=== PATIENT | male | born 1965 | race Caucasian/White ===

== ENCOUNTER 2020-03-04 06:56 | Outpatient (REF) | payer BC, SELFPAY ==
[2020-03-04 08:59] LABS: Alanine Aminotransferase 66 U/L (0-40); Albumin Level 4.5 g/dL (3.5-5.0); Alkaline Phosphatase 47 U/L (39-117); Aspartate Amino Transferase 55 U/L (5-37); Bilirubin Direct 0.2 mg/dL (0.0-0.5); Bilirubin Total 0.6 mg/dL (0.0-1.0); Cholesterol 169 mg/dL; HDL Cholesterol 46 mg/dL; LDL Cholesterol Calculated 94 mg/dl; Total Protein 6.9 g/dL (6.5-8.0); Triglycerides 147 mg/dL
[2020-03-04 09:37] LABS: Reflex LDLD? No
== END 2020-03-04 06:57 | disposition home or self-care (01) ==
LOC: HO.LAB 06:56
PROVIDERS: Visit Provider Internal Medicine
DX: E78.00 Pure hypercholesterolemia, unspecified (principal)
CPT/HCPCS: 36415; 80061; 80076

== ENCOUNTER 2020-07-04 15:56 | Outpatient (REF) | payer BC, SELFPAY ==
--- NOTE | 2020-07-04 | PFT_ITS ---
INDICATION: Shortness of breath. SPIROMETRY: The FEV1 to FVC of 82% with an FEV1 of 3.86 L, which is 97% predicted and an FVC of 4.68 L, which is 91% predicted. No significant response to bronchodilators noted. Normal small airways. Maximum voluntary ventilation 90% predicted. LUNG VOLUMES: Total lung capacity 92% predicted with an expiratory reserve volume of 34% predicted likely from elevated BMI. DIFFUSION CAPACITY: 90% predicted. COMPARISONS: None. INTERPRETATION: No obstructive nor restrictive ventilatory defects identified. No significant response to bronchodilators noted. Again, normal lung volumes except for decrease in the ERV due to an elevated BMI. Diffusion capacity is within normal limits. If asthma is in the differential, methacholine challenge may be helpful in assessing for hyper-reactive airways. Clinical correlation warranted. MD ZULY Camejo/KRIS / [phone]
== END 2020-07-04 15:57 | disposition home or self-care (01) ==
LOC: HO.RESP 15:56
PROVIDERS: PCP Internal Medicine; Visit Provider Internal Medicine
DX: J45.990 Exercise induced bronchospasm (principal)
CPT/HCPCS: 94060; 94727; 94729

== ENCOUNTER 2020-09-02 10:22 | Outpatient (REF) | payer BC, SELFPAY ==
[2020-09-02 10:25] LABS: MANUAL DIFF FLAG NO
[2020-09-02 10:45] LABS: Basophils Absolute Auto 0.1 X10*3/uL (0.0-0.2); Basophils Percent Auto 0.6 % (0-2); Eosinophils Absolute Auto 0.3 X10*3/uL (0.0-0.4); Eosinophils Percent Auto 3.6 % (0-4); Hematocrit 46.7 % (42-52); Hemoglobin 15.8 g/dl (14.0-18.0); Imm Gran Abs Auto 0.05 X10*3/uL (0.00-0.03); Imm Gran Pct Auto 0.6 % (0.0-0.4); Lymphocytes Absolute Auto 3.5 X10*3/uL (1.2-4.9); Lymphocytes Percent Auto 40.1 % (20-40); Mean Corpuscular HGB Conc 33.8 g/dl (31.0-36.0); Mean Corpuscular Hemoglobin 30.9 pg (27.0-33.0); Mean Corpuscular Volume 91.2 fL (80-98); Mean Platelet Volume 10.4 fL (9.4-12.4); Monocytes Absolute Auto 0.8 X10*3/uL (0.1-1.2); Monocytes Percent Auto 9.8 % (2-11); Neutrophils Absolute Auto 3.9 X10*3/uL (2.0-8.3); Neutrophils Percent Auto 45.3 % (45-73); Platelet Count 235 X10*3/uL (160-400); Red Blood Count 5.12 X10*6/uL (4.60-5.80); Red Cell Distribution Width 12.4 % (11.0-16.0); White Blood Count 8.6 X10*3/uL (4.8-10.8)
[2020-09-02 11:11] LABS: Glucose Urine UA NEG (NEG); Leukocyte Esterase Urine NEG (NEG); Nitrite Urine NEG (NEG); Specific Gravity - Urine 1.025 (1.005-1.025); Urine Blood 2+ (NEG); Urine Ketones NEG (NEG); Urine Protein NEG (NEG-TRACE)
[2020-09-02 11:13] LABS: Appearance Urine CLEAR; Color Urine YELLOW
[2020-09-02 11:28] LABS: Alanine Aminotransferase 25 U/L (0-40); Albumin Level 4.3 g/dL (3.5-5.0); Alkaline Phosphatase 36 U/L (39-117); Anion Gap 14 (12-20); Aspartate Amino Transferase 25 U/L (5-37); Bilirubin Total 0.6 mg/dL (0.0-1.0); Blood Urea Nitrogen 16 mg/dL (9-16); Calcium 9.7 mg/dL (8.4-10.2); Carbon Dioxide 25 mmol/L (22-29); Chloride 106 mmol/L (96-108); Cholesterol 150 mg/dL; Estimated Glomerular Filt Rate > 60; Glucose Fasting 90 mg/dL (60-99); HDL Cholesterol 48 mg/dL; LDL Cholesterol Calculated 81 mg/dl; Potassium 4.6 mmol/L (3.3-5.1); Sodium 140 mmol/L (135-145); Total Protein 6.8 g/dL (6.5-8.0); Triglycerides 106 mg/dL
[2020-09-02 11:30] LABS: PSA,Total (Free>4and<10) 0.76 ng/mL (0.00-4.00); Reflex LDLD? No
[2020-09-02 11:44] LABS: WBC Urine 0 /HPF (0-4)
== END 2020-09-02 10:23 | disposition home or self-care (01) ==
LOC: HO.LNP 10:22
PROVIDERS: Visit Provider Internal Medicine
DX: Z00.00 Encounter for general adult medical examination without abnormal findings (principal); Z12.5 Encounter for screening for malignant neoplasm of prostate; R79.89 Other specified abnormal findings of blood chemistry; R09.89 Other specified symptoms and signs involving the circulatory and respiratory systems; E78.00 Pure hypercholesterolemia, unspecified
CPT/HCPCS: 80053; 80061; 81001; 81003; 84153; 85025

== ENCOUNTER 2021-03-19 10:26 | Outpatient (REF) | payer BC, SELFPAY ==
[2021-03-19 11:35] LABS: Alanine Aminotransferase 29 U/L (0-40); Albumin Level 4.3 g/dL (3.5-5.0); Alkaline Phosphatase 41 U/L (39-117); Aspartate Amino Transferase 24 U/L (5-37); Bilirubin Direct 0.2 mg/dL (0.0-0.5); Bilirubin Total 0.5 mg/dL (0.0-1.0); Cholesterol 164 mg/dL; HDL Cholesterol 41 mg/dL; LDL Cholesterol Calculated 96 mg/dl; Total Protein 7.1 g/dL (6.5-8.0); Triglycerides 138 mg/dL
[2021-03-19 11:57] LABS: Reflex LDLD? No
== END 2021-03-19 10:27 | disposition home or self-care (01) ==
LOC: HO.LNP 10:26
PROVIDERS: Visit Provider Internal Medicine
DX: E78.00 Pure hypercholesterolemia, unspecified (principal)
CPT/HCPCS: 80061; 80076

== ENCOUNTER → 2021-05-21 12:48 | Outpatient (BNVA) | payer BC, SELFPAY | PROVIDERS: PCP Internal Medicine; Visit Provider Orthopaedic Surgery | DX: M76.62 Achilles tendinitis, left leg (principal) | CPT/HCPCS: 99202 ==

== ENCOUNTER → 2021-07-02 15:20 | Outpatient (BNVA) | payer BC, SELFPAY | PROVIDERS: PCP Internal Medicine; Visit Provider Orthopaedic Surgery | DX: M76.62 Achilles tendinitis, left leg (principal) ==

== ENCOUNTER 2021-09-17 10:56 | Outpatient (REF) | payer BC, SELFPAY ==
[2021-09-17 10:59] LABS: MANUAL DIFF FLAG NO
[2021-09-17 11:12] LABS: Appearance Urine CLEAR; Color Urine STRAW; Glucose Urine UA NEG (NEG); Leukocyte Esterase Urine NEG (NEG); Nitrite Urine NEG (NEG); Specific Gravity - Urine <= 1.005 (1.005-1.025); Urine Blood 2+ (NEG); Urine Ketones NEG (NEG); Urine Protein NEG (NEG-TRACE)
[2021-09-17 11:15] LABS: Basophils Absolute Auto 0.1 X10*3/uL (0.0-0.2); Basophils Percent Auto 0.7 % (0-2); Eosinophils Absolute Auto 0.1 X10*3/uL (0.0-0.4); Eosinophils Percent Auto 1.2 % (0-4); Hematocrit 47.9 % (42.0-52.0); Hemoglobin 16.4 g/dl (14.0-18.0); Imm Gran Abs Auto 0.02 X10*3/uL (0.00-0.03); Imm Gran Pct Auto 0.2 % (0.0-0.4); Lymphocytes Absolute Auto 2.3 X10*3/uL (1.2-4.9); Lymphocytes Percent Auto 26.8 % (20-40); Mean Corpuscular HGB Conc 34.2 g/dl (31.0-36.0); Mean Corpuscular Hemoglobin 31.4 pg (27.0-33.0); Mean Corpuscular Volume 91.8 fL (80.0-98.0); Mean Platelet Volume 10.1 fL (9.4-12.4); Monocytes Absolute Auto 0.9 X10*3/uL (0.1-1.2); Monocytes Percent Auto 9.9 % (2-11); Neutrophils Absolute Auto 5.3 x10*3/uL (2.0-8.3); Neutrophils Percent Auto 61.2 % (45-73); Platelet Count 293 X10*3/uL (160-400); Red Blood Count 5.22 X10*6/uL (4.60-5.80); White Blood Count 8.7 X10*3/uL (4.8-10.8)
[2021-09-17 11:32] LABS: Squamous Epithelial Cell Urine TRACE /LPF; WBC Urine 0 /HPF (0-4)
[2021-09-17 11:53] LABS: Alanine Aminotransferase 32 U/L (0-40); Albumin Level 4.6 g/dL (3.5-5.0); Alkaline Phosphatase 43 U/L (39-117); Anion Gap 12 (12-20); Aspartate Amino Transferase 30 U/L (5-37); Bilirubin Total 0.7 mg/dL (0.0-1.0); Blood Urea Nitrogen 15 mg/dL (9-16); Calcium 9.3 mg/dL (8.4-10.2); Carbon Dioxide 24 mmol/L (22-29); Chloride 104 mmol/L (96-108); Cholesterol 166 mg/dL; Estimated Glomerular Filt Rate > 60; Glucose Fasting 98 mg/dL (60-99); HDL Cholesterol 47 mg/dL; LDL Cholesterol Calculated 97 mg/dl; Potassium 4.3 mmol/L (3.3-5.1); Sodium 136 mmol/L (135-145); Total Protein 7.1 g/dL (6.5-8.0); Triglycerides 113 mg/dL
== END 2021-09-17 10:57 | disposition home or self-care (01) ==
LOC: HO.LNP 10:56
PROVIDERS: Visit Provider Internal Medicine
DX: Z00.00 Encounter for general adult medical examination without abnormal findings (principal); E78.00 Pure hypercholesterolemia, unspecified
CPT/HCPCS: 80053; 80061; 81001; 85025

== ENCOUNTER 2021-09-22 15:37 | Outpatient (REF) | payer BC, SELFPAY ==
[2021-09-22 16:39] LABS: PSA,Total (Free>4and<10) 0.58 ng/mL (0.00-4.00)
== END 2021-09-22 15:38 | disposition home or self-care (01) ==
LOC: HO.LNP 15:37
PROVIDERS: Visit Provider Internal Medicine
DX: Z12.5 Encounter for screening for malignant neoplasm of prostate (principal); E78.00 Pure hypercholesterolemia, unspecified
CPT/HCPCS: 84153

== ENCOUNTER 2021-12-03 13:58 | Outpatient (REF) | payer BC, SELFPAY ==
--- NOTE | ~2021-12-03 | US_ITS ---
EXAMINATION: US SOFT TISSUE HEAD/NECK CLINICAL INFORMATION: Pilar cyst of scalp. Palpable lump slightly left of midline. COMPARISON: Ultrasound soft tissue head/neck 10/18/2019. TECHNIQUE: Linear transducer grayscale and color Doppler examination of the lump is slightly left of midline. FINDINGS: Limited imaging through the palpable lump left of midline is in a complex echogenic area measuring 4.6 x 3.4 x 1.9 cm. This may represent a sebaceous cyst. US/US soft tiss head and/or neck IMPRESSION: Soft nonvascular mass left the scalp of midline with multiple echogenic areas within most suggestive of a sebaceous cysts. It is well delineated and has circumferential wall. If clinically deemed necessary, a surgical enucleation can be performed. Correlation with noncontrast CT brain prior to removal can be performed.
== END 2021-12-03 13:59 | disposition home or self-care (01) ==
LOC: HO.US 13:58
PROVIDERS: Visit Provider Internal Medicine
DX: L72.11 Pilar cyst (principal)
CPT/HCPCS: 76536

== ENCOUNTER 2022-02-02 14:53 | Outpatient (REF) | payer BC, SELFPAY ==
[2022-02-02 13:52] VITALS: BMI 32.8
[2022-02-02 13:54] VITALS: BP 163/85; PULSE 58; RESP 16; TEMP 36.7; O2SAT 98
[2022-02-02 14:45] VITALS: BP 146/80; PULSE 63; RESP 16; O2SAT 98
--- NOTE | 2022-02-02 14:45 | W.PM.OPN ---
Operative Note Operative Note Date of Service: 02/02/22 Narrative: Preoperative diagnosis: Pilar cyst posterior scalp Postoperative diagnosis: same Procedure: excision of Pilar cyst posterior scalp Surgeon: Erik Duncan MD Steward/Stewardess Chief Cargo Vessel: none Anesthesia: Sensorcaine 0.5% with epinephrine Indications for procedure: 56-year-old male patient presenting with enlarging Pilar cyst of the posterior scalp measuring approximately 3 cm in diameter Operative findings: Pilar cyst posterior scalp 3 cm Specimen: Pilar cyst posterior scalp Estimated blood loss: 2 mL Complications: none Procedure details: patient was brought to the minor surgery suite placed in a prone position. The site of surgery was confirmed by the patient in the posterior midline scalp. After assuring informed consent the skin was prepped with Betadine and draped in a sterile fashion. Local anesthesia was then infiltrated circumferentially around the cyst. Elliptical incision was then created oriented longitudinally. This was carried out through subcutaneous tissue up to the cyst wall. Sharp dissection was then used using the Metzenbaum scissors to excise around the cyst wall. The lesion was excised and sent to pathology for further examination. Hemostasis was assured using light pressure. Dermis was then reapproximated using interrupted 3-0 Polysorb sutures. Skin was closed using interrupted 3-0 Prolene sutures. Bacitracin was then applied. The patient tolerated the procedure well. He was discharged to home in stable condition.
== END 2022-02-02 14:54 | disposition home or self-care (01) ==
LOC: HO.MS 14:53
PROVIDERS: PCP Internal Medicine; Visit Provider Surgery
PROC: (CPT 11423; principal; 2022-02-02 14:00)
DX: L72.11 Pilar cyst (principal); Z79.899 Other long term (current) drug therapy; Z88.8 Allergy status to other drugs, medicaments and biological substances
CPT/HCPCS: 11423; 88304

== ENCOUNTER 2022-03-25 11:20 | Outpatient (REF) | payer BC, SELFPAY ==
[2022-03-25 12:01] LABS: Alanine Aminotransferase 30 U/L (0-40); Albumin Level 4.4 g/dL (3.5-5.0); Alkaline Phosphatase 43 U/L (39-117); Aspartate Amino Transferase 28 U/L (5-37); Bilirubin Direct 0.2 mg/dL (0.0-0.5); Bilirubin Total 0.7 mg/dL (0.0-1.0); Cholesterol 172 mg/dL; HDL Cholesterol 44 mg/dL; LDL Cholesterol Calculated 100 mg/dl; Total Protein 6.9 g/dL (6.5-8.0); Triglycerides 141 mg/dL
[2022-03-25 14:07] LABS: Reflex LDLD? No
== END 2022-03-25 11:21 | disposition home or self-care (01) ==
LOC: HO.LNP 11:20
PROVIDERS: Visit Provider Internal Medicine
DX: E78.00 Pure hypercholesterolemia, unspecified (principal)
CPT/HCPCS: 80061; 80076

== ENCOUNTER 2022-10-12 11:10 | Outpatient (REF) | payer BC, SELFPAY ==
[2022-10-12 11:15] LABS: MANUAL DIFF FLAG NO
[2022-10-12 12:20] LABS: Basophils Absolute Auto 0.1 X10*3/uL (0.0-0.2); Basophils Percent Auto 0.7 % (0-2); Eosinophils Absolute Auto 0.2 X10*3/uL (0.0-0.4); Hematocrit 48.5 % (42.0-52.0); Hemoglobin 16.5 g/dl (14.0-18.0); Imm Gran Abs Auto 0.03 X10*3/uL (0.00-0.03); Imm Gran Pct Auto 0.4 % (0.0-0.4); Lymphocytes Absolute Auto 2.6 X10*3/uL (1.2-4.9); Mean Corpuscular Hemoglobin 31.3 pg (27.0-33.0); Mean Platelet Volume 10.7 fL (9.4-12.4); Monocytes Absolute Auto 0.8 X10*3/uL (0.1-1.2); Monocytes Percent Auto 10.5 % (2-11); Neutrophils Absolute Auto 3.9 x10*3/uL (2.0-8.3); Neutrophils Percent Auto 52.4 % (45-73); Platelet Count 277 X10*3/uL (160-400); Red Blood Count 5.27 X10*6/uL (4.60-5.80); Red Cell Distribution Width 12.1 % (11.0-16.0); White Blood Count 7.5 X10*3/uL (4.8-10.8)
[2022-10-12 12:22] LABS: Appearance Urine Clear; Color Urine Yellow; Glucose Urine UA Negative (Negative); Leukocyte Esterase Urine Negative (Negative); Nitrite Urine Negative (Negative); Specific Gravity - Urine 1.025 (1.005-1.025); UMIC TRIGGER UACC YES; Urine Blood Moderate (2+) (Negative); Urine Ketones Negative (Negative); Urine Protein Trace mg/dL (Neg-Trace)
[2022-10-12 12:25] LABS: Bacteria Urine None Seen (None Seen); RBC Urine >20 /HPF (0-2); Squamous Epithelial Cell Urine 0-2 /HPF (0-2); WBC Urine 0-5 /HPF (0-5)
[2022-10-12 12:29] LABS: Alanine Aminotransferase 41 U/L (0-40); Albumin Level 4.4 g/dL (3.5-5.0); Alkaline Phosphatase 46 U/L (39-117); Anion Gap 11 (12-20); Aspartate Amino Transferase 48 U/L (5-37); Bilirubin Total 0.4 mg/dL (0.0-1.0); Blood Urea Nitrogen 21 mg/dL (9-16); Calcium 9.7 mg/dL (8.4-10.2); Carbon Dioxide 28 mmol/L (22-29); Chloride 107 mmol/L (96-108); Cholesterol 151 mg/dL; Estimated Glomerular Filt Rate > 60; Glucose Fasting 95 mg/dL (60-99); HDL Cholesterol 44 mg/dL; LDL Cholesterol Calculated 93 mg/dl; Potassium 4.9 mmol/L (3.3-5.1); Sodium 141 mmol/L (135-145); Total Protein 7.3 g/dL (6.5-8.0); Triglycerides 73 mg/dL
[2022-10-12 12:46] LABS: PSA,Total (Free>4and<10) 0.58 ng/mL (0.00-4.00)
== END 2022-10-12 11:11 | disposition home or self-care (01) ==
LOC: HO.LNP 11:10
PROVIDERS: Visit Provider Internal Medicine
DX: Z00.00 Encounter for general adult medical examination without abnormal findings (principal); Z12.5 Encounter for screening for malignant neoplasm of prostate; E78.00 Pure hypercholesterolemia, unspecified
CPT/HCPCS: 80053; 80061; 81001; 84153; 85025

== ENCOUNTER 2023-02-25 08:54 | Outpatient (AMB) | payer BC, SELFPAY ==
--- NOTE | 2023-02-25 09:03 | A.OFFVIS_ITS ---
Intake Intake Visit Reasons: Newp- Strain of left foot Intake Note: Shar a 57 year old male presents today for an evaluation of left foot, DOI 12/12/22. Patient reports injuring his foot in dance class when he hand to put all his weight on the ball of his foot. He states that he didn't feel pain instantly but a couple days after he started to feel pain and soreness. Patient saw a weight shifter and got an MRI which showed he has a deep muscle strain. The basket weaved his foot for a week and a half which didn't give him relief. Also, he was prescribed 6 day prednisone to help with the pain, however it didn't help. Allergies Hayfebrol Allergy (Unknown, Uncoded 02/25/23 09:05) Unknown HPI Newp- Strain of left foot HPI Details 57-year-old male who presents to the off ice today for evaluation of left foot injury s/p dancing during a dance class when he put all his weight on the ball of his foot, 12/12/22. He reports he experienced pain and soreness after 2 days and was seen by a weight shifter where an MRI was ordered and was prescribed 6 days prednisone which did not help. He states he has pain in his foot with getting out of his car after prolonged sitting. He also c/o occasional sharp pain in his foot at night. He is currently able to ambulate without pain. He states his foot was basket weaved by his [employer] Tender for about 10 days ago which did not provide him any relief. [facility] Surgical History History of removal of cyst (02/02/22) S/P right knee arthroscopy Family History Father Liver cancer Social History Current occupational status: employed Current occupation: [employer] Review of Systems Const All systems reviewed & are unremarkable except as noted in HPI and below Physical Exam Extrem Other: Left foot: Normal to inspection. No specific tenderness to palpation on exam. He does have tenderness along the plantar fascia. No bony abnormality no tenderness or defect along the Achilles tendon or the body of the calf. NVI. Results Reviewed Results Reviewed: Xrays were obtained in the office today and personally reviewed by me of the left foot show old avulsion fragment along the lateral edge of the foot Assessment & Plan Assessment & Plan (1) Plantar fasciitis of left foot: Code(s): M72.2 - Plantar fascial fibromatosis (2) Strain of soleus muscle: Code(s): S86.119A - Strain of other muscle(s) and tendon(s) of posterior muscle group at lower leg level, unspecified leg, initial encounter Qualifiers: Encounter type: initial encounter Laterality: left Qualified Code(s): S86.112A - Strain of other muscle(s) and tendon(s) of posterior muscle group at lower leg level, left leg, initial encounter (3) Ankle sprain: Code(s): S93.409A - Sprain of unspecified ligament of unspecified ankle, initial encounter Qualifiers: Encounter type: initial encounter Involved ligament of ankle: anterior talofibular ligament Laterality: left Qualified Code(s): S93.492A - Sprain of other ligament of left ankle, initial encounter Plan We discussed options which include night splinting for what appears to be plantar fasciitis along with physical therapy. He had an MRI at [facility] in December which show a psoas muscle sprain along with ATFL sprain. He will begin a course of physical therapy to work on gentle ROM, strengthening and proprioceptive training. If symptoms persist or worsens over the next 6-8 weeks, patient will contact the office, otherwise follow-up as needed. Orders: Orders XR foot LT min 3V Today M79.672 - Pain in left foot PT Evaluation and Treatment Today M72.2 - Plantar fascial fibromatosis, S86.119A - Strain of other muscle(s) and tendon(s) of posterior muscle group at lower leg level, unspecified leg, initial encounter, S93.409A - Sprain of unspecified ligament of unspecified ankle, initial encounter Patient Instructions: Scribed for Demetris Cooper PA-C, by Bishnu Cummings medical certification specialist, on 02/25/2023 at 9:00 AM MARKOS. Demetris Santana PA-C, have personally reviewed and agree with the information entered by the scribe. Coding Level of Care Code Est Pt Level 3 (51649) Diagnoses Plantar fasciitis of left foot M72.2 Strain of left soleus muscle, initial encounter S86.112A Encounter type: initial encounter Laterality: left Sprain of anterior talofibular ligament of left ankle, initial encounter S93.492A Encounter type: initial encounter Involved ligament of ankle: anterior talofibular ligament Laterality: left
== END 2023-02-25 09:37 | disposition home or self-care (01) ==
PROVIDERS: PCP Internal Medicine; Visit Provider Physician Assistant
DX: M72.2 Plantar fascial fibromatosis (principal); S93.492A Sprain of other ligament of left ankle, initial encounter; S86.112A Strain of other muscle(s) and tendon(s) of posterior muscle group at lower leg level, left leg, initial encounter
CPT/HCPCS: 99213

== ENCOUNTER 2023-02-25 10:17 | Outpatient (REF) | payer BC, SELFPAY | END 2023-02-25 10:18 | disposition home or self-care (01) | LOC: HO.HOSX 10:17 | PROVIDERS: Visit Provider Physician Assistant | DX: M79.672 Pain in left foot (principal); S86.112A Strain of other muscle(s) and tendon(s) of posterior muscle group at lower leg level, left leg, initial encounter | CPT/HCPCS: 73630 ==

== ENCOUNTER 2023-04-15 07:44 | Outpatient (REF) | payer BC, SELFPAY ==
[2023-04-15 08:22] LABS: Alanine Aminotransferase 60 U/L (0-40); Albumin Level 4.4 g/dL (3.5-5.0); Alkaline Phosphatase 45 U/L (39-117); Aspartate Amino Transferase 39 U/L (5-37); Bilirubin Direct 0.2 mg/dL (0.0-0.5); Bilirubin Total 0.4 mg/dL (0.0-1.0); Cholesterol 172 mg/dL (<200); HDL Cholesterol 49 mg/dL (>40); LDL Cholesterol Calculated 99 mg/dL (<100); Total Protein 7.1 g/dL (6.5-8.0); Triglycerides 123 mg/dL (<150)
[2023-04-15 08:35] LABS: Reflex LDLD? No
== END 2023-04-15 07:45 | disposition home or self-care (01) ==
LOC: HO.LAB 07:44
PROVIDERS: PCP Internal Medicine; Visit Provider Internal Medicine
DX: E78.00 Pure hypercholesterolemia, unspecified (principal)
CPT/HCPCS: 36415; 80061; 80076

== ENCOUNTER 2023-05-06 10:04 | Outpatient (AMB) | payer BC, SELFPAY ==
--- NOTE | 2023-05-06 10:26 | MHC.OFFVIS ---
Intake Intake Visit Reasons: ov- left ankle/foot, DOI 12/12/22 Intake Note: Shar 57 yr old male presents today for his follow up visit for his left ankle/foot injury from 12/12/22. States his pain is worse than before and therapy is not helping. States his therapist suggested a stress ultrasound or a CT scan for further evaluation. Allergies Hayfebrol Allergy (Unknown, Uncoded 05/06/23 10:30) Unknown HPI ov- left ankle/foot, DOI 12/12/22 HPI Details 57-year-old male who returns to the office today for a follow-up of left ankle injury, 12/12/22. He states he has pain which has been worsened since surgery and gets occasionally aggravated at night. He denies any pain with ambulation or going upstairs however he does have a sharp shooting pain with prolonged standing and achiness with sitting. He had attended physical therapy which did not provide him any relief. [facility] Surgical History History of removal of cyst (02/02/22) S/P right knee arthroscopy Family History Father Liver cancer Social History Current occupational status: employed Current occupation: [employer] Review of Systems Const All systems reviewed & are unremarkable except as noted in HPI and below Physical Exam Extrem Other: Left foot: Normal to inspection. No specific tenderness to palpation on exam. No bony abnormality no tenderness or defect along the Achilles tendon or the body of the calf. NVI. Assessment & Plan Assessment & Plan (1) Strain of left foot: Code(s): S96.912A - Strain of unspecified muscle and tendon at ankle and foot level, left foot, initial encounter Qualifiers: Encounter type: initial encounter Qualified Code(s): S96.912A - Strain of unspecified muscle and tendon at ankle and foot level, left foot, initial encounter Plan We discussed options which include using the boot to help get the pressure off of his foot while ambulating to see if the boot keeps the foot at rest. In the meantime, we will order a CT scan to further evaluate the source of his pain. He will follow-up once the scan is complete. Orders: Orders CT foot LT wo IV con Today S96.912A - Strain of unspecified muscle and tendon at ankle and foot level, left foot, initial encounter Patient Instructions: Scribed for Demetris Cooper PA-C, by Bishnu Cummings medical billing and coding specialist, on 05/06/2023 at 10:15 AM EST. Demetris Santana PA-C, have personally reviewed and agree with the information entered by the scribe. Coding Level of Care Code Est Pt Level 3 (43179) Diagnoses Strain of left foot, initial encounter S96.912A Encounter type: initial encounter
== END 2023-05-06 12:01 | disposition home or self-care (01) ==
PROVIDERS: PCP Internal Medicine; Referring Provider Internal Medicine; Visit Provider Physician Assistant
DX: S96.912A Strain of unspecified muscle and tendon at ankle and foot level, left foot, initial encounter (principal)
CPT/HCPCS: 99213

== ENCOUNTER → 2023-05-06 10:04 | Outpatient (BNVA) | payer BC, SELFPAY | PROVIDERS: PCP Internal Medicine; Visit Provider Physician Assistant ==

== ENCOUNTER 2023-06-01 07:41 | Outpatient (REF) | payer BC, SELFPAY ==
--- NOTE | ~2023-06-01 | CT_ITS ---
EXAMINATION: CT FOOT WITHOUT CONTRAST, LEFT CLINICAL INFORMATION: Left foot strain. Pain. COMPARISON: Most recent left foot radiographs dated 02/25/2023. Left foot MRI dated 01/19/2017. TECHNIQUE: Contiguous axial CT images of the left foot were obtained without contrast. Multiplanar reformats were provided and reviewed. This CT examination was performed using dose optimization techniques as appropriate, variously including the following: *Automated exposure control *Adjustment of mA and/or kV according to patient size (this includes techniques or standardized protocols for targeted exams where dose is matched to indication/reason for exam; i.e. extremities or head) *Use of iterative reconstruction technique. DOSE: 118 mGy-cm. FINDINGS: No acute fracture or dislocation. Chronic-appearing fracture of the tibial hallux sesamoid, unchanged when compared to the prior MRI. The ankle mortise is maintained. Moderate joint space narrowing with subchondral cystic change and marginal osteophytes at the 1st metatarsophalangeal joint. No concerning lytic or blastic osseous lesion. No talar osteochondral lesion. No abnormal soft tissue mass or fluid collection. No significant joint effusion. The visualized muscles and tendons are grossly intact. Evaluation is somewhat limited on CT examination. CT/CT foot LT wo IV con IMPRESSION: 1. No acute fracture or dislocation. 2. Chronic fracture of the tibial hallux sesamoid, unchanged when compared to the prior MRI. 3. 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
== END 2023-06-01 07:42 | disposition home or self-care (01) ==
LOC: HO.CT 07:41
PROVIDERS: PCP Internal Medicine; Visit Provider Physician Assistant
DX: M84.475A Pathological fracture, left foot, initial encounter for fracture (principal); M19.09 Primary osteoarthritis, other specified site; M79.672 Pain in left foot
CPT/HCPCS: 73700

== ENCOUNTER 2023-06-20 11:14 | Outpatient (REF) | payer BC, SELFPAY ==
[2023-06-20 11:41] LABS: Alanine Aminotransferase 35 U/L (0-40); Albumin Level 4.4 g/dL (3.5-5.0); Alkaline Phosphatase 45 U/L (39-117); Aspartate Amino Transferase 26 U/L (5-37); Bilirubin Direct 0.1 mg/dL (0.0-0.5); Bilirubin Total 0.3 mg/dL (0.0-1.0); Cholesterol 222 mg/dL (<200); HDL Cholesterol 41 mg/dL (>40); LDL Cholesterol Calculated 137 mg/dL (<100); Total Protein 7.3 g/dL (6.5-8.0); Triglycerides 224 mg/dL (<150)
[2023-06-20 11:50] LABS: Reflex LDLD? No
== END 2023-06-20 11:15 | disposition home or self-care (01) ==
LOC: HO.LNP 11:14
PROVIDERS: Visit Provider Internal Medicine
DX: E78.00 Pure hypercholesterolemia, unspecified (principal)
CPT/HCPCS: 80061; 80076

== ENCOUNTER 2023-06-22 15:14 | Outpatient (AMB) | payer BC, SELFPAY ==
[2023-06-22 15:14] VITALS: BMI 32.1
--- NOTE | 2023-06-22 15:14 | MHC.OFFVIS ---
Vital Signs 06/22/23 15:14 Height 5 ft 11 in Weight 230 lb BMI 32.1 Intake Visit Reasons: Tel-CT Foot LT-review Intake Note: Shar a 57 year old male who is scheduled for a telephone visit to review CT of left foot. Patient reports improvement in his pain since his last visit, stating he is about 90% better. Allergies Hayfebrol Allergy (Unknown, Uncoded 05/06/23 10:30) Unknown HPI HPI Tel-CT Foot LT-review: Details: Shar a 57 year old male who is scheduled for a telephone visit to review CT of left foot. Patient reports improvement in his pain since his last visit, stating he is about 90% better. PFSH Surgical History History of removal of cyst (02/02/22) S/P right knee arthroscopy Family History Father Liver cancer Social History Current occupational status: employed Current occupation: [employer] Review of Systems Const All systems reviewed & are unremarkable except as noted in HPI and below Physical Exam Vital Signs: BMI result Body Mass Index 32.1 Resp Effort & Inspection: normal respiratory effort and able to speak in complete sentences Telehealth Telehealth Telehealth Platform: Telephone Location of provider rendering services: practice address Location of patient: other (car) Patient Identification confirmed using: Name, : Yes Patient verbally consented to treatment: Yes Patient verbally consented to billing insurance company: Yes Patient informed of any privacy concerns related to visit: Yes Minutes spent on Phone/Video with Pt.: 12 Results Reviewed Results Reviewed: CT foot LT wo IV con 06/01/23 IMPRESSION: 1. No acute fracture or dislocation. 2. Chronic fracture of the tibial hallux sesamoid, unchanged when compared to the prior MRI. 3. 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 Assessment & Plan Assessment & Plan (1) Strain of left foot: Code(s): S96.912A - Strain of unspecified muscle and tendon at ankle and foot level, left foot, initial encounter Category: Medical Qualifiers: Encounter type: initial encounter Qualified Code(s): S96.912A - Strain of unspecified muscle and tendon at ankle and foot level, left foot, initial encounter Plan: He will continue with activity as tolerated since his pain is improving on its own. If he has any concerns he will contact our office , otherwise, prn. Coding Level of Care Code Tele Est Pt Level 3 (89211) Diagnoses Strain of left foot, initial encounter S96.912A Encounter type: initial encounter
== END 2023-06-22 15:45 | disposition home or self-care (01) ==
LOC: HO.HOS 15:14
PROVIDERS: PCP Internal Medicine; Referring Provider Internal Medicine; Visit Provider Physician Assistant
DX: S96.912A Strain of unspecified muscle and tendon at ankle and foot level, left foot, initial encounter (principal)
CPT/HCPCS: 99442

== ENCOUNTER → 2023-06-22 15:14 | Outpatient (BNVA) | payer BC, SELFPAY | PROVIDERS: PCP Internal Medicine; Visit Provider Physician Assistant ==

== ENCOUNTER 2023-09-13 16:31 | Outpatient (REF) | payer BC, SELFPAY ==
[2023-09-20 00:43] LABS: FIB-ALT 22 U/L (9-46); FIB-Alpha-2-Macroglobulin 280 mg/dL (106-279); FIB-Apolipoprotein A1 150 mg/dL (94-176); FIB-GGT 20 U/L (3-85); FIB-Haptoglobin 99 mg/dL (43-212); FIB-Total Bilirubin 0.3 mg/dL (0.2-1.2); Liver Fibrosis Stage F1; Nec Inflam Act Grade A0; Nec Inflam Act Score 0.09
== END 2023-09-13 16:32 | disposition home or self-care (01) ==
LOC: HO.LAB 16:31
PROVIDERS: PCP Internal Medicine; Visit Provider Internal Medicine Gastroenterology
DX: K75.81 Nonalcoholic steatohepatitis (NASH) (principal)
CPT/HCPCS: 36415; 81596

== ENCOUNTER 2023-10-06 11:00 | Outpatient (REF) | payer BC, SELFPAY ==
[2023-10-06 11:03] LABS: MANUAL DIFF FLAG NO
[2023-10-06 11:17] LABS: Appearance Urine Clear; Color Urine Yellow; Glucose Urine UA Negative (Negative); Leukocyte Esterase Urine Negative (Negative); Nitrite Urine Negative (Negative); PH 6.5 (5.0-9.0); UMIC TRIGGER UACC YES; Urine Blood Moderate (2+) (Negative); Urine Ketones Negative (Negative); Urine Protein Negative (Neg-Trace)
[2023-10-06 11:20] LABS: Basophils Absolute Auto 0.1 X10*3/uL (0.0-0.2); Basophils Percent Auto 0.9 % (0-2); Eosinophils Absolute Auto 0.3 X10*3/uL (0.0-0.4); Eosinophils Percent Auto 3.2 % (0-4); Hematocrit 46.8 % (42.0-52.0); Hemoglobin 16.1 g/dl (14.0-18.0); Imm Gran Abs Auto 0.03 X10*3/uL (0.00-0.03); Imm Gran Pct Auto 0.3 % (0.0-0.4); Lymphocytes Absolute Auto 3.4 X10*3/uL (1.2-4.9); Lymphocytes Percent Auto 36.1 % (20-40); Mean Corpuscular HGB Conc 34.4 g/dl (31.0-36.0); Mean Corpuscular Hemoglobin 32.4 pg (27.0-33.0); Mean Corpuscular Volume 94.2 fL (80.0-98.0); Mean Platelet Volume 10.4 fL (9.4-12.4); Monocytes Percent Auto 10.9 % (2-11); Neutrophils Absolute Auto 4.6 x10*3/uL (2.0-8.3); Neutrophils Percent Auto 48.6 % (45-73); Platelet Count 289 X10*3/uL (160-400); Red Blood Count 4.97 X10*6/uL (4.60-5.80); Red Cell Distribution Width 12.2 % (11.0-16.0); White Blood Count 9.4 X10*3/uL (4.8-10.8)
[2023-10-06 11:21] LABS: Bacteria Urine None Seen (None Seen); Hyaline Casts Urine 0-2 /LPF (0-2); Squamous Epithelial Cell Urine 0-2 /HPF (0-2); WBC Urine 0-5 /HPF (0-5)
[2023-10-06 11:34] LABS: Alanine Aminotransferase 27 U/L (0-40); Albumin Level 4.5 g/dL (3.5-5.0); Alkaline Phosphatase 43 U/L (39-117); Anion Gap 12 (12-20); Aspartate Amino Transferase 27 U/L (5-37); Bilirubin Direct 0.1 mg/dL (0.0-0.5); Bilirubin Total 0.5 mg/dL (0.0-1.0); Blood Urea Nitrogen 20 mg/dL (9-16); Calcium 9.9 mg/dL (8.4-10.2); Carbon Dioxide 28 mmol/L (22-29); Chloride 103 mmol/L (96-108); Cholesterol 228 mg/dL (<200); Estimated Glomerular Filt Rate > 60; Glucose Fasting 94 mg/dL (60-99); HDL Cholesterol 49 mg/dL (>40); LDL Cholesterol Calculated 145 mg/dL (<100); Potassium 4.8 mmol/L (3.3-5.1); Sodium 138 mmol/L (135-145); Total Protein 7.3 g/dL (6.5-8.0); Triglycerides 171 mg/dL (<150)
[2023-10-06 11:55] LABS: PSA,Total (Free>4and<10) 0.65 ng/mL (0.00-4.00)
== END 2023-10-06 11:01 | disposition home or self-care (01) ==
LOC: HO.LNP 11:00
PROVIDERS: Visit Provider Internal Medicine
DX: Z00.00 Encounter for general adult medical examination without abnormal findings (principal); Z87.448 Personal history of other diseases of urinary system; E78.00 Pure hypercholesterolemia, unspecified; K75.81 Nonalcoholic steatohepatitis (NASH); I10 Essential (primary) hypertension; Z12.5 Encounter for screening for malignant neoplasm of prostate
CPT/HCPCS: 80053; 80061; 80076; 81001; 82248; 84153; 85025

== ENCOUNTER 2023-12-27 08:59 | Day surgery (SDC) | payer BC, SELFPAY ==
[2023-11-25 16:02] VITALS: BMI 30.8
[2023-12-23 14:37] VITALS: BMI 30.8
--- NOTE | 2023-12-26 10:25 | HO.ANESPROP2 ---
Documented by User: Jessie Louis NP 12/26/23 10:26 HPI - Anesthesia Eval Consult details Narrative: 58yo M for Colonoscopy PMFSH Active Problems Active Problems: All Active Problems Strain of left foot (Acute) Ankle sprain (Acute) Strain of soleus muscle (Acute) Plantar fasciitis of left foot (Acute) Pilar cyst (Acute) Left Achilles tendinitis (Acute) Past Medical History Medical History Microscopic hematuria Gout Nonalcoholic steatohepatitis Family History Family History Father Liver cancer Surgical History Surgical History H/O colonoscopy History of removal of cyst (02/02/22) S/P right knee arthroscopy Social History Social History Patient Tobacco Use Status: Never used Tobacco Use of substances other than those prescribed or required for medical reasons: No Have you been hit, kicked, punched, or otherwise hurt by someone within the past year? If so, by whom?: No Are you DNR?: No Advance Directives: No Advance Directives Information Provided: Yes Recently lost weight without trying: No Nutrition Risks: No Nutritional Risk Current occupational status: employed Current occupation: [employer] Allergies Allergy/AdvReac Type Severity Reaction Status Date / Time mite-Dermatophagoides Allergy Unknown Verified 12/27/23 09:35 farinae, jason [dust mite - [place]] mold Allergy Unknown Verified 12/27/23 09:35 pollen extracts Allergy Unknown Verified 12/27/23 09:35 Hayfebrol Allergy Unknown Unknown Uncoded 12/27/23 09:35 Home Medications ?Medication ?Instructions ?Recorded ?Confirmed ?Last Taken ?Type indomethacin 50 mg capsule 50 mg PO TID PRN Outbreak 11/25/23 11/25/23 12/06/23 History valsartan 160 1 tab PO DAILY 11/25/23 11/25/23 12/25/23 History mg-hydrochlorothiazide 12.5 mg tablet Zyrtec 1 tab PO DAILY 12/27/23 12/27/23 12/25/23 History rosuvastatin 5 mg tablet 5 mg PO DAILY 12/27/23 12/27/23 12/25/23 History Exam Height,Weight and Vital Signs: Height 5 ft 11 in Weight 100.244 kg Assessment and Plan Assessment Anesthesia Assessment: Chart Reviewed Documented by User: Alicia Blum MD 12/27/23 09:48 PMFSH Past Medical History Medical History Microscopic hematuria Gout Nonalcoholic steatohepatitis Family History Family History Father Liver cancer Family history of problems with anesthesia: No Surgical History Surgical History H/O colonoscopy History of removal of cyst (02/02/22) S/P right knee arthroscopy History of Problems with Anesthesia: No Social History Social History Patient Tobacco Use Status: Never used Tobacco Use of substances other than those prescribed or required for medical reasons: No Have you been hit, kicked, punched, or otherwise hurt by someone within the past year? If so, by whom?: No Are you DNR?: No Advance Directives: No Advance Directives Information Provided: Yes Recently lost weight without trying: No Nutrition Risks: No Nutritional Risk Current occupational status: employed Current occupation: [employer] Allergies Allergy/AdvReac Type Severity Reaction Status Date / Time mite-Dermatophagoides Allergy Unknown Verified 12/27/23 09:35 farnila jason [dust mite - [place]] mold Allergy Unknown Verified 12/27/23 09:35 pollen extracts Allergy Unknown Verified 12/27/23 09:35 Hayfebrol Allergy Unknown Unknown Uncoded 12/27/23 09:35 Home Medications ?Medication ?Instructions ?Recorded ?Confirmed ?Last Taken ?Type indomethacin 50 mg capsule 50 mg PO TID PRN Outbreak 11/25/23 11/25/23 12/06/23 History valsartan 160 1 tab PO DAILY 11/25/23 11/25/23 12/25/23 History mg-hydrochlorothiazide 12.5 mg tablet Zyrtec 1 tab PO DAILY 12/27/23 12/27/23 12/25/23 History rosuvastatin 5 mg tablet 5 mg PO DAILY 12/27/23 12/27/23 12/25/23 History Exam Airway Mallampati Class: II TM Dist: >3cm Neck ROM: Full Heart: rrr Lungs: cta Assessment and Plan Assessment Anesthesia Assessment: Anesthesia Plan Discussed Final Anesthetic Review Family History of Problems with Anesthesia: No History of Problems with Anesthesia: No NPO: Yes ASA Class: II Final Preanesthetic Review: No Changes in Pt Med Stat, Meds/Allgs Chart Reviewed, Consent Obtained/Reviewed and Anes Risks/Benef Reviewed Patient Risk: Low Procedure Risk: Low Anesthetic Plan Anesthetic Plan: MAC: Disposition: Standard PACU
[2023-12-27 09:10] VITALS: BMI 30.7
[2023-12-27 09:34] VITALS: BP 131/66; PULSE 67; RESP 16; TEMP 36.5; O2SAT 98
[2023-12-27] MEDS: Lactated Ringers 1,000 ML 100 ML IVCONT (09:35)
--- NOTE | 2023-12-27 09:46 | P.HPSUR_ITS ---
Pre-Procedural Eval Section A - 24 Hr Update-Section A only Date of Service: 12/27/23 Section B - Complete if H&P > 30 days Chief Complaint: Other specified symptoms and signs involving Details of Present Illness: see H&P no changes Relevant Family History (Specify if Yes): No Relevant Social History: None Present Medications: see Short Stay Collaborative assessment Medical History: No relevant PMH History of Previous Operations: No relevant previous surgery Allergies: Allergies Allergy/AdvReac Type Severity Reaction Status Date / Time mite-Dermatophagoides Allergy Unknown Verified 12/27/23 09:35 farinae, jason [dust mite - [place]] mold Allergy Unknown Verified 12/27/23 09:35 pollen extracts Allergy Unknown Verified 12/27/23 09:35 Hayfebrol Allergy Unknown Unknown Uncoded 12/27/23 09:35 Review of Systems Sugical H&P ROS: Negative: Constitution, Cardiovascular, Respiratory, Neurological, Psychiatric, Hem-Onc, Allergic/Immunologic, Gastrointestinal, Genitourinary, Musculoskeletal, Integumentary, Endocrine and Eyes/Ears/Nose/Throat Exam Surgical H&P Exam: Normal: HEENT, Normal: Heart, Normal: Lungs, Normal: Extremities, Normal: Abdomen, Normal: Skin and Normal: Neurological Plan I have reviewed the history and physical and performed a pertinent physical examination on my patient. No changes have occurred unless specified. Time Spent With Patient Time: Total time managing care of this patient today ____ minutes.
[2023-12-27 10:20] VITALS: BP 117/73; PULSE 53; RESP 18; TEMP 36.4; O2SAT 97
--- NOTE | 2023-12-27 10:29 | OP_ITS ---
DATE OF SERVICE: 12/27/2023 SURGEON: Cleve Rincon MD INDICATIONS: Colon cancer screening. PREOPERATIVE DIAGNOSIS: POSTOPERATIVE DIAGNOSIS: PROCEDURE PERFORMED: Colonoscopy to the terminal ileum with biopsy. ESTIMATED BLOOD LOSS: COMPLICATIONS: ANESTHESIA: Monitored anesthesia care. ASSISTANTS: SPECIMENS: DESCRIPTION OF PROCEDURE: A history and physical were performed. The risks and benefits of the procedure were explained to the patient, and informed consent was obtained. The patient was placed in the left lateral decubitus position. A digital rectal exam was performed and was found to be normal. The Olympus pediatric video colonoscope was introduced into the rectum and advanced to the cecum. The cecum was identified by transillumination, palpation, and identification of ileocecal valve. Examination was performed and the scope was removed. He tolerated the procedure well and was taken to recovery area in stable condition. FINDINGS: The terminal ileum was examined and appeared normal. The visualized colonic mucosa was normal. The quality of prep was good. In the right colon was a less than 5 mm sessile polyp, which was removed with biopsy forceps. No other polyps were identified. Retroflexed examination showed small internal hemorrhoids. IMPRESSION: Colon polyp. RECOMMENDATION: Follow up the biopsy results. MD LYNNETTE Dickinson/KRIS / [id number]
[2023-12-27 10:35] VITALS: BP 131/83; PULSE 58; RESP 16; TEMP 36.4; O2SAT 98
== END 2023-12-27 12:24 | disposition home or self-care (01) ==
PROVIDERS: PCP Internal Medicine; Visit Provider Internal Medicine Gastroenterology
PROC: 0DJD8ZZ Inspection of Lower Intestinal Tract, Via Natural or Artificial Opening Endoscopic (ICD-10-PCS; CPT 45378; principal; 2023-12-27 10:40)
DX: Z12.11 Encounter for screening for malignant neoplasm of colon (principal); Z83.719 Family history of colon polyps, unspecified; D12.2 Benign neoplasm of ascending colon; K64.8 Other hemorrhoids; R19.8 Other specified symptoms and signs involving the digestive system and abdomen; K75.81 Nonalcoholic steatohepatitis (NASH); E78.5 Hyperlipidemia, unspecified; R31.29 Other microscopic hematuria; Z79.899 Other long term (current) drug therapy; M10.9 Gout, unspecified
CPT/HCPCS: 45380; 88305; J2704

== ENCOUNTER 2024-01-23 07:11 | Outpatient (REF) | payer BC, SELFPAY ==
[2024-01-23 07:46] LABS: Alanine Aminotransferase 34 U/L (0-40); Albumin Level 4.2 g/dL (3.5-5.0); Alkaline Phosphatase 41 U/L (39-117); Aspartate Amino Transferase 36 U/L (5-37); Bilirubin Direct 0.1 mg/dL (0.0-0.5); Bilirubin Total 0.3 mg/dL (0.0-1.0); Cholesterol 136 mg/dL (<200); HDL Cholesterol 38 mg/dL (>40); LDL Cholesterol Calculated 71 mg/dL (<100); Total Protein 6.6 g/dL (6.5-8.0); Triglycerides 138 mg/dL (<150)
[2024-01-23 08:43] LABS: Reflex LDLD? No
== END 2024-01-23 07:12 | disposition home or self-care (01) ==
LOC: HO.LAB 07:11
PROVIDERS: PCP Internal Medicine; Visit Provider Internal Medicine
DX: E78.00 Pure hypercholesterolemia, unspecified (principal)
CPT/HCPCS: 36415; 80061; 80076

== ENCOUNTER 2024-02-07 14:27 | Outpatient (REF) | payer BC, SELFPAY ==
[2024-02-07 14:59] LABS: Uric Acid 9.2 mg/dL (3.4-7.0)
--- OUTSIDE RECORDS SUMMARY | 2024-02-08 22:05 | XMS_ITS ---
Author Organization Willie Palomino MD Address [address] [place] [phone] Care Team Providers Care Medical Assistant Internal Medicine Name Role Phone Willie Palomino Primary Care Provider ALLERGIES No Known Allergies RESULTS Component Value Reference Range Notes Uric Acid Reviewed date:02/07/2024 03:16:03 PM Interpretation: Performing Lab:[facility], [address] [place] [phone] Notes/Report: Uric Acid 9.2 3.4-7.0 mg/dL REASON FOR VISIT DISCOLORATION OF TOE left great toe x 2 weeks with gout MEDICATIONS Medication SIG (Take, Route, Frequency, Duration) Notes Start Date End Date Status Colchicine 0.6 MG 1 tablet Orally twic e a day for 10 days 01/24/2017 Not-Taking ZyrTEC Allergy 10 MG 1 tablet Orally Onc e a day for 30 day(s) Not-Taking Rosuvastatin Calcium 5 MG take one table t by mouth every evening Orally Once a day for 90 days Active Valsartan-hydroCHLOROthiazi de 160-12.5 MG TAKE ONE TABLET BY MOUTH EVERY DAY Active Albuterol Sulfate HFA 108 (90 Base) MCG/ACT 1 puff as needed Inhalation every 4 hrs 02/08/2023 Active predniSONE 20 MG 2 tablets Orally Onc e a day for 7 days 02/07/2024 Active Indomethacin 50 MG take one capsule(s) three times a day with food Orally Three times a day for 10 days Active Ibuprofen 200 MG 1 tablet with food o r milk as needed Orally Three times a day Not-Taking Cyclobenzaprine HCl 5 MG 1 or 2tablet at bedtime as needed Orally twice a day for 10 days 08/04/2021 Not-Taking Albuterol Sulfate HFA 108 (90 Base) MCG/ACT 1 puff as needed Inhalation every 4 hrs Not-Taking VITAL SIGNS BMI 31.82 kg/m2 02/07/2024 Blood pressure systolic 138 mm Hg 02/07/20 Blood pressure diastolic 72 mm Hg 024 Height 70.5 in 02/07/2024 Weight 225 lbs 02/07/2024 weight is up 4 pounds since 10-25-23 Encounters Encounter Location Date Provider Diagnosis Willie Palomino MD [address] [place] [phone] 02/07/2024 Willie Palomino Acute idiopathic gout involving toe of left foot M10.072 ASSESSMENTS Encounter Date Diagnosis Assessment Notes Treatment Notes Treatment Clinical Notes 02/07/2024 Acute idiopathic gout involving toe of left foot (ICD-10 - M10.072) patient verbalized understanding of medication and directions for use PLAN OF TREATMENT Medication Medication Name Sig Start Date Stop Date Notes predniSONE 20 MG 2 tablets Orally Once a day for 7 days Treatment Notes Assessment Notes Acute idiopathic gout involv ing toe of left foot patient verbalized understanding of medication and directions for use Next Appt Details Provider Name:Willie gonzales, 04/26/2024 09:00:00 AM, [address] [place] [address], [address], [phone], Provider Name:Willie gonzales, 10/23/2024 07:00:00 AM, [address] [place] [address], [phone], Provider Name:Willie gonzales, 10/30/2024 09:30:00 AM, [address] [place] [address], [phone], Progress Notes * Examination Category Sub-Category Detail Notes General Examination GENERAL APPEARANCE: normal HEART: no murmurs, rubs, ga llops , regular rate and rhythm LUNGS: good air movement , no wheezes, rales, rhonchi , clear to auscultation bilaterally EXTREMITIES: abnormal left great toe with mild swelling and no pain
--- OUTSIDE RECORDS SUMMARY | 2024-02-08 22:05 | XMS_ITS ---
Author Organization Willie Palomino MD Address [address] [place] [phone] Care Team Providers Care Drivers' Cash Clerk Name Role Phone Willie Palomino Primary Care Provider [phone] ALLERGIES No Known Allergies RESULTS Component Value Reference Range Notes Occult Blood, Stool, Guaiac Reviewed date:10/25/2023 02:01:28 PM Interpretation:Negative Performing Lab: Notes/Report: Negative Occult Blood, Stool, Guaiac Neg REASON FOR VISIT ANNUAL EXAM MEDICATIONS Medication SIG (Take, Route, Frequency, Duration) Notes Start Date End Date Status ZyrTEC Allergy 10 MG 1 tablet Orally Onc e a day for 30 day(s) Not-Taking Rosuvastatin Calcium 5 MG take one table t by mouth every evening Orally Once a day for 90 days Active Albuterol Sulfate HFA 108 (90 Base) MCG/ACT 1 puff as needed Inhalation every 4 hrs 02/08/2023 Active Colchicine 0.6 MG 1 tablet Orally twic e a day for 10 days 01/24/2017 Not-Taking Valsartan-hydroCHLOROthiazi de 160-12.5 MG TAKE ONE TABLET BY MOUTH EVERY DAY Active Indomethacin 50 MG take one capsule(s) three times a day with food Orally Three times a day for 10 days Active Ibuprofen 200 MG 1 tablet with food o r milk as needed Orally Three times a day Not-Taking Albuterol Sulfate HFA 108 (90 Base) MCG/ACT 1 puff as needed Inhalation every 4 hrs Not-Taking Cyclobenzaprine HCl 5 MG 1 or 2tablet at bedtime as needed Orally twice a day for 10 days 08/04/2021 Not-Taking SOCIAL HISTORY Tobacco Use: Social History Observation Description Date Details (start date - stop date) Never Smoker NA - NA Sex Assigned At : Social History Observation Description Sex Assigned At Unknown Tobacco Use/Smoking Question Answer Notes Patient is a nonsmoker Additional Findings: Tobacco Non-User Cu rrent non-smoker, currently using no form of tobacco Alcohol Screen Question Answer Notes Did you have a drink containing alcohol in the p ast year? No Points 0 Interpretation Negative VITAL SIGNS BMI 31.26 kg/m2 10/25/2023 Blood pressure systolic 138 mm Hg 10/25/19 24 Blood pressure diastolic 72 mm Hg 024 Height 70.5 in 10/25/2023 Weight 221 lbs 10/25/2023 weight is down 11 pounds [facility] 4--24 Encounters Encounter Location Date Provider Diagnosis Willie Palomino MD [address] [place], [place] [phone] 10/25/2023 Willie Palomino History of hematuria Z87.448 ; Annual physical exam Z00.00 ; Pure hypercholesterolemia E78.00 ; Essential hypertension I10 ; Atherosclerosis of aorta I70.0 ; Skin lesion of back L98.9 ; Active asthma J45.909 ; Colon cancer screening Z12.11 and Depression screening Z13.31 ASSESSMENTS Encounter Date Diagnosis Assessment Notes Treatment Notes Treatment Clinical Notes 10/25/2023 History of hematuria (ICD-10 - Z87.448) has been evaluated in past 10/25/2023 Annual physical exam (ICD-10 - Z00.00) labs reviewed and discussed with patient 10/25/2023 Pure hypercholestero lemia (ICD-10 - E78.00) stable, will continue current regiment 10/25/2023 Essential hypertensi on (ICD-10 - I10) doing well. will continue current regiment 10/25/2023 Atherosclerosis of a sal (ICD-10 - I70.0) will continue to monitor 10/25/2023 Skin lesion of back (ICD-10 - L98.9) difficult to evaluate has been scratching. will recheck at next visit 10/25/2023 Active asthma (ICD-1 0 - J45.909) stable, will continue current regiment 10/25/2023 Colon cancer screeni ng (ICD-10 - Z12.11) guaiac negative 10/25/2023 Depression screening (ICD-10 - Z13.31) negative screen PLAN OF TREATMENT Medication Medication Name Sig Start Date Stop Date Notes Rosuvastatin Calcium 5 MG take one table t by mouth every evening Orally Once a day for 90 days Albuterol Sulfate HFA 108 (9 0 Base) MCG/ACT 1 puff as needed Inhalation every 4 hrs 02/08/2023 Valsartan-hydroCHLOROthiazid e 160-12.5 MG TAKE ONE TABLET BY MOUTH EVERY DAY Treatment Notes Assessment Notes History of hematuria has been evaluated in past Annual physical exam labs reviewed and d iscussed with patient Pure hypercholesterolemia stable, will c ontinue current regiment Essential hypertension doing well. will continue current regiment Atherosclerosis of aorta will continue t o monitor Skin lesion of back difficult to evaluat e has been scratching. will recheck at next visit Active asthma stable, will continu e current regiment Colon cancer screening guaiac negative Depression screening negative screen Next Appt Details Follow Up: 6 Months, Reason: Provider Name:Willie gonzales, 04/26/2024 09:00:00 AM, [address] [place] [address], [address], [phone], Provider Name:Willie gonzales, 10/23/2024 07:00:00 AM, [address] [place] [address], [address], [phone], Provider Name:Willie gonzales, 10/30/2024 09:30:00 AM, [address] [place] [address], [address], [phone], Progress Notes * Examination Category Sub-Category Detail Notes General Examination GENERAL APPEARANCE: well dev eloped, well nourished, in no acute distress HEAD: normocephalic, atrau matic EYES: pupils equal, round, reactive to light and accommodation, sclera non- icteric EARS: normal THROAT: clear NECK/THYROID: neck supple, full ra nge of motion, no cervical lymphadenopathy, no bruits HEART: regular rate and rhy thm, S1, S2 normal, no murmurs LUNGS: clear to auscultatio n bilaterally ABDOMEN: soft, nontender, non distended, bowel sounds present, normal, no organomegaly , no masses palpable NEUROLOGIC: nonfocal, motor stre ngth normal upper and lower extremities, sensory exam intact SKIN: warm and dry, no tejas picious lesions, abnormal with a i/4 inch excoriated red lesion lower back EXTREMITIES: no clubbing, cyanosi s, or edema MALE GENITOURINARY: uncircumcised, teste s descended bilaterally, no testicular mass RECTAL EXAM: normal tone, no exte rnal hemorrhoids, no masses palpable, prostate normal, stool guaiac negative ORAL CAVITY: mucosa moist History and Physical Notes * HPI (History of Present Illness) Category Sub-Category Detail Notes Depression Screening PHQ-9 Little inte rest or pleasure in doing things: Not at all Feeling down, depressed, or hopeless: No t at all Trouble falling or staying asleep, or sl eeping too much: Not at all Feeling tired or having little energy: N ot at all Poor appetite or overeating: Not at all Feeling bad about yourself o r that you are a failure, or have let yourself or your family down: Not at all Trouble concentrating on thi ngs, such as reading the newspaper or watching television: Not at all Moving or speaking so slowly that other people could have noticed; or the opposite, being so fidgety or restless that you have been moving around a lot more than usual: Not at all Thoughts that you would be b shahid off or of hurting yourself in some way: Not at all Total Score: 0 Interpretation and Intervention Depression Tona vizcaino Findings: Negative Follow-Up for Depression: : review of PH Q-9 found negative result, no follow-up needed SDOH Questions SDOH Questions In the past year have you been worried about losing housing?: No In the past year have you or any family members you live with been unable to get any of the following when it was really needed? Check all that apply:: None Fall Risk History Have you had any falls with injury in the past year?: No Have you had two or more falls in the year?: No Communication Needs Communication Needs Does the patient have a hearing impairment: No Does the patient have a vision impairmen t?: Yes ?If yes, what is the vision impairment?: Glasses Does the patient have a cognition impair ment?: No
--- OUTSIDE RECORDS SUMMARY | 2024-02-08 22:05 | XMS_ITS ---
Author Organization Willie Palomino MD Address [address] [place], [place] [phone] Care Team Providers Care Campus Security Director Name Role Phone Willie Palomino Primary Care Provider RESULTS Component Value Reference Range Notes Liver Panel Reviewed date:01/23/2024 12:36:11 PM Interpretation: Performing Lab:[facility], [address] [place] [phone] Notes/Report: Bilirubin Total 0.3 0.0-1.0 mg/dL Bilirubin Direct 0.1 0.0-0.5 mg/dL Aspartate Amino Transferase 36 5-37 U/L Alanine Aminotransferase 34 0-40 U/L Total Protein 6.6 6.5-8.0 g/dL Albumin Level 4.2 3.5-5.0 g/dL Alkaline Phosphatase 41 39-117 U/L Lipid Panel with Reflex Reviewed date:01/23/2024 12:36:21 PM Interpretation: Performing Lab:[facility], [address] [place] [phone] Notes/Report: Triglycerides 138 <150 mg/dL Desirable Triglyceride: less than 150 mg/dL Borderline High Triglyceride 150-199 mg/dL High Triglyceride: 200-499 mg/dL Very High Triglyceride: greater than or equal to 5OO mg/dL Cholesterol 136 <200 mg/dL Desirable Cholesterol: less than 200 mg/dL Borderline High Cholesterol: 200-239 mg/dL High Cholesterol: greater than 239 mg/dL LDL Cholesterol Calculated 71 <100 mg/dL Desirable LDL: less than 100 mg/dL Near Optimal/Above Optimal LDL: 110-129 mg/dL Borderline High LDL: 130-159 mg/dL High LDL: 160-189 mg/dL Very High LDL: greater than or equal to 190 mg/dL HDL Cholesterol 38 >40 mg/dL Desirable HDL: greater than 40 mg/dL Note: This HDL assay may give artificially low results in patients with liver disease. REASON FOR VISIT fasting lipids and liver MEDICATIONS Medication SIG (Take, Route, Frequency, Duration) Notes Start Date End Date Status Valsartan-hydroCHLOROthiazi de 160-12.5 MG TAKE ONE TABLET BY MOUTH EVERY DAY Active Albuterol Sulfate HFA 108 (90 Base) MCG/ACT 1 puff as needed Inhalation every 4 hrs 02/08/2023 Active Rosuvastatin Calcium 5 MG take one table t by mouth every evening Orally Once a day for 90 days Active Colchicine 0.6 MG 1 tablet Orally twic e a day for 10 days 01/24/2017 Not-Taking ZyrTEC Allergy 10 MG 1 tablet Orally Onc e a day for 30 day(s) Not-Taking Cyclobenzaprine HCl 5 MG 1 or 2tablet at bedtime as needed Orally twice a day for 10 days 08/04/2021 Not-Taking Albuterol Sulfate HFA 108 (90 Base) MCG/ACT 1 puff as needed Inhalation every 4 hrs Not-Taking Indomethacin 50 MG take one capsule(s) three times a day with food Orally Three times a day for 10 days Active Ibuprofen 200 MG 1 tablet with food o r milk as needed Orally Three times a day Not-Taking Encounters Encounter Location Date Provider Diagnosis Willie Palomino MD [address] [place] [phone] 01/23/2024 Willie Palomino Pure hypercholestero lemia E78.00 ASSESSMENTS Encounter Date Diagnosis Assessment Notes Treatment Notes Treatment Clinical Notes 01/23/2024 Pure hypercholestero lemia (ICD-10 - E78.00) PLAN OF TREATMENT Next Appt Details Provider Name:Willie gonzales, 04/26/2024 09:00:00 AM, [address] [place] [address], [address], [place], [phone], Provider Name:Willie gonzales, 10/23/2024 07:00:00 AM, [address] [place] [address], [address], [place], [phone], Provider Name:Willie gonzales, 10/30/2024 09:30:00 AM, [address] [place] [address], [address], [place], [phone],
--- OUTSIDE RECORDS SUMMARY | 2024-02-08 22:06 | XMS_ITS ---
Author Organization [facility] Address [address] [place] [address] Care Team Providers Care Life Scientists Name Role Phone Willie Palomino MD Primary Care Provider Cleve Lechuga Jr [phone] REASON FOR VISIT change in bowel movement Encounters Encounter Location Date Provider Diagnosis [facility] [place] [address] [place] [phone] 12/27/2023 Cleve Rincon Jr Colon cancer screening Z12.11 and Colon polyps K63.5 ASSESSMENTS Encounter Date Diagnosis Assessment Notes Treatment Notes Treatment Clinical Notes 12/27/2023 Colon cancer screening (ICD-10 - Z12.11) 12/27/2023 Colon polyps (ICD-10 - K63.5) PLAN OF TREATMENT No Information
--- OUTSIDE RECORDS SUMMARY | 2024-02-08 22:06 | XMS_ITS ---
Author Organization [facility] Address [address] [place] [phone] Care Team Providers Care Wind Development Director Name Role Phone Willie Palomino MD Primary Care Provider Harshal Rincon Jr, Cleve Akins [phone] REASON FOR VISIT change in bowel movement Encounters Encounter Location Date Provider Diagnosis [facility] Outpatient [address] [place] [phone] 11/29/2023 Cleve Rincon Jr PLAN OF TREATMENT No Information
--- OUTSIDE RECORDS SUMMARY | 2024-02-08 22:06 | XMS_ITS | Patient Health Record ---
Author Organization Willie Palomino MD Address [address] [place], [place] [id number] Care Team Providers Care Information Systems Consultant Name Role Phone Willie Palomino Primary Care Provider ALLERGIES No Known Allergies RESULTS Component Value Reference Range Notes Liver Panel Reviewed date:04/21/2023 10:27:48 AM Interpretation:see back 04-21-23 Performing Lab:[facility], [address] [place] [phone] Notes/Report: Bilirubin Total 0.4 0.0-1.0 mg/dL Bilirubin Direct 0.2 0.0-0.5 mg/dL Aspartate Amino Transferase 39 5-37 U/L Alanine Aminotransferase 60 0-40 U/L Total Protein 7.1 6.5-8.0 g/dL Albumin Level 4.4 3.5-5.0 g/dL Alkaline Phosphatase 45 39-117 U/L Lipid Panel with Reflex Reviewed date:04/15/2023 01:38:33 PM Interpretation: Performing Lab:[facility], [address] [place] [phone] Notes/Report: Triglycerides 123 <150 mg/dL Desirable Triglyceride: less than 150 mg/dL Borderline High Triglyceride 150-199 mg/dL High Triglyceride: 200-499 mg/dL Very High Triglyceride: greater than or equal to 5OO mg/dL Cholesterol 172 <200 mg/dL Desirable Cholesterol: less than 200 mg/dL Borderline High Cholesterol: 200-239 mg/dL High Cholesterol: greater than 239 mg/dL LDL Cholesterol Calculated 99 <100 mg/dL Desirable LDL: less than 100 mg/dL Near Optimal/Above Optimal LDL: 110-129 mg/dL Borderline High LDL: 130-159 mg/dL High LDL: 160-189 mg/dL Very High LDL: greater than or equal to 190 mg/dL HDL Cholesterol 49 >40 mg/dL Desirable HDL: greater than 40 mg/dL Note: This HDL assay may give artificially low results in patients with liver disease. CT foot LT wo con Reviewed date:06/07/2023 02:45:48 PM Interpretation: Performing Lab: Notes/Report: [address] [address] [address] Scan Report Signed Patient: Shar Villela MR#: [id number] : 1965 Acct:[id number] Age/Sex: 57 / M ADM Date: 06/01/23 Loc: HO.CT Attending Dr: Demetris Cooper PA-C Ordering Physician: Demetris Cooper PA-C Date of Service: 06/01/23 Procedure(s): CT foot LT wo IV con Accession Number(s): [id number] cc: Willie Palomino MD; Demetris Cooper PA-C EXAMINATION: CT FOOT WITHOUT CONTRAST, LEFT CLINICAL INFORMATION: Left foot strain. Pain. COMPARISON: Most recent left foot radiographs dated 02/25/2023. Left foot MRI dated 01/19/2017. TECHNIQUE: Contiguous axial CT images of the left foot were obtained without contrast. Multiplanar reformats were provided and reviewed. This CT examination was performed using dose optimization techniques as appropriate, variously including the following: *Automated exposure control *Adjustment of mA and/or kV according to patient size (this includes techniques or standardized protocols for targeted exams where dose is matched to indication/reason for exam; i.e. extremities or head) *Use of iterative reconstruction technique. DOSE: 118 mGy-cm. FINDINGS: No acute fracture or dislocation. Chronic-appearing fracture of the tibial hallux sesamoid, unchanged when compared to the prior MRI. The ankle mortise is maintained. Moderate joint space narrowing with subchondral cystic change and marginal osteophytes at the 1st metatarsophalangeal joint. No concerning lytic or blastic osseous lesion. No talar osteochondral lesion. No abnormal soft tissue mass or fluid collection. No significant joint effusion. The visualized muscles and tendons are grossly intact. Evaluation is somewhat limited on CT examination. CT/CT foot LT wo IV con IMPRESSION: 1. No acute fracture or dislocation. 2. Chronic fracture of the tibial hallux sesamoid, unchanged when compared to the prior MRI. 3. 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 Dictated By: Bruce Ruiz MD Signed By: <Electronically signed by Bruce Ruiz MD in OV> 06/06/23 1643 DD/ 0802 TD/TT: Undercoater: SR Castro Lovett Reviewed date:06/20/2023 12:46:38 PM Interpretation: Performing Lab:[address] [phone] Notes/Report: Castro Lovett See Note Specimen held untested for 24 hours; Call to request Chemistry testing. Liver Panel Reviewed date:06/20/2023 12:46:30 PM Interpretation: Performing Lab:[facility], [address] [place] [phone] Notes/Report: Bilirubin Total 0.3 0.0-1.0 mg/dL Bilirubin Direct 0.1 0.0-0.5 mg/dL Aspartate Amino Transferase 26 5-37 U/L Alanine Aminotransferase 35 0-40 U/L Total Protein 7.3 6.5-8.0 g/dL Albumin Level 4.4 3.5-5.0 g/dL Alkaline Phosphatase 45 39-117 U/L Lipid Panel with Reflex Reviewed date:06/20/2023 12:51:56 PM Interpretation: Performing Lab:[address] [phone] Notes/Report: Triglycerides 224 <150 mg/dL Desirable Triglyceride: less than 150 mg/dL Borderline High Triglyceride 150-199 mg/dL High Triglyceride: 200-499 mg/dL Very High Triglyceride: greater than or equal to 5OO mg/dL Cholesterol 222 <200 mg/dL Desirable Cholesterol: less than 200 mg/dL Borderline High Cholesterol: 200-239 mg/dL High Cholesterol: greater than 239 mg/dL LDL Cholesterol Calculated 137 <100 mg/dL Desirable LDL: less than 100 mg/dL Near Optimal/Above Optimal LDL: 110-129 mg/dL Borderline High LDL: 130-159 mg/dL High LDL: 160-189 mg/dL Very High LDL: greater than or equal to 190 mg/dL HDL Cholesterol 41 >40 mg/dL Desirable HDL: greater than 40 mg/dL Note: This HDL assay may give artificially low results in patients with liver disease. Liver Fibrosis Pnl Reviewed date:09/20/2023 12:32:41 PM Interpretation: Performing Lab:[facility], [address] [place] [phone] Notes/Report: Liver Fibrosis Score 0.30 Liver Fibrosis Stage F1 Liver Fibrosis Interpretation SEE NOTE minimal fibrosis Fibro Test Score (f) Metavir Score f>=0 and f<=0.21 : F0 (no fibrosis) f>0.21 and f<=0.27 : F0-F1 (no fibrosis) f>0.27 and f<=0.31 : F1 (minimal fibrosis) f>0.31 and f<=0.48 : F1-F2 (minimal fibrosis) f>0.48 and f<=0.58 : F2 (moderate fibrosis) f>0.58 and f<=0.72 : F3 (advanced fibrosis) f>0.72 and f<=0.74 : F3-F4 (advanced fibrosis) f>0.74 and f<=1.00 : F4 (severe fibrosis) Nec Inflam Act Score 0.09 Nec Inflam Act Grade A0 Nec Inflam Act Interpretation SEE NOTE no activity ActiTest Score (a) Metavir Score a>=0 and a<=0.17 : A0 (no activity) a>0.17 and a<=0.29 : A0-A1 (no activity) a>0.29 and a<=0.36 : A1 (minimal activity) a>0.36 and a<=0.52 : A1-A2 (minimal activity) a>0.52 and a<=0.60 : A2 (significant activity) a>0.60 and a<=0.62 : A2-A3 (significant activity) a>0.62 and a<=1.00 : A3 (severe activity) FXT-Yssbv-7-Macroglobulin 280 106-279 mg/dL FIB-Haptoglobin 99 43-212 mg/dL FIB-Apolipoprotein A1 150 94-176 mg/dL FIB-Total Bilirubin 0.3 0.2-1.2 mg/dL FIB-GGT 20 3-85 U/L FIB-ALT 22 9-46 U/L Reference ID [id number] Footnote SEE NOTE The reliability of results is dependent on compliance with the preanalytical and analytical conditions recommended by [employer]. The tests have to be deferred for: acute hemolysis, acute hepatitis, acute inflammation, extra hepatic cholestasis. The advice of a specialist should be sought for interpretation in chronic hemolysis and Gilbert's syndrome. The test interpretation is not validated in liver transplant patients. Isolated extreme values of one of the components should lead to caution in interpreting the results. In case of discordance between a biopsy result and a test, it is recommended to seek the advice of a specialist. The causes of these discordances could be due to a flaw of the test or to a flaw in the biopsy: i.e. a liver biopsy has a 33% variability rate for one fibrosis stage. FibroTest is interpretable for chronic hepatitis B and C, alcoholic and non alcoholic steatosis. ActiTest is interpretable for chronic hepatitis B and C. The performance characteristics have been determined by [facility]. It has not been cleared or approved by the U.S. Food and Drug Administration. Performance characteristics refer to the analytical performance of the test. [employer], the associated logo, [employer] and all associated [employer] evans are the registered trademarks of [employer]. All third republican evans - (R) and (TM) - are the property of their respective owners. (C) 0394-0679 [employer]. All rights reserved. THIS TEST WAS PERFORMED AT: [employer] [facility] [address] [place] [address] TANIKA HERRERA MD,PHD,TAMMY Complete Blood Count Auto Di ff Reviewed date:10/06/2023 04:24:23 PM Interpretation: Performing Lab:[facility], [address] [place] [phone] Notes/Report: White Blood Count 9.4 4.8-10.8 X10*3/uL Red Blood Count 4.97 4.60-5.80 X10*6/uL Hemoglobin 16.1 14.0-18.0 g/dl Hematocrit 46.8 42.0-52.0 % Mean Corpuscular Volume 94.2 80.0-98.0 fL Mean Corpuscular Hemoglobin 32.4 27.0-33.0 pg Mean Corpuscular HGB Conc 34.4 31.0-36.0 g/dl Red Cell Distribution Width 12.2 11.0-16.0 % Platelet Count 289 160-400 X10*3/uL Mean Platelet Volume 10.4 9.4-12.4 fL Neutrophils Percent Auto 48.6 45-73 % Imm Gran Pct Auto 0.3 0.0-0.4 % Lymphocytes Percent Auto 36.1 20-40 % Monocytes Percent Auto 10.9 2-11 % Eosinophils Percent Auto 3.2 0-4 % Basophils Percent Auto 0.9 0-2 % NRBC Pct Auto 0.0 0.0-0.2 /100WBC Neutrophils Absolute Auto 4.6 2.0-8.3 x10*3/u L Imm Gran Abs Auto 0.03 0.00-0.03 X10*3/uL Lymphocytes Absolute Auto 3.4 1.2-4.9 X10*3/u L Monocytes Absolute Auto 1.0 0.1-1.2 X10*3/uL Eosinophils Absolute Auto 0.3 0.0-0.4 X10*3/u L Basophils Absolute Auto 0.1 0.0-0.2 X10*3/uL NRBC Abs Auto 0.000 0.0-0.012 X10*3/uL Comprehensive [place]. Panel Fa st Reviewed date:10/06/2023 04:24:43 PM Interpretation: Performing Lab:[facility], [address] [place] [address] Notes/Report: Sodium 138 135-145 mmol/L Potassium 4.8 3.3-5.1 mmol/L Chloride 103 96-108 mmol/L Carbon Dioxide 28 22-29 mmol/L Anion Gap 12 12-20 Blood Urea Nitrogen 20 9-16 mg/dL Creatinine 0.96 0.5-1.4 mg/dL Estimated Glomerular Filt Rate > 60 NOTE: For -[place]auritan[place] individuals, multiply the result by 1.210. Chronic Kidney Disease: Estimated GFR < 60 mL/min/1.73m2 Severe Kidney Disease: Estimated GFR < 15 mL/min/1.73m2 Glucose Fasting 94 60-99 mg/dL Calcium 9.9 8.4-10.2 mg/dL Bilirubin Total 0.5 0.0-1.0 mg/dL Aspartate Amino Transferase 27 5-37 U/L Alanine Aminotransferase 27 0-40 U/L Total Protein 7.3 6.5-8.0 g/dL Albumin Level 4.5 3.5-5.0 g/dL Alkaline Phosphatase 43 39-117 U/L Liver Panel Reviewed date:10/06/2023 11:56:42 AM Interpretation: Performing Lab:[facility], [address] [place] [phone] Notes/Report: Bilirubin Direct 0.1 0.0-0.5 mg/dL Lipid Panel Reviewed date:10/06/2023 11:56:57 AM Interpretation: Performing Lab:[facility], [address] [place] [phone] Notes/Report: Triglycerides 171 <150 mg/dL Desirable Triglyceride: less than 150 mg/dL Borderline High Triglyceride 150-199 mg/dL High Triglyceride: 200-499 mg/dL Very High Triglyceride: greater than or equal to 5OO mg/dL Cholesterol 228 <200 mg/dL Desirable Cholesterol: less than 200 mg/dL Borderline High Cholesterol: 200-239 mg/dL High Cholesterol: greater than 239 mg/dL LDL Cholesterol Calculated 145 <100 mg/dL Desirable LDL: less than 100 mg/dL Near Optimal/Above Optimal LDL: 110-129 mg/dL Borderline High LDL: 130-159 mg/dL High LDL: 160-189 mg/dL Very High LDL: greater than or equal to 190 mg/dL HDL Cholesterol 49 >40 mg/dL Desirable HDL: greater than 40 mg/dL Note: This HDL assay may give artificially low results in patients with liver disease. PSA,Total (Free>4and<10) Reviewed date:10/06/2023 11:58:25 AM Interpretation: Performing Lab:[facility], [address] [place] [phone] Notes/Report: PSA,Total (Free>4and<10) 0.65 0.00-4.00 ng/mL A Free PSA was not performed: The percentage of Free PSA can be used to enhance the differentiation of prostate cancer from benign prostatic disease in subjects whose PSA levels are between 4.0 and 10.0 ng/mL. For subjects whose PSA levels are below 4.0 or above 10.0 ng/mL, the risk of prostate cancer is determined on the basis of the PSA alone. Therefore the % Free PSA is recommended only for those subjects whose PSA levels are between 4.0 and 10.0 ng/mL. PSA methodology: Emery Alinity i Chemiluminescent Microparticle Immunoassay (CMIA) UA ClnCatch+Micro w/rflx Cul t Reviewed date:10/08/2023 09:00:16 AM Interpretation: Performing Lab:[facility], [address] [place] [phone] Notes/Report: Urine, Clean Catch Color Urine Yellow Appearance Urine Clear PH 6.5 5.0-9.0 Glucose Urine UA Negative Negative mg/dL Urine Blood Moderate (2+) Negative Specific [place] - Urine 1.020 1.005-1.025 Urine Protein Negative Neg-Trace mg/dL Urine Ketones Negative Negative mg/dL Nitrite Urine Negative Negative Leukocyte Esterase Urine Negative Negative RBC Urine 11-20 0-2 /HPF WBC Urine 0-5 0-5 /HPF Squamous Epithelial Cell Urine 0-2 0-2 /HPF Bacteria Urine None Seen None Seen Hyaline Casts Urine 0-2 0-2 /LPF Occult Blood, Stool, Guaiac Reviewed date:10/25/2023 02:01:28 PM Interpretation:Negative Performing Lab: Notes/Report: Negative Occult Blood, Stool, Guaiac Neg Pathology Reviewed date:12/29/2023 04:59:15 PM Interpretation: Performing Lab:[facility], [address] [place] [phone] Notes/Report: Liver Panel Reviewed date:01/23/2024 12:36:11 PM Interpretation: Performing Lab:[facility], [address] [place] [phone] Notes/Report: Bilirubin Total 0.3 0.0-1.0 mg/dL Bilirubin Direct 0.1 0.0-0.5 mg/dL Aspartate Amino Transferase 36 5-37 U/L Alanine Aminotransferase 34 0-40 U/L Total Protein 6.6 6.5-8.0 g/dL Albumin Level 4.2 3.5-5.0 g/dL Alkaline Phosphatase 41 39-117 U/L Lipid Panel with Reflex Reviewed date:01/23/2024 12:36:21 PM Interpretation: Performing Lab:[address] [phone] Notes/Report: Triglycerides 138 <150 mg/dL Desirable Triglyceride: [...] low results in patients with liver disease. Uric Acid Reviewed date:02/07/2024 03:16:03 PM Interpretation: Performing Lab:[address] [phone] Notes/Report: Uric Acid 9.2 3.4-7.0 mg/dL REASON FOR REFERRAL Reason strain of left foot Diagnosis 1 Strain of left foot, subsequent encounter (S96.912D) Referral Organization Willie Palomino MD Referring Provider First Name Willie Referring Provider Last Name Candelario [facility] Referred Provider Fam Jamil Referred Provider Specialty Orthopedic S urgery Referral Priority Routine Referral Appointment Date 02/25/2023 Reason BOJORQUEZ ins referral ne eded Diagnosis 1 BOJORQUEZ (nonalcoholic s teatohepatitis) (K75.81) Referral Organization Willie Palomino MD Referring Provider First Name Willie Referring Provider Last Name Candelario Referring Provider Speciality Internal edicine Referred Provider Cleve Vincent Referred Provider Specialty Gastroentero logy General Notes Daly Salinas 08:11:52 AM EST > info faxed , Daly Salinas 05/13/2023 10:01:53 AM EDT > referral info and copy on ins referral mailed to patient Referral Priority Routine Referral Appointment Date 08/31/2023 MEDICATIONS Medication SIG (Take, Route, Frequency, Duration) Notes Start Date End Date Status predniSONE 20 MG 2 tablets Orally Onc [...] as needed Inhalation every 4 hrs Not-Taking Colchicine 0.6 MG 1 tablet Orally twic [...] needed Inhalation every 4 hrs 02/08/2023 Active IMMUNIZATIONS Vaccine Route Administration Date Status Comme nts Flu Vaccine IM Intramuscular 01/19/2011 Administered Flu Vaccine IM Intramuscular 11/04/2011 Administered TDaP Unknown 03/06/2012 Administered Hepatitis A (adult) Unknown 04/03/2012 Administered Flu Vaccine IM Intramuscular 11/07/2012 Administered Flu Vaccine Unknown 11/12/2013 Administered [facility] Fluarix Quadrivalent IM Intramuscular 12/23/2016 Administered Fluarix Quadrivalent IM Intramuscular 02/06/2018 Administered Fluarix Quadrivalent IM Intramuscular 12/26/2018 Administered Tetanus Unknown 03/06/2012 Administered Fluarix Quadrivalent IM Intramuscular 11/21/2019 Administered Shingrix Unknown 08/03/2020 Administered [employer] [place] p SARS-COV-2 Pfizer Unknown 06/10/2020 Administered SARS-COV-2 Pfizer Unknown 07/11/2020 Administered SARS-COV-2 Moderna Unknown 01/29/2021 Administered SARS-COV-2 Pfizer Unknown 06/19/2021 Administered Fluarix Quadrivalent IM Intramuscular 11/27/2021 Administered Tetanus Unknown 03/06/2012 Pending SOCIAL HISTORY Tobacco Use: Social History Observation [...] ast year? 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) Active confirmed Disorder of right patellofemoral joint (993292819578467 ) Problem Essential hypertensi on (I10) Active confirmed 71370682 Problem History of hematuria (Z87.448) Active confirmed 495080696 Problem BOJORQUEZ (nonalcoholic steatohepatitis) (K75.81) Active confirmed BOJORQUEZ - Nonalcoholic steatohepatitis (684156422) Problem Acute idiopathic gou t involving toe of left foot (M10.072) Active confirmed 95162910 Problem Pure hypercholesterolemia (E78.00) Active confirmed 433039912 Problem Active asthma (J45.909) Active confirmed 349079487 VITAL SIGNS Blood pressure diastolic 72 mm Hg 02/07/2024 erickson ght is up 4 pounds since 10-25-23 Height 70.5 in 02/07/2024 weight is up 4 pounds since 10-25-23 Blood pressure systolic 138 mm Hg 02/07/2024 weig ht is up 4 pounds since 10-25-23 Weight 225 lbs 02/07/2024 weight is up 4 pounds since 10-25-23 BMI 31.82 kg/m2 02/07/2024 weight is up 4 pounds since 8-27-24 Encounters Encounter Location Date Provider Diagnosis Willie Palomino MD [address] [place] [id number] 10/25/2023 Willie Palomino History of hematuria Z87.448 ; Annual physical exam Z00.00 ; Pure hypercholesterolemia E78.00 ; Essential hypertension I10 ; Atherosclerosis of aorta I70.0 ; Skin lesion of back L98.9 ; Active asthma J45.909 ; Colon cancer screening Z12.11 and Depression screening Z13.31 Willie Palomino MD [address] [place] [id number] 04/21/2023 Willie Palomino BOJORQUEZ (nonalcoholic steatohepatitis) K75.81 ; Essential hypertension I10 ; Elevated LFTs R79.89 and Ankle pain, unspecified chronicity, unspecified laterality M25.579 Willie Palomino MD [address] [id number] 02/07/2024 Willie Palomino Acute idiopathic gou t involving toe of left foot M10.072 Willie Palomino MD [address] [place] [id number] 04/15/2023 Willie Palomino Pure hypercholestero lemia E78.00 Willie Palomino MD [address] [place] [id number] 10/06/2023 Willie Palomino History of hematuria Z87.448 ; Pure hypercholesterolemia E78.00 ; BOJORQUEZ (nonalcoholic steatohepatitis) K75.81 ; Essential hypertension I10 and Annual physical exam Z00.00 Willie Palomino MD [address] [id number] 06/20/2023 Willie Palomino Pure hypercholestero lemia E78.00 Willie Palomino MD [address] [place] [id number] 01/23/2024 Willie Palomino Pure hypercholestero lemia E78.00 Willie Palomino MD [address] [place] [id number] 02/08/2023 Willie Palomino Strain of left foot, subsequent encounter S96.912D and Active asthma J45.909 Willie Palomino MD [address] [place] [id number] 06/23/2023 Willie Palomino Pure hypercholestero lemia E78.00 ; Elevated LFTs R79.89 and History of gout Z87.39 Willie Palomino MD [address] [place] [id number] 02/14/2023 Willie Palomino MD [address] [place] [id number] 04/21/2023 Willie Palomino MD [address] [place] [id number] 07/14/2023 Willie Palomino ASSESSMENTS Encounter Date Diagnosis Assessment Notes Treatment Notes Treatment Clinical Notes 10/25/2023 Annual physical exam (ICD-10 - Z00.00) labs reviewed and discussed with patient 10/25/2023 History of hematuria (ICD-10 - Z87.448) has been evaluated in past 04/21/2023 Essential hypertensi on (ICD-10 - I10) patient verbalized understaning of medication 04/21/2023 BOJORQUEZ (nonalcoholic steatohepatitis) (ICD-10 - K75.81) refer to dr vincent 02/07/2024 Acute idiopathic gou t involving toe of left foot (ICD-10 - M10.072) patient verbalized understanding of medication and directions for use 04/15/2023 Pure hypercholestero lemia (ICD-10 - E78.00) 10/06/2023 History of hematuria (ICD-10 - Z87.448) 10/06/2023 Pure hypercholestero lemia (ICD-10 - E78.00) 06/20/2023 Pure hypercholestero lemia (ICD-10 - E78.00) 01/23/2024 Pure hypercholestero lemia (ICD-10 - E78.00) 02/08/2023 Strain of left foot, subsequent encounter (ICD-10 - S96.912D) referral to [facility] 02/08/2023 Active asthma (ICD-1 0 - J45.909) Patient/Caregiver verbalizes understanding of medications side effects, interactions and warnings. 06/23/2023 Elevated LFTs (ICD-1 0 - R79.89) has returned to normal off statins. still may be related to obesity 06/23/2023 Pure hypercholestero lemia (ICD-10 - E78.00) not high enough to treat 10/25/2023 Pure hypercholestero lemia (ICD-10 - E78.00) stable, will continue current regiment 04/21/2023 Elevated LFTs (ICD-1 0 - R79.89) will stop statin and recheck in 2 months 10/06/2023 BOJORQUEZ (nonalcoholic steatohepatitis) (ICD-10 - K75.81) 06/23/2023 History of gout (ICD -10 - Z87.39) 10/25/2023 Essential hypertensi on (ICD-10 - I10) doing well. will continue current regiment 04/21/2023 Ankle pain, unspecif ied chronicity, unspecified laterality (ICD-10 - M25.579) slowly resolving, will contiue to monitor 10/06/2023 Essential hypertensi on (ICD-10 - I10) 10/25/2023 Atherosclerosis of a sal (ICD-10 - I70.0) will continue to monitor 10/06/2023 Annual physical exam (ICD-10 - Z00.00) 10/25/2023 Skin lesion of back (ICD-10 - L98.9) difficult to evaluate has been scratching. will recheck at next visit 10/25/2023 Active asthma (ICD-1 0 - J45.909) stable, will continue current regiment 10/25/2023 Colon cancer screeni ng (ICD-10 - Z12.11) guaiac negative 10/25/2023 Depression screening (ICD-10 - Z13.31) negative screen PLAN OF TREATMENT Pending Test Test Name Order Date Electrocardiogram (EKG) 07/21/2015 Electrocardiogram (EKG) 08/02/2016 EEG 04/10/2013 US abdomen mendoza w elastography 08/24/2021 US abdomen complete 08/13/2021 RT pulmonary function test 06/09/2020 Next Appt Details Provider Name:Willie gonzales, 04/26/2024 09:00:00 AM, [address] [place] [address], [address], [place], [place], [phone], Provider Name:Willie gonzales, 10/23/2024 07:00:00 AM, [address], [address], [place], [place], [phone], Provider Name:Willie Carrion Beni ier, 10/30/2024 09:30:00 AM, [address], [address], [place], [place], [phone], Insurance Providers Payer Name Payer Address Payer Phone Subscriber Number Group Number Insured Name Patient Relationship to Insured Coverage Start Date Coverage End Date [facility] [address] [place], [place] [phone] [id number] Shar Villela Self - patient is the insured MEDICAL (GENERAL) HISTORY Medical History History ICD Code hematuria worked up by dr curiel 2016 Hypercholesteremia Insomnia Torticollis, unspecified Colonoscopy 10/24/[address] Gilda conrad - repeat 10 yrs.12/27/23 colonoscopy pending path Diverticulitis of large inte rigo without perforation or abscess without bleeding M86.9 Osteomyelitis of toe of left foot Hx of Proteinuria R80.9 Surgical History Surgery Date(Month/Year) Vasectomy Early Arthoscopic Knee surgery Early & 1992 Cystoscopy 2005
--- OUTSIDE RECORDS SUMMARY | 2024-02-08 22:06 | XMS_ITS ---
Author Organization [facility] Address [address] [place] [phone] Care Team Providers Care Counselor Supervisor Name Role Phone Willie Palomino MD Primary Care Provider Harshal Rincon Jr, Cleve Akins REASON FOR VISIT pathology Encounters Encounter Location Date Provider Diagnosis [facility] [address] [place] [phone] 01/02/2024 Cleve Rincon Jr PLAN OF TREATMENT No Information
--- OUTSIDE RECORDS SUMMARY | 2024-02-08 22:07 | XMS_ITS | Data Portability ---
Author Organization [place] [facility] Sheyla Acosta AONE [place] Address [address] [place] [address] Care Team Providers Care Director Pharmacy Services Name Role Phone SOLO GUTIERREZ Primary Care Provider [phone] Assessment Encounter Date Assessment Date Assessment LastModified by Organization Details LastModified Time 01/11/2023 01/11/2023 Shar has multifactorial knee pain. He does have degenerative changes under the patella with lateral tracking and patellar tendinitis. Aggravate alleviating factors were discussed. He was eager to proceed with a trial of physical therapy. He will follow-up in 1 month to assess his progress, sooner for any complications. All questions answered to his satisfaction. [email or web address] Not available 01/11/2023 09:48:32 Plan of Treatment Reminders Order Date Submit Date Provider Last Modified By Organization Details Last Modified Time Details Appointments None recorded. Lab None recorded. Referral physical therapist referral - Frequency: 2 visits per week for 6 weeksTherap y: Evaluate and TreatModali ties:As neededPreca utions - if any:Goals: ROM, HEP, Decrease Pain, patella stabilizati on, increase Strength, stability and Endurance. 2022 023 [email or web address] Not available 3 10:17:03 Procedures None recorded. Surgeries None recorded. Imaging XR, knee, 3 view 2022 [facility]23 [facility], [address], [place], [address], 3 11:08:04 Medication Orders None recorded. Patient TargetsNo targets recorded. Patient Instructions Encounter Date Encounter Id Patient Instructions Last Modified By Organization Details Last Modified Time 01/11/2023 [id number] patellar trackin g disorder: exercises [email or web address] Not available 01/11/2023 09:47:44 Radiographs: 3 views of the {{Left Right*}} knee were obtained in the {{[place] [place]} } office including AP, lateral (weightbearing), and sunrise. X-rays demonstrated {{normal* mildly decreased}} bony mineralization. Joint spaces {{well-maintained* decrease medially decreased Laterally decrease d patellafemoral dec reased all compartments decre ased in the patellofemoral and medially decrease in the patellofemoral and laterally}}. Laterally positioned patella. No evidence of acute injury or fracture. Findings: No evidence of acute injury or fracture. Lateral patellar tracking X-ray interpretation by: Yosef Delgado PA-C [email or web address] Not available 01/11/2023 09:52:45 Reason for Referral Physical Therapist Referral for Patellofemoral syndrome of right knee Frequency: 2 visits per week for 6 weeksTherapy: Evaluate and TreatModalities:As neededPrecautions - if any:Goals: ROM, HEP, Decrease Pain, patella stabilization, increase Strength, stability and Endurance. Referring Physician: Yosef Delgado, Orthopedic Surgery, Encounter Date: 01/11/2023 Problems Name Problem SNOMED Code Status Onset Date Resolution Date Notes Provider Name and Address Organization Details Recorded Time Patellofemo ral syndrome of right knee 7201418069097 103 Active [address], [place], [address], [place] [facility] 3 09:46:13 Tendinitis of right patellar tendon 9428371215066 09 Active 2022 YOSEF DELGADO PA-C [address], [place], [address], [place] [facility] 3 09:46:34 Problem Notes None recorded. Procedures Surgical History Date Name Laterality Status Provider Name and Address Organization Details Recorded Time Knee arthroscopy /surgery completed Katheryn Cabrera [place] [facility] 01/11/2023 09:21:04 Imaging Results None recorded. Procedure Notes None recorded. Medical Equipment None Reported. Allergies Allergen ID Allergen Name Allergen Category Reaction Reaction Severity Criticality Documentation Date Start Date Code Code System Note Provider Name and Address Organization Details Recorded Time 78709 mold extract environme nt Not available Not available Not available 01/11/2023 99789 8 RxNorm Katheryn Cabrera null, [facility] 3 09:18:04 77379 house dust allergeni c extract environme nt,medica tion Not available Not available Not available 01/11/2023 48123 9 RxNorm Katheryn Cabrera null, [facility], P 3 09:18:10 62808 tree and shrub pollen environme nt,medica tion Not available Not available Not available 01/11/2023 Katheryn Cabrera [facility], [facility], [facility] 3 09:18:31 Medications Name Sig Start Date Stop Date Status Note LastModified by Organization Details LastModified Time methylpredn isolone 4 mg tablets in a dose pack TAKE SIX TABLETS FOR 1 DAY, THEN FIVE TABLETS FOR 1 DAY, THEN FOUR TABLETS FOR 1 DAY,THEN THREE TABLETS FOR 1 DAY, THEN TWO TABLETS FOR 1 DA 01/11 completed Not Available Not Available Not Available rosuvastati n 5 mg tablet TAKE ONE TABLET BY MOUTH EVERY EVENING active Not Available Not Available No t Available ibuprofen active Not Available Not Katie ilable Not Available Tylenol active Not Available Not Avail able Not Available naloxone 4 mg/actuatio n nasal spray ADMINISTE R 1 SPRAY INTO ONE NOSTRIL. CALL 911. REPEAT AFTER 2-3 MIN IF NO OR MINIMAL RESPONSE 01/11 completed Not Available Not Available Not Available BinaxNOW COVID-19 Ag Self Test kit FOLLOW PACKAGE DIRECTION S 01/11 completed Not Available Not Available Not Available Vitals Date Recorded Body height Body mass index (BMI) Body weight Provider Name and Address Organization Details Last Updated DateTime 01/11/2023 180.34 cm 31.4 kg/m2 679750.28 g Katheryn Cabrera [facility], [facility] 01/11/2023 09:19:10 Social History Question Answer Notes LastModified by Organizat ion Details LastModified Time Tobacco Smoking Status Never Smoker Katheryn Beckfordlivan null, [place] [facility] 01/11/2023 09:19:24 What Is Your Level Of Alcohol Consumption? None [email or web address] Information not available 01/11/2023 Do You Use Any Illicit Or Recreational Drugs? No [email or web address] Information not available 01/11/2023 Do You Or Have You Ever Used Any Other Forms Of Tobacco Or Nicotine? No [email or web address] Information not available 01/11/2023 Sex: Unknown Functional Status None recorded. Mental Status None recorded. Family History Relationship Description Onset Age of this Age Resolved Age Notes LastModified by Organization Details LastModified Time Father Family history of malignant neoplasm [email or web address] Not available 12/29 09:19:56 Father Heart disease [email or web address] Not available 12/29 09:20:21 Father Hyperlipidem ia [email or web address] Not available 12/29 09:20:37 Father Hypertensive disorder [email or web address] Not available 12/29 09:20:51 Mother Diabetes mellitus [email or web address] Not available 12/29 09:20:10 Mother Hyperlipidem ia [email or web address] Not available 12/29 09:20:36 Mother Hypertensive disorder [email or web address] Not available 12/29 09:20:51 Medical History Condition Response Gout Y Past Encounters Encounter ID Performer Location Encounter Start Date Encounter Closed Date Diagnosis/Indication Diagnosis SNOMED-CT Code Diagnosis ICD10 Code [id number] Tushar Terrell MD [facility] [address] [place] [phone] 01/11/2023 08:40:55 01/11/2023 09:50:44 Pain of right knee joint 7857846285 59465 M25.561 Patellofem oral syndrome of right knee 4251535342 411958 M22.2X1 Tendinitis of right patellar tendon 3898046713 11451 M76.51 Health Concerns Section Related Observation LastModified by Organization Detai ls LastModified Time None Recorded Concern Status LastModified by Organization Details LastModified Time None Recorded Advance Directives Directive None Recorded Payers Encounter Date Sequence Insurance Name Policy Number Policy Banegas Covered Member ID Banegas Member ID Guarantor Name 01/11/2023 1 *SELF PAY* Th daija Villela Notes Date Note Type Note Provider Name and Address Organization Details Recorded Time 01/11/2023 text/html Patient is a 57-year-old male who presents today with right knee pain. He woke on Tuesday night with pain in his knee. He felt his knee was somewhat locked. He was able to bend his knee, but had pain and swelling. He has been icing his knee and has noted some improvement. He tried using a knee brace for stability. He had made some improvement, but the end of his workday yesterday, pain was much worse. He is now using crutches for comfort and protection. 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 He has intermittent pain in his knees. He admits recently he has decreased his activity due to an ankle problem and thinks he may have contributed to some weakening and more lateral tracking. No numbness or tingling. YOSEF DELGADO PA-C [address], [place], [address], [place] [facility] 01/11/2023 09:53:03
--- OUTSIDE RECORDS SUMMARY | 2024-02-08 22:07 | XMS_ITS | Patient Health Record ---
Author Organization [facility] Address [address] [place] [address] Care Team Providers Care Ground Crew Chief Name Role Phone Candelario PARMAR, Willie Primary Care Provider Harshal Rincon Jr, Cleve Unavailable ALLERGIES Allergen (clinical drug ingredient) Drug/Non Drug Allergy documented on EMR Reaction Allergy Type Onset Date Status hay fever,pollen, du st mold (uncoded) Unknown Allergy Active RESULTS Component Value Reference Range Notes Liver Fibrosis Pnl Reviewed date:09/20/2023 02:53:17 PM Interpretation: Performing Lab:[facility], [address] [place] [phone] Notes/Report: Liver Fibrosis Score 0.30 Liver Fibrosis [...] a>0.62 and a<=1.00 : A3 (severe activity) AOE-Etoaq-2-Macroglobulin 280 106-279 mg/dL FIB-Haptoglobin 99 43-212 mg/dL FIB-Apolipoprotein A1 150 94-176 mg/dL FIB-Total Bilirubin 0.3 0.2-1.2 mg/dL FIB-GGT 20 3-85 U/L FIB-ALT 22 9-46 U/L Reference ID [id number] Footnote SEE NOTE The reliability of results is dependent on compliance with the preanalytical and analytical conditions recommended by [employer]. The tests have to be deferred for: [...] The performance characteristics have been determined by [facility]. It has not been cleared or approved by the U.S. Food and Drug Administration. Performance characteristics refer to the analytical performance of the test. 2,10E+07, the associated logo, The [employer] and all associated [employer] evans are the registered trademarks of [employer]. All third green party evans - (R) and (TM) - are the property of their respective owners. (C) 9090-1158 [employer]. All rights reserved. THIS TEST WAS PERFORMED AT: [email or web address] [address] [place] [address] TANIKA HERRERA MD,PHD,TAMMY Pathology Reviewed date:01/02/2024 09:05:57 AM Interpretation: Performing Lab:[facility], [address] [place] [phone] Notes/Report: REASON FOR REFERRAL Referring Provider First Name Willie Referring Provider Last Name Candelario Referring Provider Speciality Internal M edicine Referred Organization [facility] Referred Provider Cleve Rincon Jr Referred Address [address] [place] [address],[place] [address],[place], [place],[address], Referred Provider Specialty Gastroentero logy Referral Priority Routine MEDICATIONS Medication SIG (Take, Route, Frequency, Duration) Notes Start Date End Date Status MiraLax (colon prep) 17 GM/SCOOP mixed with Gatorade or Crystal Light Orally begin at 5:00 p.m. the day before the procedure for 1 day 08/31/2023 Active Melatonin prn Active Indomethacin prn gout Active Valsartan-hydroCHLOROthiazi de 160-12.5 MG TAKE ONE TABLET BY MOUTH EVERY DAY Oral for 30 Active IMMUNIZATIONS Vaccine Route Administration Date Status Comme nts Influenza Unknown 12/21/2022 Administered SOCIAL HISTORY Sex Assigned At : Social History Observation Description Sex Assigned At Unknown PROBLEMS Problem Type ICD Code Onset Dates Problem Status W/U Status Risk SNOMED Code Notes Problem Abnormal findings in stool (R19.5) Active confirmed 524416125 Problem Blood in stool (K92.1) Active confirmed 826439664 Problem BOJORQUEZ (nonalcoholic steatohepatitis ) (K75.81) Active confirmed 039088969 Problem Colon cancer screening (Z12.11) Active confirmed 189577011 Problem Change in bowel movement (R19.8) Active confirmed 09696719 VITAL SIGNS Temperature 97.8 degrees Fahrenheit 08/31/2023 Blood pressure diastolic 00 mm Hg 08/31/2023 Height 71 in 08/31/2023 Blood pressure systolic 000 mm Hg 08/31/2023 Weight 221 lbs 08/31/2023 BMI 30.82 kg/m2 08/31/2023 Encounters Encounter Location Date Provider [place] [facility] [place] [address] [id number] 11/29/2023 Cleve Rincon Jr [facility] [place] [address] [place] [id number] 12/27/2023 Cleve Rincon Jr Colon cancer screening Z12.11 and Colon polyps K63.5 [facility] [address] [place] [phone] 08/31/2023 Cleve Rincon Jr BOJORQUEZ (nonalcoholic steatohepatitis) K75.81 and Change in bowel movement R19.8 [facility] [address] [place] [phone] 09/20/2023 Cleve Rincon Jr [facility] [address] [place] [phone] 11/28/2023 Cleve Rincon Jr [facility] [address] [place] [phone] 01/02/2024 Cleve Rincon Jr ASSESSMENTS Encounter Date Diagnosis Assessment Notes Treatment Notes Treatment Clinical Notes 12/27/2023 Colon cancer screening (ICD-10 - Z12.11) 12/27/2023 Colon polyps (ICD-10 - K63.5) 08/31/2023 Change in bowel movement (ICD-10 - R19.8) 08/31/2023 BOJORQUEZ (nonalcoholic steatohepatitis) (ICD-10 - K75.81) PLAN OF TREATMENT Pending Test Test Name Order Date Liver Fibrosis Pnl 08/31/2023 Future Test Test Name Order Date COLONOSCOPY 08/15/2015 COLONOSCOPY 08/31/2023 Insurance Providers Payer Name Payer Address Payer Phone Subscriber Number Group Number Insured Name Patient Relationship to Insured Coverage Start Date Coverage End Date [facility] [employer] CLAIM[employer] [address] [place] [address] [id number] MIKE READ Self - patient is the insured MEDICAL (GENERAL) HISTORY Medical History History ICD Code Gout Microscopic hematuria Colonoscopy 10/13, normal, ten-year follo wup Surgical History Surgery Date(Month/Year) arthroscopy to right knee
--- OUTSIDE RECORDS SUMMARY | 2024-02-08 22:07 | XMS_ITS ---
Author Name [facility] Organization Unknown History of Medication Use Medication Directions Dispensed Refills Start Date End Date Stat us naloxone 4 mg/actuation nasal spray ADMINISTER 1 SPRAY INTO ONE NOSTRIL. CALL 911. REPEAT AFTER 2-3 MIN IF NO OR MINIMAL RESPONSE 01/13/2023 completed rosuvastatin 5 mg tablet TAKE ONE TABLET BY MOUTH EVERY EVENING 01/13/2023 active BinaxNOW COVID-19 Ag Self Test kit FOLLOW PACKAGE DIRECTIONS 01/13/2023 completed Allergies Allergen Reaction Severity Comment Documented Date Source Statu s HOUSE DUST ENS_AONECT MOLD ENS_AONECT Problems Problem Status Onset Date Problem Type Date of Resoluti on Source Patellofemoral syndrome of right knee active 2023-01-11 ProblemAct ENS_AONECT Tendonitis of right patellar tendon active 2023-01-11 ProblemAct ENS_AONECT
== END 2024-02-07 14:28 | disposition home or self-care (01) ==
LOC: HO.LNP 14:27
PROVIDERS: Visit Provider Internal Medicine
DX: M10.072 Idiopathic gout, left ankle and foot (principal)
CPT/HCPCS: 84550

== ENCOUNTER 2024-04-24 11:55 | Outpatient (REF) | payer OTHER, SELFPAY ==
[2024-04-24 12:56] LABS: Cholesterol 144 mg/dL (<200); HDL Cholesterol 44 mg/dL (>40); LDL Cholesterol Calculated 67 mg/dL (<100); Triglycerides 166 mg/dL (<150)
[2024-04-24 13:42] LABS: Reflex LDLD? No
--- OUTSIDE RECORDS SUMMARY | 2024-04-24 14:36 | XMS_ITS | Clinical Summary ---
Author Organization [employer] Address [address] [facility] [address] [place] [address] Care Team Providers Care Dry Curer Name Role Phone PcpFlex Unassigned Primary Care Provider U navailable Allergies No known active allergies Medications rosuvastatin (Crestor) 10 MG tablet Take 10 mg by mouth in the morning. Active naloxone (Narcan) 4 mg/0.1 mL nasal spray ADMINISTER 1 SPRAY INTO ONE NOSTRIL. CALL 911. REPEAT AFTER 2-3 MIN IF NO OR MINIMAL RESPONSE Active Immunizations Name Administration Dates Next Due DT (pediatric) 03/06/2012 Influenza injectable quadriv alent preservative free 11/27/2021,12/30/2020 Influenza, seasonal, injecta ble, preservative free 11/21/2019,12/26/2018,02/06/2018,2016 Pfizer Covid-19 Vaccine 12+ 06/19/2021 Zoster, Recombinant 11/24/2020,08/03/2020 Social History Tobacco Use Types Packs/Day Years Used Date Smoking Tobacco: Never Smokeless Tobacco: Never Tobacco Cessation:Counseling Given: Not Answered Alcohol Use Standard Drinks/Week Comments Not Currently 0 (1 standard drink = 0.6 oz pur e alcohol) Sex and Gender Information Value Date Recorded Sex Assigned at Male 07/20/2022 2:40 PM EDT Legal Sex Male 2:39 PM EDT Gender Identity Male 07/20/2022 2:40 PM EDT Sexual Orientation Choose not to disclose 2022 2:40 PM EDT Last Filed Vital Signs Vital Sign Reading Time Taken Comments Blood Pressure - - Pulse - - Temperature - - Respiratory Rate - - Oxygen Saturation - - Inhaled Oxygen Concentration - - Weight 102 kg (225 lb) 11/23/2022 9:09 AM EDT Height 180.3 cm (5' 11 ) 11/23/2022 9:09 AM EDT Body Mass Index 31.38 11/23/2022 9:09 AM EDT Plan of Treatment Health Maintenance Due Date Last Done Comments CT Colonography 1966 Colonoscopy 1966 Colorectal Cancer Screening 1966 Depression Screening 1966 FIT DNA/Cologuard 1966 FIT 1966 FOBT 1966 HIV Screening 1966 Lipid Panel 1966 SDOH Screening 1966 Sigmoidoscopy 1966 Pneumococcal Vaccine: Pediatrics (0 to 5 Years) and At-Risk Patients (6 to 49) Years) (1 of 2 - PCV) 1972 Alcohol/Substance Use Screening 1978 Hepatitis C Screening 1984 DTaP/Tdap/Td Vaccines (1 - Tdap) 1985 Hepatitis B Vaccines (1 of 3 - 19+ 3-dose series) 1985 Pneumococcal Vaccine: 50+ Years (1 of 2 - PCV) 1985 COVID-19 Vaccine ( - season) 2023 06/19/2021, 01/29/2021, 07/02/2020, Additional history exists Influenza Vaccine (#1) 2023 , 12/30/2020, 11/21/2019, Additional history exists Tobacco Screening 11/24/2023 11/23/2022 RSV Patients and Patients Aged 60 years or older (1 - 1-dose 75+ series) 2041 Zoster Vaccines Completed 11/24/2020, 08/03/2020 HIB Vaccines Aged Out No longer eligi ble based on patient's age to complete this topic HPV Vaccines Aged Out No longer eligi ble based on patient's age to complete this topic Hepatitis A Vaccines Aged Out No long er eligible based on patient's age to complete this topic IPV Vaccines Aged Out No longer eligi ble based on patient's age to complete this topic Meningococcal Vaccine Aged Out No salazar anderson eligible based on patient's age to complete this topic RSV under 20 months Aged Out No longe r eligible based on patient's age to complete this topic Rotavirus Vaccines Aged Out No longer eligible based on patient's age to complete this topic Insurance HMO Care Teams Dry Curer Relationship Specialty Start Date End Date PcpFlex Unassigned PCP - General Family Medicine 07/21/22
--- OUTSIDE RECORDS SUMMARY | 2024-04-24 14:37 | XMS_ITS ---
Author Organization Willie Palomino MD Address [address] [place] [phone] Care Team Providers Care Housekeeping Department Worker Name Role Phone Willie Palomino Primary Care Provider [phone] Allergies No Known Allergies Results Component Value Reference Range Notes Uric Acid Reviewed date:02/07/2024 03:16:03 PM Interpretation: Performing Lab:[facility], [address] [place] [phone] Notes/Report: Uric Acid 9.2 3.4-7.0 mg/dL REASON FOR VISIT DISCOLORATION OF TOE left great toe x 2 weeks with gout Medications Medication SIG (Take, Route, Frequency, Duration) Notes [...] as needed Inhalation every 4 hrs Not-Taking Vital Signs Blood pressure systolic 138 mm Hg 02/07/20 24 Blood pressure diastolic 72 mm Hg 024 Height 70.5 in 02/07/2024 Weight 225 lbs 02/07/2024 BMI 31.82 kg/m2 02/07/2024 weight is up 4 pounds since 10-25-23 Encounters Encounter Location Date Provider Diagnosis Willie Palomino MD [address] [place] [phone] 02/07/2024 Willie Palomino Acute idiopathic gout involving toe of left foot M10.072 Assessments Encounter Date Diagnosis (ICD Code) Assessment Notes Treatment Notes Treatment Clinical Notes Section Notes 02/07/2024 Acute idiopathic gout involving toe of left foot (ICD-10 - M10.072) patient verbalized understanding of medication and directions for use Plan Of Treatment Medication Medication Name Sig Start Date Stop Date Notes predniSONE 20 MG 2 tablets Orally Once a day for 7 days Treatment Notes Assessment Notes Acute idiopathic gout involv ing toe of left foot patient verbalized understanding of medication and directions for use Next Appt Details Provider Name:Willie gonzales, 04/26/2024 09:00:00 AM, [address] [place] [address], [address], [phone], Provider Name:Willie gonzales, 10/23/2024 07:00:00 AM, [address] [place] [address], [phone], Provider Name:Willie gonzales, 10/30/2024 09:30:00 AM, [address] [place] [address], [phone], Progress Notes * Shar READDOB: 7 (58 yo M)Acc No.[id number]:02/07/2024 Patient:?Shar Read Provider:?Willie Palomino MD :1965???Age:58 Y???Sex:Male Davi e:02/07/2024 Address:[address] [place] [address], [id number] Subjective: * Chief Complaints: * ???DISCOLORATION OF TOE left great toe x 2 weeks with gout * HPI: ???Symptom(s):? patient is a 58 yo male here with complaint of left great toe pain and discoloration for 2 weeks of inflammation in toe. taking gout meds and it didn't help/ iced and voltaren and then restarted indomethicin. now still a little pain if he pushes on it. * ROS:?General/Constitutional:?Denies?Chills.?Denies?Fatigue.?Denies?Fever.?Denies?Headache.?ENT:?Patient denies?decreased sense of smell , any loss of taste , sore throat.?Denies?Sore throat.?Respiratory:?Admits?Cough.?Denies?Shortness of breath at rest.?Denies?Shortness of breath with exertion.?Admits?Sputum production.?Gastrointestinal:?Denies?Diarrhea.?Denies?Nausea.?Musculoskeletal:?Patient denies?muscle aches.?Peripheral Vascular:?Patient denies?red and blue toes.? * Medical History:? * Surgical History:? * Hospitalization/Major Diagno stic Procedure:? * Medications:?TakingIndometha siddhartha 50 MG Capsule take one capsule(s) three times a day with food Orally Three times a dayRosuvastatin Calcium 5 MG Tablet take one tablet by mouth every evening Orally Once a dayValsartan-hydroCHLOROthiazide 160-12.5 MG Tablet TAKE ONE TABLET BY MOUTH EVERY DAY Albuterol Sulfate HFA 108 (90 Base) MCG/ACT Aerosol Solution 1 puff as needed Inhalation every 4 hrsTaking Indomethacin 50 MG Capsule take one capsule(s) three times a day with food Orally Three times a dayTaking Rosuvastatin Calcium 5 MG Tablet take one tablet by mouth every evening Orally Once a dayTaking Valsartan-hydroCHLOROthiazide 160-12.5 MG Tablet TAKE ONE TABLET BY MOUTH EVERY DAY Taking Albuterol Sulfate HFA 108 (90 Base) MCG/ACT Aerosol Solution 1 puff as needed Inhalation every 4 hrsNot-Taking/PRNIbuprofen 200 MG Tablet 1 tablet with food or milk as needed Orally Three times a dayCyclobenzaprine HCl 5 MG Tablet 1 or 2tablet at bedtime as needed Orally twice a dayAlbuterol Sulfate HFA 108 (90 Base) MCG/ACT Aerosol Solution 1 puff as needed Inhalation every 4 hrsColchicine 0.6 MG Tablet 1 tablet Orally twice a dayZyrTEC Allergy 10 MG Tablet 1 tablet Orally Once a dayNot-Taking/PRN Ibuprofen 200 MG Tablet 1 tablet with food or milk as needed Orally Three times a dayNot-Taking/PRN Cyclobenzaprine HCl 5 MG Tablet 1 or 2tablet at bedtime as needed Orally twice a dayNot-Taking/PRN Albuterol Sulfate HFA 108 (90 Base) MCG/ACT Aerosol Solution 1 puff as needed Inhalation every 4 hrsNot- Taking/PRN Colchicine 0.6 MG Tablet 1 tablet Orally twice a dayNot-Taking/PRN ZyrTEC Allergy 10 MG Tablet 1 tablet Orally Once a day * Allergies:?N.K.D.A.yes[Aller gies Verified] Objective: * Vitals:?Ht: 70.5, Wt:225, BM I:31.82, BP:138/72 weight is up 4 pounds since 10-25-23. * Examination: ???General Examination: ?GENERAL APPEARANCE:?normal.?HEART:?no murmurs, rubs, gallops , regular rate and rhythm.?LUNGS:?good air movement , no wheezes, rales, rhonchi , clear to auscultation bilaterally.?EXTREMITIES:?abnormal left great toe with mild swelling and no pain.? Assessment: * Assessment: 1.?Acute idiopathic gout inv olving toe of left foot - M10.072 (Primary)? Plan: * Treatment: * Procedure Codes:?90418 VENIP UNCT, ROUTINE* * * Sign off status: Completed true * Provider:?Willie Palomino MD Date:?1 04/09/2023 Generated for Magno neves/Hipolito/Susanitting on:?04/24/2024 02:36 PM EST History and Physical Notes * HPI (History of Present Illness) Category Sub-Category Detail Notes Category Not es Symptom(s) patient is a 58 yo male here with complaint of left great toe pain and discoloration for 2 weeks of inflammation in toe. taking gout meds and it didn't help/ iced and voltaren and then restarted indomethicin. now still a little pain if he pushes on it. Examination Category Sub-Category Detail Notes Category Not es General Examination GENERAL APPEARANCE: normal HEART: no murmurs, rubs, ga llops , regular rate and rhythm LUNGS: good air movement , no wheezes, rales, rhonchi , clear to auscultation bilaterally EXTREMITIES: abnormal left great toe with mild swelling and no pain
--- OUTSIDE RECORDS SUMMARY | 2024-04-24 14:37 | XMS_ITS ---
Author Organization Willie Palomino MD Address [address] [place], [place] [phone] Care Team Providers Care Big 6 Dealer Name Role Phone Willie Palomino Primary Care Provider Results Component Value Reference Range Notes Liver Panel Reviewed date:01/23/2024 12:36:11 PM Interpretation: Performing Lab:[facility], [address] [place] [phone] Notes/Report: Bilirubin Total 0.3 0.0-1.0 mg/dL Bilirubin Direct 0.1 0.0-0.5 mg/dL Aspartate Amino Transferase 36 5-37 U/L Alanine Aminotransferase 34 0-40 U/L Total Protein 6.6 6.5-8.0 g/dL Albumin Level 4.2 3.5-5.0 g/dL Alkaline Phosphatase 41 39-117 U/L Lipid Panel with Reflex Reviewed date:01/23/2024 12:36:21 PM Interpretation: Performing Lab:[facility], [address] [place] [phone] Notes/Report: Triglycerides 138 <150 mg/dL Desirable Triglyceride: [...] REASON FOR VISIT fasting lipids and liver Medications Medication SIG (Take, Route, Frequency, Duration) [...] Location Date Provider Diagnosis Willie Palomino MD [address] [place] [address] Drive [address] [place] [phone] 01/23/2024 Willie Palomino Pure hypercholestero lemia E78.00 Assessments Encounter Date Diagnosis (ICD Code) Assessment Notes Treatment Notes Treatment Clinical Notes Section Notes 01/23/2024 Pure hypercholesterolemia (ICD-10 - E78.00) Plan Of Treatment Next Appt Details Provider Name:Willie Bazan ier, 04/26/2024 09:00:00 AM, [address] [facility], [address], [place], [place], [phone], Provider Name:Willie Bazan christian, 10/23/2024 07:00:00 AM, [address] [facility], [address], [place], [place], [phone], Provider Name:Willie Bazan christian, 10/30/2024 09:30:00 AM, [address] [facility], [address], [place], [place], [phone], Progress Notes * Shar READDOB: 7 (58 yo M)Acc No.[id number]:01/23/2024 Progress Note Patient:Shar FUNG Provider:?Willie Palomino MD :1965???Age:58 Y???Sex:Male Davi e:01/23/2024 Address:[address] [place], [place] [phone] Subjective: * Chief Complaints: * ???1. Fasting lipids and candace er. * Medical History:? * Medications:?Taking Indometh acin 50 MG Capsule take one capsule(s) three times a day with food Orally Three times a day , Taking Rosuvastatin Calcium 5 MG Tablet take one tablet by mouth every evening Orally Once a day , Taking Valsartan-hydroCHLOROthiazide 160-12.5 MG Tablet TAKE ONE TABLET BY MOUTH EVERY DAY , Taking Albuterol Sulfate HFA 108 (90 Base) MCG/ACT Aerosol Solution 1 puff as needed Inhalation every 4 hrs , Not-Taking/PRN Ibuprofen 200 MG Tablet 1 tablet with food or milk as needed Orally Three times a day , Not-Taking/PRN Cyclobenzaprine HCl 5 MG Tablet 1 or 2tablet at bedtime as needed Orally twice a day , Not-Taking/PRN Albuterol Sulfate HFA 108 (90 Base) MCG/ACT Aerosol Solution 1 puff as needed Inhalation every 4 hrs , Not-Taking/PRN Colchicine 0.6 MG Tablet 1 tablet Orally twice a day , Not-Taking/PRN ZyrTEC Allergy 10 MG Tablet 1 tablet Orally Once a day Objective: * Vitals:? Assessment: * Assessment: 1.?Pure hypercholesterolemia - E78.00??? Plan: * Treatment: * * The named appointment provid er may or may not be the originator of this progress note, and it is not deemed complete until electronically signed by the appointment provider. Sign off status: Pending * Provider:?Willie Palomino MD Date:?1 03/24/2023 Generated for Magno neves/Hipolito/Susanitting on:?04/24/2024 02:37 PM EST
--- OUTSIDE RECORDS SUMMARY | 2024-04-24 14:37 | XMS_ITS | Data Portability ---
Author Organization [facility] Sheyla Acosta AONE Winter Address [address] [place] [address] Care Team Providers Care Recruiter Specialist Name Role Phone SOLO GUTIERREZ Primary Care Provider Assessment Encounter Date Assessment Date Assessment LastModified [...] complications. All questions answered to his satisfaction. [email or web address] Not available 01/11/2023 09:48:32 Plan of Treatment [...] Imaging XR, knee, 3 [facility] 2022 [facility], [address], [place], [address], 3 11:08:04 Medication Orders None recorded. Patient TargetsNo targets recorded. Patient Instructions Encounter Date Encounter Id Patient Instructions Last Modified By Organization Details Last Modified Time 01/11/2023 [id number] patellar trackin g disorder: exercises [email or web address] Not available 01/11/2023 09:47:44 Radiographs: 3 views of the {{Left Right*}} knee were obtained in the {{[place]} } office including AP, lateral (weightbearing), [...] tracking X-ray interpretation by: Yosef Delgado PA-C [email or web address] Not available 01/11/2023 09:52:45 Reason for Referral [...] Time Patellofemo ral syndrome of right knee [id number] 103 Active [address], [place], [address], [place] [facility], P 3 09:46:13 Tendinitis of right patellar tendon 7309406158025 09 Active 2022 YOSEF DELGADO PA-C [address], [place], [address], [place] [facility], P 3 09:46:34 Problem Notes None recorded. Procedures Surgical History Date Name Laterality Status Provider Name and Address Organization Details Recorded Time Knee arthroscopy /surgery completed Katheryn Cabrera [place] [facility] 01/11/2023 09:21:04 Imaging Results None recorded. Procedure Notes None recorded. Medical Equipment None Reported. Allergies Allergen ID Allergen Name Allergen Category Reaction Reaction Severity Criticality Documentation Date Start Date Code Code System Note Provider Name and Address Organization Details Recorded Time 39076 mold extract environme nt Not available Not available Not available 01/11/2023 55339 8 RxNorm Katheryn Cabrera null, [place] [facility], P 3 09:18:04 08041 house dust allergeni c extract environme nt,medica tion Not available Not available Not available 01/11/2023 85097 9 RxNorm Katheryn Cabrera null, [place] [facility] 09:18:10 [address] tree and shrub pollen environme nt,medica tion Not available Not available Not available 01/11/2023 37578 UNK Katheryn Cabrera null, [facility] 09:18:31 Medications Name Sig Start Date Stop [...] Updated DateTime 01/11/2023 180.34 cm 31.4 kg/m2 762781.28 g Katheryn Lopezvan [facility] 01/11/2023 09:19:10 Social History Question Answer Notes LastModified by Organizat ion Details LastModified Time Tobacco Smoking Status Never Smoker Katheryn Beckfordlivan null, [place] [facility] 01/11/2023 09:19:24 What Is Your Level Of Alcohol Consumption? None [email or web address] Information not available 01/11/2023 Do You Use Any Illicit Or Recreational Drugs? No [email or web address] Information not available 01/11/2023 Do You Or Have You Ever Used Any Other Forms Of Tobacco Or Nicotine? No [email or web address] Information not available 01/11/2023 Sex: Unknown Functional Status None recorded. Mental Status None recorded. Family History Relationship Description Onset Age of this Age Resolved Age Notes LastModified by Organization Details LastModified Time Father Family history of malignant neoplasm [email or web address] Not available 12/29 09:19:56 Father Heart disease [email or web address] Not available 12/29 09:20:21 Father Hyperlipidem ia [email or web address] Not available 12/29 09:20:37 Father Hypertensive disorder [email or web address] Not available 12/29 09:20:51 Mother Diabetes mellitus [email or web address] Not available 12/29 09:20:10 Mother Hyperlipidem ia [email or web address] Not available 12/29 09:20:36 Mother Hypertensive disorder [email or web address] Not available 12/29 09:20:51 Medical History Condition Response Gout Y Past Encounters Encounter ID Performer Location Encounter Start Date Encounter Closed Date Diagnosis/Indication Diagnosis SNOMED-CT Code Diagnosis ICD10 Code Diagnosis Note [id number] Tushar Terrell MD [facility] [address] [place] [phone] 01/11/2023 08:40:55 01/11/2023 09:50:44 Pain of right knee joint 4951804827 03764 M25.561 Patellofem oral syndrome of right knee 4162406551 535932 M22.2X1 Tendinitis of right patellar tendon 8245130880 88564 M76.51 Health Concerns Section Related Observation LastModified [...] YOSEF DELGADO PA-C [address], [place], [address], [place] [facility] 01/11/2023 09:53:03
--- OUTSIDE RECORDS SUMMARY | 2024-04-24 14:37 | XMS_ITS ---
Author Organization Willie Palomino MD Address [address] [facility] [address] [place] [phone] Care Team Providers Care Car Checker Name Role Phone Willie Palomino Primary Care Provider [phone] REASON FOR VISIT fasting lipids Encounters Encounter Location Date Provider Diagnosis Willie Palomino MD [address] [place] [address] [place] [phone] 04/24/2024 Willie Palomino Pure hypercholestero lemia E78.00 Assessments Encounter Date Diagnosis (ICD Code) Assessment Notes Treatment Notes Treatment Clinical Notes Section Notes 04/24/2024 Pure hypercholesterolemia (ICD-10 - E78.00) Plan Of Treatment Pending Test Test Name Order Date LIPID PANEL WITH REFLEX TO DIRECT LDL Liver Panel 04/24/2024 Next Appt Details Provider Name:Willie gonzales, 04/26/2024 09:00:00 AM, [address] [place] [address], [address], [phone], Provider Name:Willie gonzales, 10/23/2024 07:00:00 AM, [address] [place] [address], [address], [phone], Provider Name:Willie Bazan ier, 10/30/2024 09:30:00 AM, [address], [address], [place], [place], [phone], Progress Notes * Shar READDOB: 7 (58 yo M)Acc No.[id number]:04/24/2024 Progress Note Patient:?Shar READ Provider:?Willie Palomino MD :1965???Age:58 Y???Sex:Male Davi e:04/24/2024 Address:[address] [place] [address], [facility] Subjective: * Chief Complaints: * ???1. Fasting lipids. * Medical History:? Objective: * Vitals:? Assessment: * Assessment: 1.?Pure hypercholesterolemia - E78.00 (Primary)??? Plan: * Treatment: * Procedure Codes:?08064 VENIP UNCT, ROUTINE* * * The named appointment provid er may or may not be the originator of this progress note, and it is not deemed complete until electronically signed by the appointment provider. Sign off status: Pending * Provider:?Willie Palomino MD Date:?0 04/24/2024 Generated for Magno neves/Hipolito/Susanitting on:?04/24/2024 02:36 PM EST
[2024-04-25 20:33] LABS: LDL Cholesterol Direct 85 mg/dL (<100)
== END 2024-04-24 11:56 | disposition home or self-care (01) ==
LOC: HO.LNP 11:55
PROVIDERS: Visit Provider Internal Medicine
DX: E78.00 Pure hypercholesterolemia, unspecified (principal)
CPT/HCPCS: 80061; 83721

== ENCOUNTER 2024-06-22 16:31 | Emergency (ER) | payer OTHER, SELFPAY ==
[2024-06-22 16:37] VITALS: BP 154/85; PULSE 64; RESP 16; TEMP 37.2; O2SAT 97; BMI 35.0
--- NOTE | 2024-06-22 16:44 | ED_ITS ---
HPI - General Adult General Chief complaint: Abdominal Pain Stated complaint: Possible Kidney Stone Time Seen by Provider: 06/22/24 17:41 History of Present Illness ED Provider: Solitario VIRK narrative: The patient is a 58-year-old male with a history of gout, nonalcoholic steatohepatitis (BOJORQUEZ), and longstanding microscopic hematuria. The patient says that 4 days ago on Tuesday night he developed diarrhea and vomiting. He also developed a low-grade fever. He had loose stools for several days which he says were very pale, almost white. The vomiting stopped on Tuesday but the pale stools continued until this morning. Today he contacted his primary care doctor who advised him to go to an urgent care center. He went to an urgent care center where he was found to have some blood in his urine. He has also had some mild right flank discomfort. He was advised by the urgent care center to come to the emergency room because of concern about a possible kidney stone. The patient says that he has not had a fever today. He has not had any vomiting for a couple of days. He also feels that his stools have started to firm up and that the stools are starting to look slightly less pale than they had yesterday. Overall he is feeling somewhat better. He says the right flank pain is quite mild. He also says a week ago he had some similar pain on his left flank. He does not feel these pains are musculoskeletal. The patient says that the pain on his right flank is currently about a 1/10. He says that he has had microscopic hematuria for about 20 years and had a fairly extensive workup for this when it was initially identified. Related Data Home Medications ?Medication ?Instructions ?Recorded ?Confirmed indomethacin 50 mg capsule 50 mg PO TID PRN Outbreak 11/25/23 11/25/23 valsartan 160 1 tab PO DAILY 11/25/23 11/25/23 mg-hydrochlorothiazide 12.5 mg tablet Zyrtec 1 tab PO DAILY 12/27/23 12/27/23 rosuvastatin 5 mg tablet 5 mg PO DAILY 12/27/23 12/27/23 Allergies Allergy/AdvReac Type Severity Reaction Status Date / Time mite-Dermatophagoides Allergy Unknown Verified 06/22/24 16:40 jason lara [dust mite - [place]] mold Allergy Unknown Verified 06/22/24 16:40 pollen extracts Allergy Unknown Verified 06/22/24 16:40 Hayfebrol Allergy Unknown Unknown Uncoded 06/22/24 16:40 Review of Systems 2 Review of Systems: Yes all other systems are reviewed and are negative FOR[facility]LY [facility], [facility] Past Medical History Medical History Microscopic hematuria Gout Nonalcoholic steatohepatitis Surgical History H/O colonoscopy History of removal of cyst (02/02/22) S/P right knee arthroscopy Family History Family History Father Liver cancer Social History Social History Patient Tobacco Use Status: Never used Tobacco Advance Directives: No Advance Directives Information Provided: No Current occupational status: employed Current occupation: [employer] Physical Exam ED Vital Signs: Vital Signs - 24 hr 06/22/24 16:37 06/22/24 18:13 Temperature 98.9 F 97.9 F Pulse Rate 64 68 Respiratory Rate 16 18 Blood Pressure 154/85 H 147/77 H Pulse Oximetry 97 98 Oxygen Delivery Method Room Air Room Air BMI result Body Mass Index 35.0 Const Other: The patient is awake, alert, pleasant, cooperative. He does not appear ill or in distress. HENMT Other: Face is symmetrical, mucous membranes moist Eyes General: appearance normal, both eyes and all related structures Neck Neck: Yes normal visual inspection and Yes full ROM Resp Effort & Inspection: normal respiratory effort Auscultation: clear to auscultation bilaterally Cardio Rate: regular rate Rhythm: regular rhythm Heart sounds: S1 normal heart sound present and S2 normal heart sound present GI Other: The abdomen is soft and nontender Back/Spine/Pelvis Other: There is some mild right-sided CVA percussion tenderness. Skin Other: Skin is dry and unremarkable. Neuro Other: The patient is awake and alert with a normal mental status. Cranial nerves are grossly intact. He moves his extremities normally and appropriately. He seems grossly neurologically intact. Extrem Other: No peripheral edema Course Course Course Narrative: This is a Rapid Medical Examination (RME) performed by Aston Rutledge PA-C in triage. Full HPI, ROS, assessment and treatment plan per primary provider in the Main ED. 06/22/24 1644 RUBI Mckenna Hx: 58-year-old male here from urgent care to rule out kidney stones. Reports GI bug at the beginning of the week consisting of diarrhea that is white/gomez in color. States he has had blood in his urine with associated right-sided flank pain. Denies history of kidney stones. no nausea at present. Admits to intermittent low-grade fevers. PE/vitals: Well-appearing Plan: labs, viral swabs, UA Medical Decision Making Medical Decision Making MDM Narrative: The patient is a very pleasant 58-year-old male who has been ill for about 4 days. He has had low-grade fevers, vomiting, and diarrhea. Apparently his son has had some similar viral symptoms. He has also had some mild right lower back pain. He was seen at an urgent care today because of the symptoms and was referred to the emergency room because of hematuria on his urinalysis. He reports a history of microscopic hematuria. The patient's lab testing today seems very reassuring. He has a normal white count and an unremarkable differential. He has bilirubin is normal. Basic metabolic panel is unremarkable. Urinalysis shows 2+ blood and 11-20 red cells. This is similar to previous urinalyses in our system. I spoke to the patient about possibly doing imaging by CAT scan or ultrasound. Ultimately we agreed that there did not seem to be any likely acutely dangerous process at work and that forgoing any imaging today was not unreasonable. The patient will therefore be discharged to monitor her then contact his PCP next week if any symptoms of significance persist. He should return to the ER if worse. Lab Data 06/22/24 16:55 06/22/24 16:55 Labs: Lab Results 06/22/24 06/22/24 Range/Units 16:55 16:59 WBC 9.5 (4.8-10.8) X10*3/uL RBC 5.23 (4.60-5.80) X10*6/uL Hgb 16.4 (14.0-18.0) g/dl Hct 47.2 (42.0-52.0) % MCV 90.2 (80.0-98.0) fL MCH 31.4 (27.0-33.0) pg MCHC 34.7 (31.0-36.0) g/dl RDW 12.0 (11.0-16.0) % Plt Count 274 (160-400) X10*3/uL MPV 9.4 (9.4-12.4) fL Immature Gran % (Auto) 0.2 (0.0-0.4) % Neut % (Auto) 46.6 (45-73) % Lymph % (Auto) 33.7 (20-40) % [place] % (Auto) 12.8 H (2-11) % Eos % (Auto) 6.0 H (0-4) % Baso % (Auto) 0.7 (0-2) % Lymph # (Auto) 3.2 (1.2-4.9) X10*3/uL [place] # (Auto) 1.2 (0.1-1.2) X10*3/uL Eos # (Auto) 0.6 H (0.0-0.4) X10*3/uL Baso # (Auto) 0.1 (0.0-0.2) X10*3/uL Abs Immat Gran (auto) 0.02 (0.00-0.03) X10*3/uL Absolute Neuts (auto) 4.4 (2.0-8.3) x10*3/uL Absolute Nucleated RBC 0.000 (0.0-0.012) X10*3/uL Nucleated RBC % (auto) 0.0 (0.0-0.2) /100WBC Sodium 137 (135-145) mmol/L Potassium 4.0 (3.3-5.1) mmol/L Chloride 104 (96-108) mmol/L Carbon Dioxide 28 (22-29) mmol/L Anion Gap 9 L (12-20) BUN 20 H (9-16) mg/dL Creatinine 0.90 (0.5-1.4) mg/dL Estim Creat Clear Calc 119.6 Estimated GFR > 60 Random Glucose 84 (60-115) mg/dL Calcium 9.8 (8.4-10.2) mg/dL Magnesium 2.0 (1.6-2.6) mg/dL Total Bilirubin 0.3 (0.0-1.0) mg/dL AST 39 H (5-37) U/L ALT 47 H (0-40) U/L Alkaline Phosphatase 39 (39-117) U/L Total Protein 7.4 (6.5-8.0) g/dL Albumin 4.5 (3.5-5.0) g/dL Lipase 22 (8-78) U/L Urine Color Yellow Urine Appearance Clear Urine pH 6.0 (5.0-9.0) Ur Specific [place] 1.020 (1.005-1.025) Urine Protein Trace (Neg-Trace) mg/dL Urine Glucose (UA) Negative (Negative) mg/dL Urine Ketones Negative (Negative) mg/dL Urine Blood Moderate (2+) H (Negative) Urine Nitrite Negative (Negative) Ur Leukocyte Esterase Negative (Negative) Urine RBC 11-20 H (0-2) /HPF Urine WBC 0-5 (0-5) /HPF Ur Squamous Epith Cells 0-2 (0-2) /HPF Urine Bacteria None Seen (None Seen) Hyaline Casts 0-2 (0-2) /LPF Influenza Type A (PCR) NEGATIVE (Negative) Influenza Type B (PCR) NEGATIVE (Negative) RSV RNA Qual (PCR) NEGATIVE (Negative) SARS-CoV-2 RNA (RT-PCR) NEGATIVE (Negative) Discharge Plan Discharge Clinical Impression: Vomiting and diarrhea, Pale stool, Right flank pain, Microscopic hematuria Patient Disposition: Home, Self-Care Additional Instructions: Your blood testing today is very reassuring. You has a normal white blood count with unremarkable ratios of the different kinds of white blood cells. Your liver testing shows a normal bilirubin. Your urine testing shows microscopic hematuria similar to previous values you have had in the past. Given that you feel reasonably well and most of your symptoms seemed to be improving I think for going any further investigations today is reasonable. Contact your regular doctor next week if you have any ongoing symptoms or worsening symptoms. If you feel significantly more ill or are in significantly more pain the please return to the emergency room for additional evaluation. Prescriptions: No Action valsartan-hydrochlorothiazide 160-12.5 mg tablet 1 tab PO DAILY indomethacin 50 mg capsule 50 mg PO TID PRN (Reason: Outbreak) rosuvastatin 5 mg tablet 5 mg PO DAILY Zyrtec 1 tab PO DAILY Referrals: Willie Palomino MD [Primary Care Provider] - Interventions: ED Discharge Assessment Last Done: 06/22/24 18:13 Print Language: German
[2024-06-22 17:03] LABS: MANUAL DIFF FLAG NO
[2024-06-22 17:04] LABS: Basophils Absolute Auto 0.1 X10*3/uL (0.0-0.2); Basophils Percent Auto 0.7 % (0-2); Eosinophils Absolute Auto 0.6 X10*3/uL (0.0-0.4); Hematocrit 47.2 % (42.0-52.0); Hemoglobin 16.4 g/dl (14.0-18.0); Imm Gran Abs Auto 0.02 X10*3/uL (0.00-0.03); Imm Gran Pct Auto 0.2 % (0.0-0.4); Lymphocytes Absolute Auto 3.2 X10*3/uL (1.2-4.9); Lymphocytes Percent Auto 33.7 % (20-40); Mean Corpuscular HGB Conc 34.7 g/dl (31.0-36.0); Mean Corpuscular Hemoglobin 31.4 pg (27.0-33.0); Mean Corpuscular Volume 90.2 fL (80.0-98.0); Mean Platelet Volume 9.4 fL (9.4-12.4); Monocytes Absolute Auto 1.2 X10*3/uL (0.1-1.2); Monocytes Percent Auto 12.8 % (2-11); Neutrophils Absolute Auto 4.4 x10*3/uL (2.0-8.3); Neutrophils Percent Auto 46.6 % (45-73); Platelet Count 274 X10*3/uL (160-400); Red Blood Count 5.23 X10*6/uL (4.60-5.80); White Blood Count 9.5 X10*3/uL (4.8-10.8)
[2024-06-22 17:08] LABS: Appearance Urine Clear; Color Urine Yellow; Glucose Urine UA Negative (Negative); Leukocyte Esterase Urine Negative (Negative); Nitrite Urine Negative (Negative); UMIC TRIGGER UACC YES; Urine Blood Moderate (2+) (Negative); Urine Ketones Negative (Negative); Urine Protein Trace mg/dL (Neg-Trace)
[2024-06-22 17:10] LABS: Bacteria Urine None Seen (None Seen); Hyaline Casts Urine 0-2 /LPF (0-2); Squamous Epithelial Cell Urine 0-2 /HPF (0-2); WBC Urine 0-5 /HPF (0-5)
[2024-06-22 17:17] LABS: Alanine Aminotransferase 47 U/L (0-40); Albumin Level 4.5 g/dL (3.5-5.0); Alkaline Phosphatase 39 U/L (39-117); Anion Gap 9 (12-20); Aspartate Amino Transferase 39 U/L (5-37); Bilirubin Total 0.3 mg/dL (0.0-1.0); Blood Urea Nitrogen 20 mg/dL (9-16); Calcium 9.8 mg/dL (8.4-10.2); Carbon Dioxide 28 mmol/L (22-29); Chloride 104 mmol/L (96-108); Creatinine Clr Calc Pharmacy 119.6; Estimated Glomerular Filt Rate > 60; Glucose Random 84 mg/dL (60-115); Lipase 22 U/L (8-78); Sodium 137 mmol/L (135-145); Total Protein 7.4 g/dL (6.5-8.0)
[2024-06-22 17:41] LABS: Influenza A PCR NEGATIVE (Negative); Influenza B PCR NEGATIVE (Negative); Resp Syncy Virus RNA Qual PCR NEGATIVE (Negative); SARS COV2 PCR INHOUSE NEGATIVE (Negative)
[2024-06-22 18:13] VITALS: BP 147/77; PULSE 68; RESP 18; TEMP 36.6; O2SAT 98
--- OUTSIDE RECORDS SUMMARY | 2024-06-22 18:17 | XMS_ITS | Data Portability ---
Author Organization [place] [facility] Sheyla Acosta [place] Address [address] [place] [address] Care Team Providers Care Australian Rules Footballer Name Role Phone SOLO GUTIERREZ Primary Care Provider [phone] Assessment Encounter Date Assessment Date Assessment LastModified [...] complications. All questions answered to his satisfaction. [email or web address] Not available 01/11/2023 09:48:32 Plan of Treatment [...] Imaging XR, knee, 3 [facility], [address], [place], [address], 3 11:08:04 Medication Orders None recorded. Patient TargetsNo targets recorded. Patient Instructions Encounter Date Encounter Id Patient Instructions Last Modified By Organization Details Last Modified Time 01/11/2023 [id number] patellar trackin g disorder: exercises Not available 01/11/2023 09:47:44 Radiographs: 3 views of the {{Left Right*}} knee were obtained in the {{[place]* [place]} } office including AP, lateral (weightbearing), [...] tracking X-ray interpretation by: Yosef Delgado PA-C [email or web address] Not available 01/11/2023 09:52:45 Reason for Referral [...] Time Patellofemo ral syndrome of right knee 3457040726909 103 Active [address], [place], [address], [place] [facility] 3 09:46:13 Tendinitis of right patellar tendon 3878288894196 09 Active 2022 YOSEF DELGADO PA-C [address], [place], [address], [place] [facility] 3 09:46:34 Problem Notes None recorded. Procedures Surgical History Date Name Laterality Status Provider Name and Address Organization Details Recorded Time Knee arthroscopy /surgery completed Katheryn Cabrera [place] [facility] 01/11/2023 09:21:04 Imaging Results None recorded. Procedure Notes None recorded. Medical Equipment None Reported. Allergies Allergen ID Allergen Name Allergen Category Reaction Reaction Severity Criticality Documentation Date Start Date Code Code System Note Provider Name and Address Organization Details Recorded Time 88937 mold extract environme nt Not available Not available Not available 01/11/2023 31845 8 RxNorm Katheryn Cabrera null, [place] [facility] 3 09:18:04 26886 house dust allergeni c extract environme nt,medica tion Not available Not available Not available 01/11/2023 12301 9 RxNorm Katheryn Cabrera null, [place] [facility] 09:18:10 77230 tree and shrub pollen environme nt,medica tion Not available Not available Not available 01/11/2023 [id number] UNK Katheryn Cabrera null, [facility] 09:18:31 Medications Name Sig Start [...] Updated DateTime 01/11/2023 180.34 cm 31.4 kg/m2 155227.28 g Katheryn Lopezvan [facility] 01/11/2023 09:19:10 Social History Question Answer Notes LastModified by Organizat ion Details LastModified Time Tobacco Smoking Status Never Smoker Katheryn Beckfordlivan null, [place] [facility] 01/11/2023 09:19:24 What Is Your Level Of Alcohol Consumption? None [email or web address] Information not available 01/11/2023 Do You Use Any Illicit Or Recreational Drugs? No [email or web address] Information not available 01/11/2023 Do You Or Have You Ever Used Any Other Forms Of Tobacco Or Nicotine? No [email or web address] Information not available 01/11/2023 Sex: Unknown Functional Status None recorded. Mental Status None recorded. Family History Relationship Description Onset Age of this Age Resolved Age Notes LastModified by Organization Details LastModified Time Father Family history of malignant neoplasm [email or web address] Not available 12/29 09:19:56 Father Heart disease [email or web address] Not available 12/29 09:20:21 Father Hyperlipidem ia [email or web address] Not available 12/29 09:20:37 Father Hypertensive disorder [email or web address] Not available 12/29 09:20:51 Mother Diabetes mellitus [email or web address] Not available 12/29 09:20:10 Mother Hyperlipidem ia Not available 12/29 09:20:36 Mother Hypertensive disorder [email or web address] Not available 12/29 09:20:51 Medical History Condition Response Gout Y Past Encounters Encounter ID Performer Location Encounter Start Date Encounter Closed Date Diagnosis/Indication Diagnosis SNOMED-CT Code Diagnosis ICD10 Code Diagnosis Note [id number] Tushar Terrell MD [facility] [address] [place] [phone] 01/11/2023 08:40:55 01/11/2023 09:50:44 Pain of right knee joint 3396057692 71996 M25.561 Patellofem oral syndrome of right knee 0669343633 954996 M22.2X1 Tendinitis of right patellar tendon 2435575349 60441 M76.51 Health Concerns Section Related Observation LastModified [...] YOSEF DELGADO PA-C [address], [place], [address], [place] [facility] 01/11/2023 09:53:03
== END 2024-06-22 18:17 | disposition home or self-care (01) ==
LOC: HO.ED 18:15
PROVIDERS: Emergency Provider Emergency Medicine; PCP Internal Medicine
DX: R11.2 Nausea with vomiting, unspecified (principal); R19.7 Diarrhea, unspecified; R10.9 Unspecified abdominal pain; R31.29 Other microscopic hematuria; R19.5 Other fecal abnormalities; Z03.818 Encounter for observation for suspected exposure to other biological agents ruled out
CPT/HCPCS: 0241U; 36415; 80053; 81001; 83690; 83735; 85025; 99282; 99283

== ENCOUNTER 2024-10-23 11:16 | Outpatient (REF) | payer OTHER, SELFPAY ==
--- OUTSIDE RECORDS SUMMARY | 2023-11-29 05:50 | XMS_ITS ---
Author Organization [facility] Address [address] [place] [id number] Care Team Providers Care Wallet Assembler Name Role Phone Willie Palomino MD Primary Care Provider Cleve Lechuga Jr [phone] REASON FOR VISIT change in bowel movement Encounters Encounter Location Date Provider Diagnosis [facility] Outpatient [address] [place] [id number] 11/29/2023 Cleve Rincon Jr Plan Of Treatment No Information Progress Notes * MIKE READDOB: 7 (58 yo M)Acc No.[id number]:11/29/2023 COLON WITH MAC Patient: MIEK MILLER Provider: Katherine Rincon MD :1965 A ge:58 Y S ex:Male Date:11/29/2023 Address:[address] [place], [place] [id number] Pcp:Willie Palomino MD Subjective: * Chief Complaints: * 1 . Change in bowel movement. * Medical History: Objective: * Vitals: Assessment: Plan: * Treatment: * * The named appointment provid er may or may not be the originator of this progress note, and it is not deemed complete until electronically signed by the appointment provider. Sign off status: Pending * Provider: Katherine Rincon MD Date: 1 Generated for Magno neves/Hipolito/eTransmitting on: 0 10/23/2024 12:12 PM EDT
--- OUTSIDE RECORDS SUMMARY | 2023-12-27 06:40 | XMS_ITS ---
Author Organization [facility] Address [address] [place] [id number] Care Team Providers Care Knitter Hand Name Role Phone Willie Palomino MD Primary Care Provider Cleve Lechuga Jr [phone] REASON FOR VISIT change in bowel movement Encounters Encounter Location Date Provider Diagnosis [facility] Outpatient [address] [place] [phone] 12/27/2023 Cleve Rincon Jr Colon cancer screening Z12.11 and Colon polyps K63.5 Assessments Encounter Date Diagnosis (ICD Code) Assessment Notes Treatment Notes Treatment Clinical Notes Section Notes 12/27/2023 Colon cancer screening (ICD-10 - Z12.11) 12/27/2023 Colon polyps (ICD-10 - K63.5) Plan Of Treatment No Information Progress Notes * MIKE READDOB: 7 (58 yo M)Acc No.[id number]:12/27/2023 COLON WITH MAC Patient: MIKE MILLER Provider: Katherine Rincon MD :1965 A ge:58 Y S ex:Male Date:12/27/2023 Address: [place], [place] Pcp:Willie Palomino MD Subjective: * Chief Complaints: * 1 . Change in bowel movement. * Medical History: Objective: * Vitals: Assessment: * Assessment: 1. C olon cancer screening - Z12.11 (Primary) 2 . C olon polyps - K63.5? Plan: * Treatment: * Procedure Codes: 4 5380 COLONOSCOPY AND BIOPSY, 0529F INTRVL 3+YRS PTS CLNSCP DOCD, 0528F RCMND FLW-UP 10 YRS DOCD, Modifiers: 1P * * The named appointment provid er may or may not be the originator of this progress note, and it is not deemed complete until electronically signed by the appointment provider. Sign off status: Pending * Provider: Katherine Rincon MD Date: 1 Generated for Magno neves/Hipolito/Susanitting on: 0 10/23/2024 12:12 PM EDT
--- OUTSIDE RECORDS SUMMARY | 2024-04-26 05:00 | XMS_ITS ---
Author Organization Willie Palomino MD Address [address] [place] [phone] Care Team Providers Care Licensed Nurse Practitioner Name Role Phone Willie Palomino Primary Care Provider Allergies No Known Allergies REASON FOR VISIT 6 month, c/o left great toe pain Medications Medication SIG (Take, Route, Frequency, Duration) Notes Start Date End Date Status Ibuprofen 200 MG 1 tablet with food [...] mouth every evening Orally Once a day Active Indomethacin 50 MG take one capsule(s) three times a day with food Orally Three times a day for 10 days Active Valsartan-hydroCHLOROthiazi de 160-12.5 MG TAKE ONE TABLET BY MOUTH EVERY DAY Active Albuterol Sulfate HFA 108 (90 Base) MCG/ACT 1 puff as needed Inhalation every 4 hrs 02/08/2023 Active Vital Signs Blood pressure systolic 132 mm Hg 04/26/19 25 Blood pressure diastolic 78 mm Hg 025 Height 70.5 in 04/26/2024 Weight 228 lbs 04/26/2024 BMI 32.25 kg/m2 04/26/2024 weight is up 3 pounds since 02-07-24 Encounters Encounter Location Date Provider Diagnosis Willie Palomino MD [address] [place] [address] Drive [address] [place], [place] [phone] 04/26/2024 Willie Palomino Essential hypertensi on I10 ; Toe pain, left M79.675 and Pure hypercholesterolemia E78.00 Assessments Encounter Date Diagnosis (ICD Code) Assessment Notes Treatment Notes Treatment Clinical Notes Section Notes 04/26/2024 Essential hypertensi on (ICD-10 - I10) doing well on meds, will continue current regiment 04/26/2024 Toe pain, left (ICD- 10 - M79.675) 04/26/2024 Pure hypercholesterolemia (ICD-10 - E78.00) stable, hilda continue current regiment 04/26/2024 Other will continue current regiment Plan Of Treatment Medication Medication Name Sig Start Date Stop Date Notes Rosuvastatin Calcium 5 MG take one table t by mouth every evening Orally Once a day Valsartan-hydroCHLOROthiazid e 160-12.5 MG TAKE ONE TABLET BY MOUTH EVERY DAY Treatment Notes Assessment Notes Essential hypertension doing well on med s, will continue current regiment Pure hypercholesterolemia stable, hilda co ntinue current regiment Other will continue curren t regiment Next Appt Details Provider Name:Willie gonzales, 11/02/2024 09:15:00 AM, [address], [address], [place], [place], [phone], Provider Name:Willie gonzales, 11/16/2024 11:00:00 AM, [address] [place] [address], [address], [place], [place], [phone], Progress Notes * Tova READ: 7 (58 yo M)Acc No.[id number]:04/26/2024 Progress Notes Patient: Shar MILLER Provider: Nelson Palomino MD :1965 A ge:58 Y S ex:Male Date:04/26/2024 Address:[address], [facility] Subjective: * Chief Complaints: * 6 monthC/o left great toe pain * HPI: S ymptom(s): patient is a 58 yo male having pain in left great toe. his shellfish harvester told him there was nothing else to do for it and he had to live with it. * ROS: G eneral/Constitutional: Denies C hills. D enies F atigue. D enies F ever. D enies H eadache. E NT: Patient denies d ecreased sense of smell, any loss of taste, sore throat. D enies S ore throat. R espiratory: Denies C ough. D enies S hortness of breath at rest. D enies S hortness of breath with exertion. G astrointestinal: Denies D iarrhea. D enies N ausea. M usculoskeletal: Patient denies m uscle aches. P eripheral Vascular: Patient denies r ed and blue toes. * Medical History: * Surgical History: * Hospitalization/Major Diagno stic Procedure: * Medications: T akingIndomethacin 50 MG Capsule take one capsule(s) three times a day with food Orally Three times a day Rosuvastatin Calcium 5 MG Tablet take one tablet by mouth every evening Orally Once a day Valsartan-hydroCHLOROthiazide 160-12.5 MG Tablet TAKE ONE TABLET BY MOUTH EVERY DAY Albuterol Sulfate HFA 108 (90 Base) MCG/ACT Aerosol Solution 1 puff as needed Inhalation every 4 hrs Taking Indomethacin 50 MG Capsule take one capsule(s) three times a day with food Orally Three times a day Taking Rosuvastatin Calcium 5 MG Tablet take one tablet by mouth every evening Orally Once a day Taking Valsartan-hydroCHLOROthiazide 160-12.5 MG Tablet TAKE ONE TABLET BY MOUTH EVERY DAY Taking Albuterol Sulfate HFA 108 (90 Base) MCG/ACT Aerosol Solution 1 puff as needed Inhalation every 4 hrs Not-Taking/PRNIbuprofen 200 MG Tablet 1 tablet with food or milk as needed Orally Three times a day Cyclobenzaprine HCl 5 MG Tablet 1 or 2tablet at bedtime as needed Orally twice a day Albuterol Sulfate HFA 108 (90 Base) MCG/ACT Aerosol Solution 1 puff as needed Inhalation every 4 hrs Colchicine 0.6 MG Tablet 1 tablet Orally twice a day ZyrTEC Allergy 10 MG Tablet 1 tablet Orally Once a day Not-Taking/PRN Ibuprofen 200 MG Tablet 1 tablet with food or milk as needed Orally Three times a day Not-Taking/PRN Cyclobenzaprine HCl 5 MG Tablet 1 or 2tablet at bedtime as needed Orally twice a day Not-Taking/PRN Albuterol Sulfate HFA 108 (90 Base) MCG/ACT Aerosol Solution 1 puff as needed Inhalation every 4 hrs Not- Taking/PRN Colchicine 0.6 MG Tablet 1 tablet Orally twice a day Not-Taking/PRN ZyrTEC Allergy 10 MG Tablet 1 tablet Orally Once a day DiscontinuedpredniSONE 20 MG Tablet 2 tablets Orally Once a day Medication List reviewed and reconciled with the patientDiscontinued predniSONE 20 MG Tablet 2 tablets Orally Once a day Medication List reviewed and reconciled with the patient * Allergies: N .K.D.A.yes[Allergies Verified] Objective: * Vitals: H t: 70.5, Wt: 228, BMI:32.25, BP:132/78, Wt-k.42. weight is up 3 pounds since 02-07-24. * Examination: G eneral Examination: GENERAL APPEARANCE: a lert, well hydrated, in no distress.? HEAD: n ormocephalic. SKIN: g ood turgor. HEART: n o murmurs, rubs, gallops, regular rate and rhythm.? LUNGS: n o wheezes, rales, rhonchi, good air movement, clear to auscultation bilaterally. Assessment: * Assessment: 1. T oe pain, left - M79.675 (Primary) 2 . E ssential hypertension - I10? 3. P ure hypercholesterolemia - E78.00 Plan: * Treatment: 2. P ure hypercholesterolemia Continue Rosuvastatin Calcium Tablet, 5 MG, take one tablet by mouth every evening, Orally, Once a day. Notes: stable, hilda continue current regiment 3. O thers Notes: will continue current regiment * Procedure Codes: * * Sign off status: Completed true * Provider: Nelson Palomino MD Date: 0 04/26/2024 Generated for Magno neves/Hipolito/Susanitting on: 0 10/23/2024 12:12 PM EDT History and Physical Notes * HPI (History of Present Illness) Category Sub-Category Detail Notes Category Not es Symptom(s) patient is a 58 yo male having pain in left great toe. his shellfish harvester told him there was nothing else to do for it and he had to live with it Examination Category Sub-Category Detail Notes Category Not es General Examination GENERAL APPEARANCE: alert, w ell hydrated, in no distress HEAD: normocephalic HEART: no murmurs, rubs, ga llops, regular rate and rhythm LUNGS: no wheezes, rales, r honchi, good air movement, clear to auscultation bilaterally SKIN: good turgor
--- OUTSIDE RECORDS SUMMARY | 2024-06-25 07:15 | XMS_ITS ---
Author Organization Willie Palomino MD Address [address] [facility] [address] [place] [phone] Care Team Providers Care Apparel Rental Clerk Name Role Phone Willie Palomino Primary Care Provider REASON FOR VISIT ER Encounters Encounter Location Date Provider Diagnosis Willie Palomino MD [address] [facility] [address] [place] [phone] 06/25/2024 Willie Palomino Plan Of Treatment Next Appt Details Provider Name:Willie gonzales, 11/02/2024 09:15:00 AM, [address] [place] [address], [phone], Provider Name:Willie Bazan [email or web address], 11/16/2024 11:00:00 AM, [address] [place] [address], [phone], Progress Notes * Shar READDOB: 7 (58 yo M)Acc No.[id number]:06/25/2024 Patient: Fredo HORTA Shar :1965 A ge:58 Y S ex:Male Address: [address], [place] [address] * true * Date: Generated for Magno neves/Hipolito/Lan on: 0 10/23/2024 12:12 PM EDT
--- OUTSIDE RECORDS SUMMARY | 2024-10-23 03:00 | XMS_ITS ---
Author Organization Willie Palomino MD Address [address] [place] [phone] Care Team Providers Care Clinical Science Liaison Name Role Phone Willie Palomino Primary Care Provider [phone] Results Component Value Reference Range Notes Complete Blood Count Auto Di ff (Not yet reviewed by provider) Interpretation: Performing Lab:[facility], [address] [place] [phone] Notes/Report: White Blood Count 9.0 4.8-10.8 X10*3/uL Red Blood Count 5.23 4.60-5.80 X10*6/uL Hemoglobin 16.7 14.0-18.0 g/dl Hematocrit 47.7 42.0-52.0 % Mean Corpuscular Volume 91.2 80.0-98.0 fL Mean Corpuscular Hemoglobin 31.9 27.0-33.0 pg Mean Corpuscular HGB Conc 35.0 31.0-36.0 g/dl Red Cell Distribution Width 12.4 11.0-16.0 % Platelet Count 269 160-400 X10*3/uL Mean Platelet Volume 9.9 9.4-12.4 fL Neutrophils Percent Auto 50.6 45-73 % Imm Gran Pct Auto 0.3 0.0-0.4 % Lymphocytes Percent Auto 34.6 20-40 % Monocytes Percent Auto 10.5 2-11 % Eosinophils Percent Auto 3.3 0-4 % Basophils Percent Auto 0.7 0-2 % NRBC Pct Auto 0.0 0.0-0.2 /100WBC Neutrophils Absolute Auto 4.6 2.0-8.3 x10*3/u L Imm Gran Abs Auto 0.03 0.00-0.03 X10*3/uL Lymphocytes Absolute Auto 3.1 1.2-4.9 X10*3/u L Monocytes Absolute Auto 1.0 0.1-1.2 X10*3/uL Eosinophils Absolute Auto 0.3 0.0-0.4 X10*3/u L Basophils Absolute Auto 0.1 0.0-0.2 X10*3/uL NRBC Abs Auto 0.000 0.0-0.012 X10*3/uL PSA,Total (Free>4and<10) (No t yet reviewed by provider) Interpretation: Performing Lab:[address] [phone] Notes/Report: PSA,Total (Free>4and<10) 0.67 0.00-4.00 ng/mL A Free PSA was not [...] Immunoassay (CMIA) UA ClnCatch+Micro w/rflx Cul t (Not yet reviewed by provider) Interpretation: Performing Lab:[address] [phone] Notes/Report: Urine, Clean Catch Color Urine Yellow Appearance Urine Clear PH 6.5 5.0-9.0 Glucose Urine UA Negative Negative mg/dL Urine Blood Large (3+) Negative Specific [place] - Urine 1.025 1.005-1.025 Urine Protein 30 (1+) Neg-Trace mg/dL Urine Ketones Negative Negative mg/dL Nitrite Urine Negative Negative Leukocyte Esterase Urine Negative Negative RBC Urine 6-10 0-2 /HPF WBC Urine 0-5 0-5 /HPF Squamous Epithelial Cell Urine 0-2 0-2 /HPF Bacteria Urine None Seen None Seen Hyaline Casts Urine 0-2 0-2 /LPF REASON FOR VISIT yearly fasting labs Encounters Encounter Location Date Provider Diagnosis Willie Palomino MD [address] [place] [phone] 10/23/2024 Willie Palomino Pure hypercholestero lemia E78.00 and Essential hypertension I10 Assessments Encounter Date Diagnosis (ICD Code) Assessment Notes Treatment Notes Treatment Clinical Notes Section Notes 10/23/2024 Pure hypercholesterolemia (ICD-10 - E78.00) 10/23/2024 Essential hypertensi on (ICD-10 - I10) Plan Of Treatment Pending Test Test Name Order Date Complete Blood Count Auto Diff 5 Comprehensive [place]. Panel Fast 5 Lipid Panel 10/23/2024 PSA,Total (Free>4and<10) 10/23/2024 UA ClnCatch+Micro w/rflx Cult 10/23/2024 Next Appt Details Provider Name:Willie gonzales, 11/02/2024 09:15:00 AM, [address] [place] [address], [phone], Provider Name:Willie gonzales, 11/16/2024 11:00:00 AM, [address] [place] [address], [phone], Progress Notes * Shar READDOB: 7 (58 yo M)Acc No.[id number]:10/23/2024 Progress Note Patient: Shar MILLER Provider: Nelson Palomino MD :1965 A ge:58 Y S ex:Male Date:10/23/2024 Address:[address] [place] [address], [facility] Subjective: * Chief Complaints: * 1 . Yearly fasting labs. * Medical History: Objective: * Vitals: Assessment: * Assessment: 1. P ure hypercholesterolemia - E78.00 (Primary) 2 . E ssential hypertension - I10 Plan: * Treatment: 2. E ssential hypertension L AB: Complete Blood Count Auto Diff (Collection Date & Time - 10/23/2024 07:00 AM) L AB: Comprehensive [place]. Panel Fast L AB: Lipid Panel L AB: PSA,Total (Free>4and<10) (Collection Date & Time - 10/23/2024 07:00 AM) L AB: UA ClnCatch+Micro w/rflx Cult (Collection Date & Time - 10/23/2024 07:00 AM) * Procedure Codes: 3 6415 VENIPUNCT, ROUTINE* * * The named appointment provid er may or may not be the originator of this progress note, and it is not deemed complete until electronically signed by the appointment provider. Sign off status: Pending * Provider: Nelson Palomino MD Date: 0 10/23/2024 Generated for Magno neves/Hipolito/Susanitting on: 10/23/2024 12:11 PM EDT
[2024-10-23 11:20] LABS: MANUAL DIFF FLAG NO
[2024-10-23 11:34] LABS: Hematocrit 47.7 % (42.0-52.0); Hemoglobin 16.7 g/dl (14.0-18.0); Imm Gran Abs Auto 0.03 X10*3/uL (0.00-0.03); Imm Gran Pct Auto 0.3 % (0.0-0.4); Lymphocytes Absolute Auto 3.1 X10*3/uL (1.2-4.9); Mean Corpuscular HGB Conc 35.0 g/dl (31.0-36.0); Mean Corpuscular Hemoglobin 31.9 pg (27.0-33.0); Mean Corpuscular Volume 91.2 fL (80.0-98.0); NRBC Abs Auto 0.000 X10*3/uL (0.0-0.012); NRBC Pct Auto 0.0 /100WBC (0.0-0.2); Platelet Count 269 X10*3/uL (160-400); Red Blood Count 5.23 X10*6/uL (4.60-5.80); White Blood Count 9.0 X10*3/uL (4.8-10.8)
[2024-10-23 11:37] LABS: Appearance Urine Clear; Glucose Urine UA Negative (Negative); PH 6.5 (5.0-9.0); Specific Gravity - Urine 1.025 (1.005-1.025); UMIC TRIGGER UACC YES
[2024-10-23 12:09] LABS: PSA,Total (Free>4and<10) 0.67 ng/mL (0.00-4.00)
--- OUTSIDE RECORDS SUMMARY | 2024-10-23 12:12 | XMS_ITS | Clinical Summary ---
Author Organization [facility] Address [address] [facility] 7 [place] [address] Care Team Providers Care Compress Machine Operator Name Role Phone PcpFlex Unassigned Primary Care Provider U navailable Allergies No known active allergies Medications rosuvastatin (Crestor) 10 MG tablet Take 10 mg by mouth in the morning. Active naloxone (Narcan) 4 mg/0.1 mL nasal spray ADMINISTER 1 SPRAY INTO ONE NOSTRIL. CALL 911. REPEAT AFTER 2-3 MIN IF NO OR MINIMAL RESPONSE Active Immunizations Immunization Administration Dates Next Due DT (pediatric) 03/06/2012 [...] Panel 1965 SDOH Screening 1965 Sigmoidoscopy 1965 Disability Screening 1966 Alcohol/Substance Use Screening 1978 Hepatitis C Screening 1984 DTaP/Tdap/Td Vaccines (1 - Tdap) 1985 Hepatitis B Vaccines (1 of 3 - 19+ 3-dose series) 1985 Pneumococcal Vaccine: 50+ Years (1 of 2 - PCV) 1985 COVID-19 Vaccine ( season) 2023 06/19/2021, 01/29/2021, 07/02/2020, Additional history exists Tobacco Screening 11/24/2023 11/23/2022 Influenza Vaccine (#1) 2024 , 12/30/2020, 11/21/2019, Additional history exists RSV Patients and Patients Aged 60 years [...] patient's age to complete this topic Meningococcal B Vaccine Aged Out No l onger eligible based on patient's age to complete this topic Meningococcal Vaccine Aged Out No salazar anderson eligible based on patient's age to complete this topic RSV under 20 months Aged Out No longe r eligible based on patient's age to complete this topic Rotavirus Vaccines Aged Out No longer eligible based on patient's age to complete this topic [place] [address] [address] [place] [address] HMO Care Teams Compress Machine Operator Relationship Specialty Start Date End Date PcpFlex Unassigned PCP - General Family Medicine 07/21/22
--- OUTSIDE RECORDS SUMMARY | 2024-10-23 12:12 | XMS_ITS | Clinical Summary ---
Author Organization [facility] Address [address] [place], [place] [id number] Phone Care Team Providers Care Theatre Instructor Name Role Phone Willie Palomino MD Primary Care Provider Social History Tobacco Use Types Packs/Day Years Used Date Smoking Tobacco: Never Assessed Education Answer Date Recorded Are you interested in more education? Not on hardik e 06/26/2022 Are you concerned about learning? Not on file 06/26/2022 No 06/26/2022 No 06/26/2022 Digital Access Answer Date Recorded No 07/27/2022 No 07/27/2022 Reliable internet access at home? Not on file 07/27/2022 Device with a working camera? Not on file Sex and Gender Information Value Date Recorded Sex Assigned at Not on file Legal Sex Male 8:14 AM EDT Gender Identity Not on file Sexual Orientation Not on file Plan of Treatment Not on file Medical Devices Not on file [facility] HMO POS [facility] [place] [address] [place] [address] [facility]MO [facility] H[facility] POS Care Teams Theatre Instructor Relationship Specialty Start Date End Date Willie Palomino MD [address] [place] [address] Dr Hernandez, DANISH [address] PCP - General Internal Medicine 08/17/21 Additional Source Comments The information contained in this document represents components of the legal health record. It is not the complete legal health record.[facility]
--- OUTSIDE RECORDS SUMMARY | 2024-10-23 12:12 | XMS_ITS | Patient Health Record ---
Author Organization Willie Palomino MD Address [address] [place], [place] [id number] Care Team Providers Care Absorption And Adsorption Engineer Name Role Phone Willie Palomino Primary Care Provider Allergies No Known Allergies Results Component Value Reference Range Notes Complete Blood Count Auto Di ff (Not yet reviewed by provider) Interpretation: Performing Lab:[facility], [address] [place] [phone] Notes/Report: White Blood Count 9.0 4.8-10.8 X10*3/uL [...] t yet reviewed by provider) Interpretation: Performing Lab:[address] [address] Notes/Report: PSA,Total (Free>4and<10) 0.67 0.00-4.00 ng/mL A [...] (Not yet reviewed by provider) Interpretation: Performing Lab:[address] [phone] Notes/Report: Urine, Clean Catch Color Urine Yellow Appearance Urine Clear PH 6.5 5.0-9.0 Glucose Urine UA Negative Negative mg/dL Urine Blood Large (3+) Negative Specific [place] - Urine 1.025 1.005-1.025 Urine Protein 30 [...] Notes/Report: Negative Occult Blood, Stool, Guaiac Neg Uric Acid Reviewed date:02/07/2024 03:16:03 PM Interpretation: Performing Lab:[facility], [address] [place] [phone] Notes/Report: Uric Acid 9.2 3.4-7.0 mg/dL Pathology Reviewed date:12/29/2023 04:59:15 PM Interpretation: Performing Lab:[facility], [address] [place] [phone] Notes/Report: Name: TikaShar Age/Sex: 58/M : 1965 Unit#: [id number] Attend Dr: Cleve Rincon MD Re12/27/23 Status: [facility] Location: [facility] Disch: SPEC : [id number] RECD: 12/27/23 STATUS: BRENDAN DE LA ROSA NUM: [id number] MICHELE: 12/27/[address] [facility] [address]: Cleve Rincon MD ENTERED: 12/27/23 SP TYPE: Surgical OTHR DR: Willie Palomino MD ORDERED: HE Stain/3, Gross Micro L4 Diagnosis Colon, right, polypectomy: Tubular adenoma; negative for high-grade dysplasia or carcinoma; multiple additional levels examined. Clinical History Pre-Op Dx: Other specified symptoms and signs involving the digestive system and abdomen Post-Op Dx: Polyp Microscopic Description Microscopic sections reviewed. Material Received Right colon polyp Gross Description Received in formalin labeled ?right colon polyp? is a 0.2 cm shepard-pink papular tissue fragment, submitted in toto in a cassette labeled A. CEDS Copies To: Willie Palomino MD [facility] [address] [place] [address] [address] [place] [address] Cleve Rincon MD [facility] [address] [place] [address] [address] [place] [address] Signed (signature on file) Shar Noonan MD 12/29/23 1553 END OF REPORT Lipid Panel with Reflex Reviewed date:04/24/2024 02:51:13 PM Interpretation: Performing Lab:[facility] [address] [address] Notes/Report: Triglycerides 166 <150 mg/dL Desirable Triglyceride: less than 150 mg/dL Borderline High Triglyceride 150-199 mg/dL High Triglyceride: 200-499 mg/dL Very High Triglyceride: greater than or equal to 5OO mg/dL Cholesterol 144 <200 mg/dL Desirable Cholesterol: less than 200 mg/dL Borderline High Cholesterol: 200-239 mg/dL High Cholesterol: greater than 239 mg/dL LDL Cholesterol Calculated 67 <100 mg/dL Desirable LDL: less than 100 mg/dL Near Optimal/Above Optimal LDL: 110-129 mg/dL Borderline High LDL: 130-159 mg/dL High LDL: 160-189 mg/dL Very High LDL: greater than or equal to 190 mg/dL HDL Cholesterol 44 >40 mg/dL Desirable HDL: greater than 40 mg/dL Note: This HDL assay may give artificially low results in patients with liver disease. LDL Cholesterol Direct Reviewed date:04/26/2024 04:16:37 PM Interpretation: Performing Lab:[address] [phone] Notes/Report: LDL Cholesterol Direct 85 <100 mg/dL Greatly elevated Triglycerides values (>1200 mg/dL) interfere with the dLDL assay. Desirable range <100 mg/dL for primary prevention; <70 mg/dL for patients with CHD or diabetic patients with > or = 2 CHD risk factors. THIS TEST WAS PERFORMED AT: [facility] [employer] [address] [place] [phone] MD Castro PACE Reviewed date:04/24/2024 12:27:04 PM Interpretation: Performing Lab:[address] [phone] Notes/Report: Castro Lovett See Note Specimen held untested for 24 hours; Call to request Chemistry testing. Complete Blood Count Auto Di ff Reviewed date:06/23/2024 09:54:07 AM Interpretation: Performing Lab:[address] [phone] Notes/Report: White Blood Count 9.5 4.8-10.8 X10*3/uL Red Blood Count 5.23 4.60-5.80 X10*6/uL Hemoglobin 16.4 14.0-18.0 g/dl Hematocrit 47.2 42.0-52.0 % Mean Corpuscular Volume 90.2 80.0-98.0 fL Mean Corpuscular Hemoglobin 31.4 27.0-33.0 pg Mean Corpuscular HGB Conc 34.7 31.0-36.0 g/dl Red Cell Distribution Width 12.0 11.0-16.0 % Platelet Count 274 160-400 X10*3/uL Mean Platelet Volume 9.4 9.4-12.4 fL Neutrophils Percent Auto 46.6 45-73 % Imm Gran Pct Auto 0.2 0.0-0.4 % Lymphocytes Percent Auto 33.7 20-40 % Monocytes Percent Auto 12.8 2-11 % Eosinophils Percent Auto 6.0 0-4 % Basophils Percent Auto 0.7 0-2 % NRBC Pct Auto 0.0 0.0-0.2 /100WBC Neutrophils Absolute Auto 4.4 2.0-8.3 x10*3/u L Imm Gran Abs Auto 0.02 0.00-0.03 X10*3/uL Lymphocytes Absolute Auto 3.2 1.2-4.9 X10*3/u L Monocytes Absolute Auto 1.2 0.1-1.2 X10*3/uL Eosinophils Absolute Auto 0.6 0.0-0.4 X10*3/u L Basophils Absolute Auto 0.1 0.0-0.2 X10*3/uL NRBC Abs Auto 0.000 0.0-0.012 X10*3/uL Comprehensive Met. Panel Reviewed date:06/23/2024 09:55:06 AM Interpretation: Performing Lab:[facility], [address] [place] [phone] Notes/Report: Sodium 137 135-145 mmol/L Potassium 4.0 3.3-5.1 mmol/L Chloride 104 96-108 mmol/L Carbon Dioxide 28 22-29 mmol/L Anion Gap 9 12-20 Blood Urea Nitrogen 20 9-16 mg/dL Creatinine 0.90 0.5-1.4 mg/dL Creatinine Clr Calc Pharmacy 119.6 eGFR (calculated from the MDRD study equation) and eCrCl (calculated from the Cockcroft-Gault equation) are based on different parameters and may not yield comparable results. If eCrCl result is absurd, please check patient's height/weight. Estimated Glomerular Filt Rate > 60 Chronic Kidney Disease: Estimated GFR < 60 mL/min/1.73m2 Severe Kidney Disease: Estimated GFR < 15 mL/min/1.73m2 Glucose Random 84 60-115 mg/dL Calcium 9.8 8.4-10.2 mg/dL Bilirubin Total 0.3 0.0-1.0 mg/dL Aspartate Amino Transferase 39 5-37 U/L Alanine Aminotransferase 47 0-40 U/L Total Protein 7.4 6.5-8.0 g/dL Albumin Level 4.5 3.5-5.0 g/dL Alkaline Phosphatase 39 39-117 U/L Magnesium Reviewed date:06/23/2024 09:53:27 AM Interpretation: Performing Lab:[address] [phone] Notes/Report: Magnesium 2.0 1.6-2.6 mg/dL Lipase Reviewed date:06/23/2024 09:53:19 AM Interpretation: Performing Lab:[facility], [address] [place] [phone] Notes/Report: Lipase 22 8-78 U/L SARS-CoV2/FLU/RSV Reviewed date:06/23/2024 09:53:34 AM Interpretation: Performing Lab:[address] [phone] Notes/Report: Influenza A PCR NEGATIVE Negative Influenza B PCR NEGATIVE Negative Resp Syncy Virus RNA Qual PCR NEGATIVE Negative SARS COV2 PCR INHOUSE NEGATIVE Negative All test results must be correlated with clinical findings. Negative results do not preclude SARS-CoV2, influenza A virus, influenza B virus and/or RSV infection and should not be used as the sole basis for treatment or other patient management decisions. Negative results must be combined with clinical observations, patient history, and epidemiological information. This test has not been evaluated for monitoring treatment of infection. This test has been authorized by the FDA under an Emergency Use Authorization (EUA) for use by authorized laboratories. Testing performed on the [employer] GeneXpert utilizing real-time RT-PCR. All SARS CoV2 and positive influenza A/B results are reported to [facility]. UA ClnCatch+Micro w/rflx Cul t Reviewed date:06/23/2024 09:57:26 AM Interpretation: Performing Lab:[facility], [address] [place] [phone] Notes/Report: [id number] Urine, Clean Catch Color Urine Yellow Appearance Urine Clear PH 6.0 5.0-9.0 Glucose Urine UA Negative Negative mg/dL Urine Blood Moderate (2+) Negative Specific [place] - Urine 1.020 1.005-1.025 Urine Protein Trace Neg-Trace mg/dL Urine Ketones Negative Negative mg/dL Nitrite Urine Negative Negative Leukocyte Esterase Urine Negative Negative RBC Urine 11-20 0-2 /HPF WBC Urine 0-5 0-5 /HPF Squamous Epithelial Cell Urine 0-2 0-2 /HPF Bacteria Urine None Seen None Seen Hyaline Casts Urine 0-2 0-2 /LPF Reason For Referral No Information Medications Medication SIG (Take, Route, Frequency, Duration) Notes Start Date End Date Status Rosuvastatin Calcium 5 MG take one table [...] needed Inhalation every 4 hrs 02/08/2023 Active Albuterol Sulfate HFA 108 (90 Base) MCG/ACT 1 puff as needed Inhalation every 4 hrs Not-Taking Colchicine 0.6 MG 1 tablet Orally twic e a day for 10 days 01/24/2017 Not-Taking Valsartan-hydroCHLOROthiazi de 160-12.5 MG TAKE ONE TABLET BY MOUTH EVERY DAY for 30 Active ZyrTEC Allergy 10 MG 1 tablet Orally Onc e a day for 30 day(s) Not-Taking Immunizations Vaccine Route Administration Date Status Comme nts Flu Vaccine IM Intramuscular 01/19/2011 Administered Flu Vaccine IM Intramuscular 11/04/2011 Administered TDaP Unknown 03/06/2012 Administered Hepatitis A (adult) Unknown 04/03/2012 Administered Flu Vaccine IM Intramuscular 11/07/2012 Administered Flu Vaccine Unknown 11/12/2013 Administered [facility] Fluarix Quadrivalent IM Intramuscular 12/23/2016 Administered Fluarix [...] Intramuscular 11/27/2021 Administered Tetanus Unknown 03/06/2012 Pending Social History Tobacco Use: Social History Observation Description Date Details (start date - stop date) Never Smoker NA - NA Tobacco Use/Smoking Question Answer Notes Patient is a nonsmoker Additional Findings: Tobacco Non-User Cu rrent non-smoker, currently using no form of tobacco Alcohol Screen Question Answer Notes Did you have a drink containing alcohol in the p ast year? 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) Active confirmed Problem 14361953 Essential hypert ension (I10) Active confirmed Problem 945043904 History of hemat uria (Z87.448) Active confirmed Problem BOJORQUEZ (nonalcohol ic steatohepatitis) (K75.81) Active confirmed Problem 47357285 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) Active confirmed Problem 116961656 Pure hypercholesterolemia (E78.00) Active confirmed Problem 190769132 Active asthma (J45.909) Active confirmed Vital Signs Blood pressure diastolic 78 mm Hg 04/26/2024 erickson ght is up 3 pounds since 02-07-24 Height 70.5 in 04/26/2024 weight is up 3 pounds since 02-07-24 Blood pressure systolic 132 mm Hg 04/26/2024 weig ht is up 3 pounds since 02-07-24 Weight 228 lbs 04/26/2024 weight is up 3 pounds since 02-07-24 BMI 32.25 kg/m2 04/26/2024 weight is up 3 pounds since 02-07-24 Encounters Encounter Location Date Provider Diagnosis Willie Palomino MD [address] [place] [id number] 04/24/2024 Willie Palomino Pure hypercholestero lemia E78.00 Willie Palomino MD [address] [place] [address] Drive [address] [place] [id number] 10/23/2024 Willie Palomino Pure hypercholestero lemia E78.00 and Essential hypertension I10 Willie Palomino MD [address] [place] [id number] 10/25/2023 Willie Palomino History of hematuria Z87.448 ; Annual physical exam Z00.00 ; Pure hypercholesterolemia E78.00 ; Essential hypertension I10 ; Atherosclerosis of aorta I70.0 ; Skin lesion of back L98.9 ; Active asthma J45.909 ; Colon cancer screening Z12.11 and Depression screening Z13.31 Willie Palomino MD [address] [place] [id number] 02/07/2024 Willie Palomino Acute idiopathic gou t involving toe of left foot M10.072 Willie Palomino MD [address] [place] [address] [id number] 04/26/2024 Willie Palomino Essential hypertensi on I10 ; Toe pain, left M79.675 and Pure hypercholesterolemia E78.00 Willie Palomino MD [address] [place] [address] Drive [address] [place] [id number] 06/25/2024 Willie Palomino Assessments Encounter Date Diagnosis (ICD Code) Assessment Notes Treatment Notes Treatment Clinical Notes Section Notes 04/24/2024 Pure hypercholesterolemia (ICD-10 - E78.00) 10/23/2024 Pure hypercholesterolemia (ICD-10 - E78.00) 10/25/2023 History of hematuria (ICD-10 - Z87.448) has been evaluated in past 10/25/2023 Annual physical exam (ICD-10 - Z00.00) labs reviewed and discussed with patient 02/07/2024 Acute idiopathic gou t involving toe of left foot (ICD-10 - M10.072) patient verbalized understanding of medication and directions for use 04/26/2024 Essential hypertensi on (ICD-10 - I10) doing well on meds, will continue current regiment 04/26/2024 Toe pain, left (ICD- 10 - M79.675) 10/23/2024 Essential hypertensi on (ICD-10 - I10) 10/25/2023 Pure hypercholesterolemia (ICD-10 - E78.00) stable, will continue current regiment 04/26/2024 Pure hypercholesterolemia (ICD-10 - E78.00) stable, hilda continue current regiment 10/25/2023 Essential hypertensi on (ICD-10 - I10) doing well. will continue current regiment 10/25/2023 Atherosclerosis of aorta (ICD-10 - I70.0) will continue to monitor 10/25/2023 Skin lesion of back (ICD-10 - L98.9) difficult to evaluate has been scratching. will recheck at next visit 10/25/2023 Active asthma (ICD-1 0 - J45.909) stable, will continue current regiment 10/25/2023 Colon cancer screeni ng (ICD-10 - Z12.11) guaiac negative 10/25/2023 Depression screening (ICD-10 - Z13.31) negative screen 04/26/2024 Other will continue current regiment Plan Of Treatment Pending Test Test Name Order Date Electrocardiogram (EKG) 07/21/2015 Electrocardiogram (EKG) 08/02/2016 LIPID PANEL WITH REFLEX TO DIRECT LDL EEG 04/10/2013 Complete Blood Count Auto Diff Comprehensive Ione. Panel Fast Liver Panel 04/24/2024 Lipid Panel 10/23/2024 PSA,Total (Free>4and<10) 10/23/2024 US abdomen mendoza w elastography 08/24/2021 US abdomen complete 08/13/2021 RT pulmonary function test 06/09/2020 UA ClnCatch+Micro w/rflx Cult 10/23/2024 Next Appt Details Provider Name:Willie gonzales, 11/02/2024 09:15:00 AM, [address] [place] [address], [address], [place], [place], [phone], Provider Name:Willie Bazan ier, 11/16/2024 11:00:00 AM, [address], [address], [place], [phone], Insurance Providers Payer Name Payer Address Payer Phone Subscriber Number Group Number Insured Name Patient Relationship to Insured Coverage Start Date Coverage End Date [address] [place] [phone] [id number] Shar Villela Self - patient is the insured 5 Medical (General) History Medical History History ICD Code hematuria worked [...]
--- OUTSIDE RECORDS SUMMARY | 2024-10-23 12:12 | XMS_ITS ---
Author Name [facility] Organization Unknown History of Medication Use Medication Directions Dispensed Refills Start Date End Date Stat rosuvastatin 5 mg tablet TAKE ONE TABLET BY MOUTH EVERY EVENING active Allergies Allergen Reaction Severity Comment Documented Date Source Statu s HOUSE DUST ENS[facility] MOLD [facility] Problems Problem Status Onset Date Problem Type Date of Resoluti on Source Patellofemoral syndrome of right knee active 2023-01-11 ProblemAct [facility] Tendonitis of right patellar tendon active 2023-01-11 ProblemAct [facility] Encounters Encounter Type Encounter Reason Primary Diagnosis Location Date Ambulatory [facility] 01/11/2023 Ambulatory [facility] 01/11/2023 Ambulatory [facility] 01/11/2023 Ambulatory [facility] 01/11/2023
--- OUTSIDE RECORDS SUMMARY | 2024-10-23 12:12 | XMS_ITS | Encounter Summary ---
Author Organization [facility] Address [address] [place] [phone] Phone Care Team Providers Care Wire Sawyer Name Role Phone Willie Palomino MD Primary Care Provider Encounter Details Date Type Department Care Team (Late st Contact Info) Description 08/17/2021 Transcribe Orders Virtual Department [address] [place] [address] Willie Palomino MD [address] [place] [address] [place] [address] Abdominal pain, unspecified abdominal location (Primary Dx) Social History Tobacco Use Types Packs/Day Years Used Date Smoking Tobacco: Never Assessed Sex and Gender Information Value Date Recorded Sex Assigned at Not on file Legal Sex Male 8:14 AM EDT Gender Identity Not on file Sexual Orientation Not on file documented as of this encounter Plan of Treatment Not on file documented as of this encounter Results * US ABDOMEN COMPLETE (ADULT) (08/21/2021 3:24 PM EDT) Anatomical Region Laterality Modality Abdomen Ultrasound 08/21/2021 3:41 PM EDT Impressions 08/21/2021 3:44 PM EDT 1.Hepatic steatosis Narrative 08/21/2021 3:44 PM EDT US ABDOMEN COMPLETE (ADULT) History: Abdominal pain TECHNIQUE: Abdominal Ultrasound Complete. COMPARISON: There is no prior study available for comparison. FINDINGS: Liver: Diffusely increased echogenicity consistent with fatty liver. Main Portal Vein: Patent with normal direction of flow. Gallbladder: Normal. No gallstones or gallbladder wall thickening. Biliary: Normal. No intrahepatic or extrahepatic biliary ductal dilatation. The common bile duct measures 4 mm. Pancreas: Incompletely visualized. Spleen: Normal. No splenomegaly. Kidneys: Normal. No stones or hydronephrosis. The right kidney measures 11.9 cm the left kidney measures 11.7 cm. Aorta: Normal, where visualized sonographically. IVC: Normal intrahepatic segment. Procedure Note Whitney Mayen MD - 08/21/2021 US ABDOMEN COMPLETE (ADULT) History: Abdominal pain TECHNIQUE: Abdominal Ultrasound Complete. COMPARISON: There is no prior study available for comparison. FINDINGS: Liver: Diffusely increased echogenicity consistent with fatty liver. Main Portal Vein: Patent with normal direction of flow. Gallbladder: Normal. No gallstones or gallbladder wall thickening. Biliary: Normal. No intrahepatic or extrahepatic biliary ductaldilatation. The common bile duct measures 4 mm. Pancreas: Incompletely visualized. Spleen: Normal. No splenomegaly. Kidneys: Normal. No stones or hydronephrosis. The right kidney zivwschw66.9 cm the left kidney measures 11.7 cm. Aorta: Normal, where visualized sonographically. IVC: Normal intrahepatic segment. IMPRESSION: 1.Hepatic steatosis us Willie Palomino MD IMG US ABDOMEN Final R esult documented in this encounter Visit Diagnoses Diagnosis Abdominal pain, unspecified abdominal location- Primary Abdominal pain, unspecified abdominal location documented in this encounter Care Teams Wire Sawyer Relationship Specialty Start Date End Date Willie Palomino MD [address] [place] [address] [place] [address] PCP - General Internal Medicine 08/17/21 documented as of this encounter Additional Source Comments The information contained in this document represents components of the legal health record. It is not the complete legal health record.[facility]
--- OUTSIDE RECORDS SUMMARY | 2024-10-23 12:12 | XMS_ITS | Encounter Summary ---
Author Organization Formerly [facility] Address [address] [place] [phone] Phone Care Team Providers Care Cheerleading Coach Name Role Phone Willie Palomino MD Primary Care Provider Encounter Details Date Type Department Care Team (Late st Contact Info) Description 08/28/2021 Transcribe Orders Virtual Department [address] [place] [address] Willie Palomino MD [address] [place] [address] [place] [address] BOJORQUEZ (nonalcoholic steatohepatitis) (Primary Dx) Social History Tobacco Use Types Packs/Day Years Used Date Smoking Tobacco: Never Assessed Sex and Gender Information Value Date Recorded Sex Assigned at Not on file Legal Sex Male 8:14 AM EDT Gender Identity Not on file Sexual Orientation Not on file documented as of this encounter Plan of Treatment Not on file documented as of this encounter Results * US LIVER WITH ELASTOGRAPHY (09/17/2021 8:44 AM EDT) Anatomical Region Laterality Modality Abdomen Ultrasound 09/17/2021 2:03 PM EDT Impressions 09/17/2021 2:56 PM EDT 1.Hepatic steatosis. TECHNIQUE: Focused ultrasound evaluation of the liver. Volumetric sweeps were obtained and reviewed. COMPARISON: Hepatic sonography 08/21/2021 FINDINGS: LIVER: Diffusely echogenic liver parenchyma is compatible with steatosis. Focal fatty sparing adjacent to the gallbladder fossa. No focal hepatic lesions demonstrated sonographically lesions. ELASTOGRAPHY: Median shear wave speed is: m/s. IQR to median ratio: . BILIARY: Gallbladder: Normal, nondistended with normal gallbladder wall thickness. No cholelithiasis. Common bile duct measures 5 mm. IMPRESSION: The median shear wave speed is m/s. SOCIETY OF RADIOLOGISTS IN ULTRASOUND CONSENSUS: In the setting of elevated liver function tests, nonfasting, vascular congestion, etc., the stage of liver fibrosis may be overestimated. In some patients with NAFLD, the cut-off values for compensated advanced chronic liver disease may be lower. In causes other than viral hepatitis and NAFLD, the cut-off values are not well established. Narrative 09/17/2021 2:56 PM EDT US LIVER WITH ELASTOGRAPHY TECHNIQUE: US Limited Abdomen with Liver Elastography. COMPARISON: Abdominal sonography 08/21/2021 FINDINGS: Liver: Diffusely increased echogenicity consistent with fatty liver. No focal hepatic lesions demonstrated sonographically. Gallbladder: Normal. No gallstones or gallbladder wall thickening. Biliary: Normal. No intrahepatic or extrahepatic biliary ductal dilatation. The common bile duct measures 5 mm. Pancreas: Incompletely visualized. Aorta: Normal, where visualized sonographically. IVC: Normal intrahepatic segment. Elastography: Sonographic assessment (kPa): 8.7 Risk of fibrosis: This is less than 9 kPa, which in the absence of other known clinical signs, rules out compensated advanced chronic liver disease. IQR/Med: 3.2% SOCIETY OF RADIOLOGISTS IN ULTRASOUND CONSENSUS: In the setting of elevated liver function tests, nonfasting, vascular congestion, etc., the stage of liver fibrosis may be overestimated. In some patients with NAFLD, the cut-off values for compensated advanced chronic liver disease may be lower. In causes other than viral hepatitis and NAFLD, the cut-off values are not well established. Joanne RG, Godfrey SR, Aníbal D, Krystian-Gabe G, Tamaraaishadi G. Update to the Society of Radiologists in Ultrasound Liver Elastography Consensus Statement. Radiology. 2020 Sep;296(2):263-274. doi: 10.1148/radiol.[id number]. Epub 2019Aug 06. PMID: [id number]. Procedure Note Whitney Mayen MD - 09/17/2021 US LIVER WITH ELASTOGRAPHY TECHNIQUE: US Limited Abdomen with Liver Elastography. COMPARISON: Abdominal sonography 08/21/2021 FINDINGS: Liver: Diffusely increased echogenicity consistent with fatty liver. Nofocal hepatic lesions demonstrated sonographically. Gallbladder: Normal. No gallstones or gallbladder wall thickening. Biliary: Normal. No intrahepatic or extrahepatic biliary ductaldilatation. The common bile duct measures 5 mm. Pancreas: Incompletely visualized. Aorta: Normal, where visualized sonographically. IVC: Normal intrahepatic segment. Elastography: Sonographic assessment (kPa): 8.7 Risk of fibrosis: This is less than 9 kPa, which in theabsence of other known clinical signs, rules out compensated advancedchronic liver disease. IQR/Med: 3.2% SOCIETY OF RADIOLOGISTS IN ULTRASOUND CONSENSUS: In the setting of elevated liver function tests, nonfasting, vascularcongestion, etc., the stage of liver fibrosis may be overestimated. Insome patients with NAFLD, the cut-off values for compensated advancedchronic liver disease may be lower. In causes other than viral hepatitisand NAFLD, the cut-off values are not well established. Joanne RG, Godfrey SR, Aníbal D, Dipti G, Li G. Update to theSociety of Radiologists in Ultrasound Liver Elastography ConsensusStatement. Radiology. 2019;296(2):263-274. doi:10.1148/radiol.[id number]. Epub 2019Aug 06. PMID: [id number]. IMPRESSION: 1.Hepatic steatosis. TECHNIQUE: Focused ultrasound evaluation of the liver. Volumetric sweeps wereobtained and reviewed. COMPARISON: Hepatic sonography 08/21/2021 FINDINGS: LIVER: Diffusely echogenic liver parenchyma is compatible with steatosis.Focal fatty sparing adjacent to the gallbladder fossa. No focal hepaticlesions demonstrated sonographically lesions. ELASTOGRAPHY: Median shear wave speed is: m/s. IQR to median ratio: . BILIARY: Gallbladder: Normal, nondistended with normal gallbladder wallthickness. No cholelithiasis. Common bile duct measures 5 mm. IMPRESSION: The median shear wave speed is m/s. SOCIETY OF RADIOLOGISTS IN ULTRASOUND CONSENSUS: In the setting of elevated liver function tests, nonfasting, vascularcongestion, etc., the stage of liver fibrosis may be overestimated. Insome patients with NAFLD, the cut-off values for compensated advancedchronic liver disease may be lower. In causes other than viral hepatitisand NAFLD, the cut-off values are not well established. us Willie Palomino MD IMG US ABDOMEN Final R esult documented in this encounter Visit Diagnoses Diagnosis BOJORQUEZ (nonalcoholic steatohepatitis)- Primary Other chronic nonalcoholic liver disease BOJORQUEZ (nonalcoholic steatohepatitis) Other chronic nonalcoholic liver disease documented in this encounter Care Teams Cheerleading Coach Relationship Specialty Start Date End Date Willie Palomino MD [address] [place] [address] [place] [address] PCP - General Internal Medicine 08/17/21 documented as of this encounter Additional Source Comments The information contained in this document represents components of the legal health record. It is not the complete legal health record.[facility]
--- OUTSIDE RECORDS SUMMARY | 2024-10-23 12:13 | XMS_ITS | Patient Health Record ---
Author Organization [facility] Address [address] [place] [address] Care Team Providers Care Color Shop Helper Name Role Phone Willie Palomino MD Primary Care Provider Harshal Rincon Jr, Cleve Unavailable Allergies Allergen (clinical drug ingredient) Drug/Non Drug Allergy documented on EMR Reaction Allergy Type Onset Date Status hay fever,pollen, du st mold (uncoded) Unknown Allergy Active Results Component Value Reference Range Notes Pathology Reviewed date:01/02/2024 09:05:57 AM Interpretation: Performing Lab:[facility], [address] [place] [id number] Notes/Report: Reason For Referral No Information Medications Medication [...] MOUTH EVERY DAY Oral for 30 Active Immunizations Vaccine Route Administration Date Status Comme nts Influenza Unknown 12/21/2022 Administered Problems Problem Type SNOMED Code ICD Code Onset Dates Problem Status W/U Status Risk Notes Problem 228132846 Colon cancer screening (Z12.11) Active confirmed Problem 461185114 Blood in stool (K92.1) Active confirmed Problem 591065780 Abnormal findings in stool (R19.5) Active confirmed Problem 34992609 Change in bowel movement (R19.8) Active confirmed Problem 390823169 BOJORQUEZ (nonalcoholic steatohepatitis ) (K75.81) Active confirmed Encounters Encounter Location Date Provider Diagnosis [facility] [place] [facility] [address] [place], [place] [id number] 12/27/2023 Cleve Rincon Jr Colon cancer screening Z12.11 and Colon polyps K63.5 [facility] [address] [place] [phone] 11/28/2023 Cleve Rincon Jr [facility] [address] [place] [phone] 01/02/2024 Cleve Rincon Jr Assessments Encounter Date Diagnosis (ICD Code) Assessment Notes Treatment Notes Treatment Clinical Notes Section Notes 12/27/2023 Colon cancer screening (ICD-10 - Z12.11) 12/27/2023 Colon polyps (ICD-10 - K63.5) Plan Of Treatment Pending Test Test Name Order Date Liver Fibrosis Pnl 08/31/2023 Future Test Test Name Order Date COLONOSCOPY 08/15/2015 COLONOSCOPY 08/31/2023 Insurance Providers Payer Name Payer Address Payer Phone Subscriber Number Group Number Insured Name Patient Relationship to Insured Coverage Start Date Coverage End Date [facility] [address] [place] [address] [id number] MIKE READ Self - patient is the insured Medical (General) History Medical History History ICD Code Gout Microscopic hematuria Colonoscopy 10/13, normal, ten-year follo wup Surgical History Surgery Date(Month/Year) arthroscopy to right knee
[2024-10-23 12:15] LABS: Alanine Aminotransferase 41 U/L (0-40); Albumin Level 4.7 g/dL (3.5-5.0); Alkaline Phosphatase 39 U/L (39-117); Anion Gap 14 (12-20); Aspartate Amino Transferase 39 U/L (5-37); Blood Urea Nitrogen 20 mg/dL (9-16); Calcium 9.8 mg/dL (8.4-10.2); Carbon Dioxide 27 mmol/L (22-29); Chloride 103 mmol/L (96-108); Cholesterol 177 mg/dL (<200); Estimated Glomerular Filt Rate > 60; HDL Cholesterol 43 mg/dL (>40); Potassium 4.5 mmol/L (3.3-5.1); Sodium 139 mmol/L (135-145); Total Protein 7.1 g/dL (6.5-8.0); Triglycerides 171 mg/dL (<150)
== END 2024-10-23 11:17 | disposition home or self-care (01) ==
LOC: HO.LNP 11:16
PROVIDERS: Visit Provider Internal Medicine
DX: Z12.5 Encounter for screening for malignant neoplasm of prostate (principal); I10 Essential (primary) hypertension; E78.00 Pure hypercholesterolemia, unspecified
CPT/HCPCS: 80053; 80061; 81001; 84153; 85025